=== PATIENT | female | born 1955 | race Caucasian/White ===

== ENCOUNTER 2020-04-12 08:06 | Outpatient (REF) | payer OTHER, SELFPAY ==
--- NOTE | 2020-04-12 11:32 | FL_ITS ---
EXAMINATION: XR FLUOROSCOPY WITH IMAGES CLINICAL INFORMATION: G58.8 - Other specified mononeuropathies COMPARISON: None. TECHNIQUE: Fluoroscopy performed by Corry Mckeon NP. Fluoroscopy time: 0.3 minutes DAP: 2.93 Gycm2 Images: 2 FINDINGS: There are 3 spinal needles overlying the left superior medial iliac wing. FL/FL guidance in treatment room IMPRESSION: Fluoroscopy for pain management procedures.
== END 2020-04-12 08:07 | disposition home or self-care (01) ==
LOC: HO.RADIR 08:06
PROVIDERS: Visit Provider Anesthesiology
DX: G58.8 Other specified mononeuropathies (principal)
CPT/HCPCS: 64450; Q9967

== ENCOUNTER → 2020-04-18 13:46 | Outpatient (BNVA) | payer OTHER, SELFPAY | PROVIDERS: PCP Internal Medicine; Referring Provider Internal Medicine; Visit Provider Anesthesiology | DX: M47.816 Spondylosis without myelopathy or radiculopathy, lumbar region (principal); G58.8 Other specified mononeuropathies; Z98.890 Other specified postprocedural states | CPT/HCPCS: 99212 ==

== ENCOUNTER 2020-04-26 05:09 | Outpatient (REF) | payer OTHER, SELFPAY ==
--- NOTE | 2020-04-26 09:13 | FL_ITS ---
EXAMINATION: XR FLUOROSCOPY WITH IMAGES CLINICAL INFORMATION: Spondylosis without myelopathy COMPARISON: 04/12/2020 TECHNIQUE: Fluoroscopy performed by Dr. Mckeon. Fluoroscopy time: 0.6 minutes DAP: 3.94 Gycm2 Images: 1 FL/FL guidance in treatment room IMPRESSION: A single fluoroscopic spot image demonstrates a needle with the tip positioned over the right superior endplate of the L1 vertebral body.
== END 2020-04-26 05:10 | disposition home or self-care (01) ==
LOC: HO.RADIR 05:09
PROVIDERS: Visit Provider Anesthesiology
DX: M47.816 Spondylosis without myelopathy or radiculopathy, lumbar region (principal); G58.8 Other specified mononeuropathies
CPT/HCPCS: 64493; 64494; 64495; Q9967

== ENCOUNTER 2020-09-07 14:00 | Outpatient (RCR) | payer OTHER, SELFPAY ==
--- NOTE | 2020-07-20 15:32 | MHC.PT.EP ---
[facility] [place] Office [place] Office [place] Office [address] Faustino Alcantar [address] [phone] F: [phone] F: [phone] F: [phone] F: [phone] Physical Therapy Plan of Care Date of Evaluation: 07/20/20 Date of Surgery: NA Diagnosis: SPONDYLOSIS WITHOUT MYELOPATHY OR RADICULOPATHY, LUMBAR REGION Assessment: Pt IS 65 YO F REFERRED TO PT FROM DR BENTLEY WITH LUMBAR SPONDYLOSIS. REPORTS LONG HX OF BACK PAIN WITH BOUTS OF RELIEF WITH INJECTIONS. BEFORE NEXT INJECTION, Pt IS REQUIRED TO PARTAKE IN PT. PRESENTS WITH DECREASED LE FLEXIBILITY AND STRENGTH WITH DECREASED CORE STRENGTH AND TIGHT LUMBAR PARASPINALS. Pt REPORTS HAS HAD PT IN PAST WITH SOME RELIEF BUT DOESNT CONTINUE WITH HOME PROGRAM (ED RE IMPORTANCE OF EX/STRETCHES EVEN IF HAS INJECTIONS). SHOULD BENEFIT FROM PT TO HELP ESTABLISH A HOME PROGRAM TO COINCIDE WITH HER INJECTIONS (OR TO POSSIBLY ASSIST WITH BACK PAIN RELIEF SO INJECTIONS ARE NOT NEEDED) Frequency and Duration: The patient will be seen 2X/WK X 6 WKS Short Term Goals: 1. Pt TO PERF 2-3 TASKS WITH PROPER BODY MECH 2. I HEP WITH DC EX PLAN Skilled Nursing Goals: 1 DECREASED BACK PAIN AT LEAST 50% WITH ADLS 2. INCREASED SUSANNE TO POSITIONS (IE SIT/STAND/WALK) FOR LONGER PDS OF TIME Treatment Plan: Modalities to reduce pain, spasms and effusion. Manual therapy to restore motion and function. Therapeutic exercise to improve strength and flexibility. Neuromuscular re-education for posture and balance. Therapeutic activities to return to functional activities of daily living. Electronically signed by: DIANN CARBALLO PT Please sign and return to therapist. Thank you for your referral.
--- NOTE | 2020-09-07 15:09 | MHC.PT.DC ---
[facility] [place] Office [place] Office [place] Office [address] Faustino Alcantar [address] [phone] F: [phone] F: [phone] F: [phone] F: [phone] Physical Therapy Discharge Report Diagnosis: SPONDYLOSIS WITHOUT MYELOPATHY OR RADICULOPATHY, LUMBAR REGION Date of Surgery: NA Date of Evaluation: 07/20/20 Date of Discharge: 09/07/20 Treatments to Date: 11 Cancellations to Date: 3 No Shows to Date: Discharge Status: Discharge Summary: HAS MET MOST PT GOALS. GOOD PERF EXS (I WITH HEP). REPORTS CONTINUED BACK PAIN..PLANNING ON CALLING FOR FU WITH DR BENTLEY FOR INJECTION. Pt ED RE IMPORTANCE OF CONTINUING WITH EX/STRETCHES UPON DC Electronically signed by: DIANN CARBALLO PT Please sign and return to therapist. Thank you for your referral.
== END 2020-09-07 15:10 | disposition other institution (70) ==
LOC: HO.PTWFD 14:00
PROVIDERS: Visit Provider Anesthesiology
DX: M47.816 Spondylosis without myelopathy or radiculopathy, lumbar region (principal)
CPT/HCPCS: 97110; 97140; 97162; 97530; 97535

== ENCOUNTER → 2020-10-05 14:49 | Outpatient (BNVA) | payer OTHER, SELFPAY | PROVIDERS: PCP Internal Medicine; Visit Provider Anesthesiology ==

== ENCOUNTER 2020-10-10 13:46 | Outpatient (REF) | payer OTHER, SELFPAY ==
--- NOTE | ~2020-10-10 | MR_ITS ---
MR LUMBAR SPINE WITHOUT CONTRAST CLINICAL INFORMATION: Spondylosis without myelopathy or radiculopathy. COMPARISON: Lumbar spine MRI 01/06/2018. TECHNIQUE: MRI of the lumbar spine was obtained using routine sequences without contrast. FINDINGS: 5 nonrib-bearing lumbar-type vertebral bodies. Straightening of the lumbar lordosis. Grade 1 anterolisthesis of L3 on L4. There is no bone marrow edema. There are no acute fractures. Vertebral body heights are maintained. Moderate disc volume loss at L1-L2 and L5-S1. Multilevel endplate osteophytes. Chronic upper endplate height loss on the right side at L2. Conus terminates at the L1 level. No significant soft tissue findings. L1-L2: Diffuse annular disc bulge with a superimposed shallow central disc protrusion that mildly narrows the central canal, slightly progressed. No foraminal stenosis. L2-L3: Diffuse annular disc bulge with a superimposed far left lateral disc osteophyte protrusion. Severe left and mild right facet arthropathy. Mild narrowing of the central canal and mild bilateral foraminal encroachment. Findings unchanged. L3-L4: Grade 1 anterolisthesis. Severe bilateral facet arthropathy. Diffuse annular disc bulge the superimposed shallow left paracentral disc protrusion. Stable mild narrowing of the central canal. Mild bilateral foraminal encroachment. Findings unchanged. L4-L5: There is a diffuse annular disc bulge the superimposed broad-based central disc protrusion that continues to compress the traversing L5 nerve root within the subarticular zones bilaterally. Moderate bilateral facet arthropathy. No central canal stenosis. Mild bilateral foraminal encroachment. L5-S1: Large central disc osteophyte protrusion continues to compress the traversing S1 nerve roots within the subarticular zones bilaterally, similar to the previous study. Mild narrowing of the central canal. Disc osteophyte and facet arthropathy result in stable moderate to severe bilateral foraminal stenosis with mass effect on the exiting L5 nerve roots bilaterally. MR/MR lumbar spine wo con IMPRESSION: - At L5-S1, a large central disc osteophyte protrusion continues to compress the traversing S1 nerve roots within the subarticular zones bilaterally and multifactorial degenerative changes result in stable moderate to severe bilateral foraminal stenosis with mass effect on the exiting L5 nerve roots bilaterally. - At L4-L5, a broad-based central disc protrusion continues to compress the traversing L5 nerve roots within the subarticular zones bilaterally. -Stable grade 1 degenerative anterolisthesis of L3 on L4 in the setting of advanced bilateral facet arthropathy at this level. Additional stable spondylitic changes throughout the lumbar spine as described.
== END 2020-10-10 13:47 | disposition home or self-care (01) ==
LOC: HO.MRI 13:46
PROVIDERS: Visit Provider Anesthesiology
DX: M47.816 Spondylosis without myelopathy or radiculopathy, lumbar region (principal)
CPT/HCPCS: 72148

== ENCOUNTER 2020-10-21 13:39 | Day surgery (SDC) | payer OTHER, SELFPAY ==
--- NOTE | 2020-10-19 12:51 | HO.ANESPROP2 ---
HPI - Anesthesia Eval Consult details Narrative: 65yo F for bilateral Facet Joint Injection,L4-L5 and L5-S1 PMFSH Active Problems Active Problems: All Active Problems (Updated 10/17/20 @ 09:38 by Loly Jorge) Other specified mononeuropathies (Acute) Spondylosis of lumbar spine (Acute) Other specified mononeuropathies (Acute) Past Medical History Medical History (Updated 10/17/20 @ 09:38 by Loly Jorge) Depression Hx of insomnia Other specified mononeuropathies Spondylosis of lumbar spine Surgical History Surgical History (Updated 10/17/20 @ 09:38 by Loly Jorge) History of surgery Meds Allergies Allergy/AdvReac Type Severity Reaction Status Date / Time Iodinated Contrast Media Allergy Severe HIVES Verified 10/17/20 09:34 [Iodinated Contrast Media - IV Dye] sulfamethoxazole Allergy Unknown Unknown Verified 10/17/20 09:34 [From Bactrim] trimethoprim [From Bactrim] Allergy Unknown Unknown Verified 10/17/20 09:34 morphine AdvReac Severe CAN NOT Verified 10/17/20 09:34 CONTROL BEHAVIOR Home Medications Medication Instructions Recorded Confirmed Last Taken Type citalopram 40 mg tablet 20 mg PO DAILY 10/05/20 Unknown History zolpidem 10 mg tablet 10 mg PO BEDTIME PRN 10/05/20 Unknown History Exam Exam Date and Time: October 19, 2020 1251 Assessment and Plan Assessment Anesthesia Assessment: Chart Reviewed
--- NOTE | ~2020-10-21 | FL_ITS ---
EXAMINATION: XR FLUOROSCOPY WITH IMAGES CLINICAL INFORMATION: Facet joint injection COMPARISON: None. TECHNIQUE: Fluoroscopy performed by Dr. Ivan Sosa. Fluoroscopy time: 0.7 minutes DAP: 3.7 mGycm2 Images: 4 FINDINGS: Images demonstrate needle placement and contrast injection the bilateral lower lumbar spine facet joints at L4-L5 and L5-S1 FL/FL guidance in OR IMPRESSION: Fluoroscopy guidance for bilateral lower lumbar spine facet joint injection.
[2020-10-21 13:54] VITALS: BP 153/97; PULSE 87; RESP 18; TEMP 36.2; O2SAT 93; BMI 24.2
--- NOTE | 2020-10-21 14:08 | MHC.SHP ---
Pre-Procedural Eval Section B Chief Complaint: spondylosis Details of Present Illness: the same as above Relevant Family History (Specify if Yes): No Relevant Social History: None Present Medications: see Short Stay Collaborative assessment Medical History: No relevant PMH History of Previous Operations: No relevant previous surgery Allergies: Allergies Allergy/AdvReac Type Severity Reaction Status Date / Time Iodinated Contrast Media Allergy Severe HIVES Verified 10/21/20 13:47 [Iodinated Contrast Media - IV Dye] sulfamethoxazole Allergy Mild Hives Verified 10/21/20 13:47 [From Bactrim] trimethoprim [From Bactrim] Allergy Mild Hives Verified 10/21/20 13:47 morphine AdvReac Severe CAN NOT Verified 10/21/20 13:47 CONTROL BEHAVIOR Review of Systems Sugical H&P ROS: Negative: Constitution, Cardiovascular, Respiratory, Neurological, Psychiatric, Hem-Onc, Allergic/Immunologic, Gastrointestinal, Genitourinary, Musculoskeletal, Integumentary, Endocrine and Eyes/Ears/Nose/Throat Exam Surgical H&P Exam: Normal: HEENT, Normal: Heart, Normal: Lungs, Normal: Extremities, Normal: Abdomen, Normal: Skin and Normal: Neurological Plan Diagnosis/Plan: Unchanged I have reviewed the history and physical and performed a pertinent physical examination on my patient. No changes have occurred unless specified.
--- NOTE | 2020-10-21 14:44 | PM.OP ---
Brief Operative Note Date of Service: 10/21/20 Pre-op diagnosis: facet joint arthropathy, lumbar sondylosis Post-op diagnosis: same Implants: L4-5 L5-S1 bilateral facet joint injections. Surgeon: Ivan Sosa MD Anesthesia: none Was an Metal Control Coordinator used for this Procedure?: No Estimated blood loss (mL): 3 Condition: stable Disposition: PACU
[2020-10-21 14:47] VITALS: BP 146/99; PULSE 84; RESP 20; TEMP 37.2; O2SAT 97
--- NOTE | 2020-10-21 14:54 | W.PM.OPN ---
Operative Note Operative Note Date of Service: 10/21/20 Narrative: Time-out was taken to identify the correct patient,procedure and side prior to starting the procedure. With the patient lying in the prone position, the patient was prepped and draped in the usual sterile fashion using ChloraPrep and a Sterile utility drapes.. The L4-L5 and L5-S1 levels were determined under fluoroscopy. Local anesthetic was given by raising a skin wheal and going down to the hub of a 27-gauge 1.25-inch needle. The 22-gauge 3.5-inch Quincke needle was introduced into each facet joint above. Omnipaque 300 was also injected to confirm intraarticular spread, and confirm no vascular runoff. Lateral view was obtained on each joint demonstrating the tip of the needle away and above of the patient's foraminae. Bupivacaine 0.5% 1.5 mL mixed with Kenalog was then injected slowly. Total dose of Kenalog was 80 mg. [place] were removed. Sterile Band-Aids were applied.The procedure was completed without complications and was tolerated well. The patient was discharged in stable condition.
== END 2020-10-21 15:10 ==
LOC: HO.SSS 13:40
PROVIDERS: PCP Internal Medicine; Visit Provider Anesthesiology
PROC: (CPT 64493; principal; 2020-10-21 14:50)
DX: M47.816 Spondylosis without myelopathy or radiculopathy, lumbar region (principal)
CPT/HCPCS: 64493; 64494; J3300; Q0163; Q9967

== ENCOUNTER → 2020-11-24 14:02 | Outpatient (BNVA) | payer OTHER, SELFPAY | PROVIDERS: PCP Internal Medicine; Visit Provider Anesthesiology | DX: M47.816 Spondylosis without myelopathy or radiculopathy, lumbar region (principal); G58.8 Other specified mononeuropathies; Z79.899 Other long term (current) drug therapy | CPT/HCPCS: 99212 ==

== ENCOUNTER 2021-04-27 10:30 | Day surgery (SDC) | payer MEDICARE, MEDICAID, SELFPAY ==
--- NOTE | ~2021-04-27 | FL_ITS ---
EXAMINATION: XR FLUOROSCOPY WITH IMAGES CLINICAL INFORMATION: Lumbar injection COMPARISON: None. TECHNIQUE: Fluoroscopy performed by Dr. Ivan Sosa. Fluoroscopy time: 0.4 minutes DAP: 4 mGycm2 Images: 4 FINDINGS: Fluoroscopy guidance was provided for facet joint injections of the bilateral lower lumbar spine. FL/FL guidance in OR IMPRESSION: Fluoroscopy guidance for lumbar spine pain management procedure.
[2021-04-27 10:42] VITALS: BMI 24.5
[2021-04-27 11:00] VITALS: BP 117/73; PULSE 80; RESP 16; TEMP 36.3; O2SAT 97
--- NOTE | 2021-04-27 11:51 | P.CONAN_ITS ---
HPI - Anesthesia Eval Consult details Narrative: 66 yo female patient for Bilateral L4-L5 & L5-S1 Facet Joint Inje ctions PMFSH Active Problems Active Problems: All Active Problems (Updated 04/27/21 @ 10:46 by Codie Serrano RN) Other specified mononeuropathies (Acute) Spondylosis of lumbar spine (Acute) Other specified mononeuropathies (Acute) COPD stable. Did not use inhaler today Past Medical History Medical History COPD (chronic obstructive pulmonary disease) Depression Elevated cholesterol Hx of attention deficit disorder Hx of insomnia Other specified mononeuropathies Spondylosis of lumbar spine Family History Family history of problems with anesthesia: No Surgical History Surgical History History of surgery Hx of cervical spine surgery History of Problems with Anesthesia: No Social History Social History Patient Tobacco Use Status: Former Tobacco user Quit Date: 15 mos ago Tobacco use type: Cigarette Use of substances other than those prescribed or required for medical reasons: No Are you DNR?: No Advance Directives: No Advance Directives Information Provided: Yes Meds Allergies Allergy/AdvReac Type Severity Reaction Status Date / Time Iodinated Contrast Media Allergy Severe HIVES Verified 04/27/21 10:46 [Iodinated Contrast Media - IV Dye] sulfamethoxazole Allergy Mild Hives Verified 04/27/21 10:46 [From Bactrim] trimethoprim [From Bactrim] Allergy Mild Hives Verified 04/27/21 10:46 morphine AdvReac Severe CAN NOT Verified 04/27/21 10:46 CONTROL BEHAVIOR Home Medications Medication Instructions Recorded Confirmed Last Taken Type albuterol sulfate 90 mcg/actuation 2 puff PO Q6H PRN 10/21/20 10/21/20 Unknown History aerosol inhaler aspirin 81 mg tablet,delayed 1 tab PO DAILY 10/21/20 10/21/20 10/20/20 21:00 History release cholecalciferol (vitamin D3) 10 2 tab PO DAILY 10/21/20 10/21/20 Unknown History mcg (400 unit) tablet (Vitamin D3) dextroamphetamine-amphetamine 20 1 tab PO DAILY 10/21/20 10/21/20 Unknown History mg tablet dextroamphetamine-amphetamine 30 1 tab PO QAM 10/21/20 10/21/20 Unknown History mg tablet fluticasone propionate 50 2 spray INTRANASAL DAILY 10/21/20 10/21/20 Unknown History mcg/actuation nasal spray,suspension folic acid 1 mg tablet 1 tab PO DAILY 10/21/20 10/21/20 Unknown History omeprazole 20 mg capsule,delayed 1 cap PO DAILY 10/21/20 10/21/20 Unknown History release simvastatin 40 mg tablet 1 tab PO BEDTIME 10/21/20 10/21/20 Unknown History trazodone 100 mg tablet 3 tab PO BEDTIME 10/21/20 10/21/20 Unknown History umeclidinium 62.5 mcg-vilanterol 1 puff PO DAILY 10/21/20 10/21/20 Unknown History 25 mcg/actuation powdr for inhalation (Anoro Ellipta) escitalopram oxalate 20 mg tablet 1 tab PO DAILY 04/27/21 04/27/21 Unknown History Exam Exam Date and Time: April 27, 2021 1151 Height,Weight and Vital Signs: Height 5 ft 6 in Weight 68.946 kg Last Vital Signs Temp 97.3 F 04/27/21 11:00 Pulse 80 04/27/21 11:00 Resp 16 04/27/21 11:00 BP 117/73 04/27/21 11:00 Pulse Ox 97 04/27/21 11:00 Airway Mallampati Class: II TM Dist: >3cm Neck ROM: Full Denture: Upper and Lower Heart: RRR Lungs: CTAB. Diminished Assessment and Plan Assessment Anesthesia Assessment: Anesthesia Plan Discussed and Chart Reviewed Final Anesthetic Review Family History of Problems with Anesthesia: No History of Problems with Anesthesia: No NPO: Yes ASA Class: II Final Preanesthetic Review: No Changes in Pt Med Stat, Meds/Allgs Chart Reviewed, Consent Obtained/Reviewed and Anes Risks/Benef Reviewed Patient Risk: Low Procedure Risk: Low Assessment/Block/Sedation in SS: Assess/Block/Sedation-SS Anesthetic Plan Anesthetic Plan: MAC: Disposition: Standard PACU
--- NOTE | 2021-04-27 12:04 | P.HPSUR_ITS ---
Pre-Procedural Eval Section A Date of Service: 04/27/21 The patient is an INPATIENT: No Changes since office visit: Yes Patient answered all questions The History & Physical has been completed within 30 days and I have reviewed it.: No Section B Chief Complaint: Spondylosis of Lumbar spine Details of Present Illness: as above Relevant Family History (Specify if Yes): No Relevant Social History: None Present Medications: see Short Stay Collaborative assessment Medical History: No relevant PMH History of Previous Operations: No relevant previous surgery Allergies: Allergies Allergy/AdvReac Type Severity Reaction Status Date / Time Iodinated Contrast Media Allergy Severe HIVES Verified 04/27/21 10:46 [Iodinated Contrast Media - IV Dye] sulfamethoxazole Allergy Mild Hives Verified 04/27/21 10:46 [From Bactrim] trimethoprim [From Bactrim] Allergy Mild Hives Verified 04/27/21 10:46 morphine AdvReac Severe CAN NOT Verified 04/27/21 10:46 CONTROL BEHAVIOR Review of Systems Sugical H&P ROS: Negative: Constitution, Cardiovascular, Respiratory, Neurological, Psychiatric, Hem-Onc, Allergic/Immunologic, Gastrointestinal, [place] tourinary, Musculoskeletal, Integumentary, Endocrine and Eyes/Ears/Nose/Throat Exam Surgical H&P Exam: Normal: HEENT, Normal: Heart, Normal: Lungs, Normal: Extremities, Normal: Abdomen, Normal: Skin and Normal: Neurological Plan Diagnosis/Plan: Unchanged I have reviewed the history and physical and performed a pertinent physical examination on my patient. No changes have occurred unless specified.
--- NOTE | 2021-04-27 12:12 | W.PM.OPN ---
Operative Note Operative Note Date of Service: 04/27/21 Narrative: The patient came to the procedure area to have abilateral L5-S1 and L4 L5 facet joint injections. After obtaining informed consent the patient was brought to the OR where she was positioned prone on the operating table. Time out was performed delineating correct site and side of the procedure. ASA m-rs were applied and the patient was sedated. The lower back of the patient was prepped and draped with ChloraPrep(the patient is allergic to IV contrast and iodine.) C-arm was brought over the operating field and square picture of the L4 and L5 vertebrae were demonstrated on the screen. . tilting machine ipsilateral to the right and the left silhouettes of the facet joint L4-5 and L5-S1 were demonstrated on the screen. The projection of the silhouette of the joints to the skin was injected with small amount of lidocaine 2% and after that 22 gauge 3-1/2 inch needle was driven to were the silhouette of the joint sequentially in tunnel vision fashion. When the needle touch the capsule of the joint the sensation of the capsule resistance was felt, contrast injection was not performed-patient is allergic to it. After that injection of the treatment solution containing bupivacaine 0.5% mixed with Kenalog was injected into each joint 1.5 cc each. Total dose of Kenalog was 80 mg. The patient tolerated procedure well. Upon completion of the injections the needle was removed sterile dressing was applied. Patient tolerated procedure well. She was taking outside of the operating room to recovery room where she recovered uneventfully. She went home without immediate complications.
[2021-04-27 12:45] VITALS: BP 101/56; PULSE 69; RESP 16; TEMP 36.6; O2SAT 98
--- NOTE | 2021-04-27 12:46 | PM.OP ---
Brief Operative Note Date of Service: 04/27/21 Pre-op diagnosis: Spondylosis lumbar spine Post-op diagnosis: same Procedure: Bilateral facet joint injections L4-5 and L5-S1. Implants: None Surgeon: Ivan Sosa MD Anesthesia: MAC Was an Financial Accounting Manager used for this Procedure?: No Estimated blood loss (mL): 3 Pathology: none sent Condition: stable Disposition: PACU
[2021-04-27 13:00] VITALS: BP 127/68; PULSE 71; RESP 16; TEMP 36.6; O2SAT 98
[2021-04-27 13:15] VITALS: BP 132/82; PULSE 70; RESP 17; TEMP 36.6; O2SAT 97
== END 2021-04-27 14:15 | disposition home or self-care (01) ==
PROVIDERS: PCP Internal Medicine; Visit Provider Anesthesiology
PROC: (CPT 64493; principal; 2021-04-27 12:00)
DX: M47.816 Spondylosis without myelopathy or radiculopathy, lumbar region (principal); M54.50 Low back pain, unspecified; G58.8 Other specified mononeuropathies; J44.9 Chronic obstructive pulmonary disease, unspecified; G47.00 Insomnia, unspecified; F32.9 Major depressive disorder, single episode, unspecified; Z91.041 Radiographic dye allergy status; Z88.2 Allergy status to sulfonamides; Z88.8 Allergy status to other drugs, medicaments and biological substances
CPT/HCPCS: 64493; 64494; J2250; J3300; Q9967

== ENCOUNTER → 2021-05-29 13:50 | Outpatient (BNVA) | payer MEDICARE, MEDICAID, SELFPAY | PROVIDERS: PCP Internal Medicine; Visit Provider Anesthesiology | DX: M47.816 Spondylosis without myelopathy or radiculopathy, lumbar region (principal); G58.8 Other specified mononeuropathies | CPT/HCPCS: 99212 ==

== ENCOUNTER 2021-07-28 11:19 | Day surgery (SDC) | payer MEDICARE, MEDICAID, SELFPAY ==
--- NOTE | 2021-07-27 12:10 | HO.ANESPROP2 ---
Documented by User: Charu Pepe NP 07/27/21 12:11 HPI - Anesthesia Eval Consult details Narrative: 66yo F for Bilateral Facet Joint Injection s/p same 04/2021 with MAC PMFSH Active Problems Active Problems: All Active Problems (Updated 04/27/21 @ 10:46 by Codie Serrano RN) Other specified mononeuropathies (Acute) Spondylosis of lumbar spine (Acute) Other specified mononeuropathies (Acute) Past Medical History Medical History COPD (chronic obstructive pulmonary disease) Depression Elevated cholesterol Hx of attention deficit disorder Hx of insomnia Other specified mononeuropathies Spondylosis of lumbar spine Family History Family history of problems with anesthesia: No Surgical History Surgical History History of surgery Hx of cervical spine surgery History of Problems with Anesthesia: No Social History Social History Patient Tobacco Use Status: Former Tobacco user Quit Date: 18 months Tobacco use type: Cigarette Use of substances other than those prescribed or required for medical reasons: Yes Are you DNR?: No Advance Directives: No Advance Directives Information Provided: No Meds Allergies Allergy/AdvReac Type Severity Reaction Status Date / Time Iodinated Contrast Media Allergy Severe HIVES Verified 05/29/21 14:04 [Iodinated Contrast Media - IV Dye] sulfamethoxazole Allergy Mild Hives Verified 05/29/21 14:04 [From Bactrim] trimethoprim [From Bactrim] Allergy Mild Hives Verified 05/29/21 14:04 morphine AdvReac Severe CAN NOT Verified 05/29/21 14:04 CONTROL BEHAVIOR Home Medications Medication Instructions Recorded Confirmed Last Taken Type albuterol sulfate 90 mcg/actuation 2 puff PO Q6H PRN 10/21/20 10/21/20 Unknown History aerosol inhaler aspirin 81 mg tablet,delayed 1 tab PO DAILY 10/21/20 10/21/20 10/20/20 21:00 History release cholecalciferol (vitamin D3) 10 2 tab PO DAILY 10/21/20 10/21/20 Unknown History mcg (400 unit) tablet (Vitamin D3) dextroamphetamine-amphetamine 20 1 tab PO DAILY 10/21/20 10/21/20 Unknown History mg tablet dextroamphetamine-amphetamine 30 1 tab PO QAM 10/21/20 10/21/20 Unknown History mg tablet fluticasone propionate 50 2 spray INTRANASAL DAILY 10/21/20 10/21/20 Unknown History mcg/actuation nasal spray,suspension folic acid 1 mg tablet 1 tab PO DAILY 10/21/20 10/21/20 Unknown History omeprazole 20 mg capsule,delayed 1 cap PO DAILY 10/21/20 10/21/20 Unknown History release simvastatin 40 mg tablet 1 tab PO BEDTIME 10/21/20 10/21/20 Unknown History trazodone 100 mg tablet 3 tab PO BEDTIME 10/21/20 10/21/20 Unknown History umeclidinium 62.5 mcg-vilanterol 1 puff PO DAILY 10/21/20 10/21/20 Unknown History 25 mcg/actuation powdr for inhalation (Anoro Ellipta) escitalopram oxalate 20 mg tablet 1 tab PO DAILY 04/27/21 04/27/21 Unknown History Exam Exam Date and Time: July 27, 2021 1210 Assessment and Plan Assessment Anesthesia Assessment: Chart Reviewed Final Anesthetic Review Family History of Problems with Anesthesia: No History of Problems with Anesthesia: No Documented by User: Keith Alfred 07/28/21 13:01 [facility] Past Medical History Medical History COPD (chronic obstructive pulmonary disease) Depression Elevated cholesterol Hx of attention deficit disorder Hx of insomnia Other specified mononeuropathies Spondylosis of lumbar spine Surgical History Surgical History History of surgery Hx of cervical spine surgery Social History Social History Patient Tobacco Use Status: Former Tobacco user Quit Date: 18 months Tobacco use type: Cigarette Use of substances other than those prescribed or required for medical reasons: Yes Are you DNR?: No Advance Directives: No Advance Directives Information Provided: No Meds Allergies Allergy/AdvReac Type Severity Reaction Status Date / Time Iodinated Contrast Media Allergy Severe HIVES Verified 05/29/21 14:04 [Iodinated Contrast Media - IV Dye] sulfamethoxazole Allergy Mild Hives Verified 05/29/21 14:04 [From Bactrim] trimethoprim [From Bactrim] Allergy Mild Hives Verified 05/29/21 14:04 morphine AdvReac Severe CAN NOT Verified 05/29/21 14:04 CONTROL BEHAVIOR Home Medications Medication Instructions Recorded Confirmed Last Taken Type albuterol sulfate 90 mcg/actuation 2 puff PO Q6H PRN 10/21/20 10/21/20 Unknown History aerosol inhaler aspirin 81 mg tablet,delayed 1 tab PO DAILY 10/21/20 10/21/20 10/20/20 21:00 History release cholecalciferol (vitamin D3) 10 2 tab PO DAILY 10/21/20 10/21/20 Unknown History mcg (400 unit) tablet (Vitamin D3) dextroamphetamine-amphetamine 20 1 tab PO DAILY 10/21/20 10/21/20 Unknown History mg tablet dextroamphetamine-amphetamine 30 1 tab PO QAM 10/21/20 10/21/20 Unknown History mg tablet fluticasone propionate 50 2 spray INTRANASAL DAILY 10/21/20 10/21/20 Unknown History mcg/actuation nasal spray,suspension folic acid 1 mg tablet 1 tab PO DAILY 10/21/20 10/21/20 Unknown History omeprazole 20 mg capsule,delayed 1 cap PO DAILY 10/21/20 10/21/20 Unknown History release simvastatin 40 mg tablet 1 tab PO BEDTIME 10/21/20 10/21/20 Unknown History trazodone 100 mg tablet 3 tab PO BEDTIME 10/21/20 10/21/20 Unknown History umeclidinium 62.5 mcg-vilanterol 1 puff PO DAILY 10/21/20 10/21/20 Unknown History 25 mcg/actuation powdr for inhalation (Anoro Ellipta) escitalopram oxalate 20 mg tablet 1 tab PO DAILY 04/27/21 04/27/21 Unknown History Exam Airway Mallampati Class: II Neck ROM: Limited Denture: Upper and Lower Loose/Missing/Broken Teeth: Yes Heart: rrr Lungs: bl breath sounds Assessment and Plan Assessment Anesthesia Assessment: Anesthesia Plan Discussed Final Anesthetic Review NPO: Yes ASA Class: III Final Preanesthetic Review: Meds/Allgs Chart Reviewed, Consent Obtained/Reviewed and Anes Risks/Benef Reviewed Patient Risk: Intermediate Procedure Risk: Intermediate Anesthetic Plan Anesthetic Plan: MAC: Disposition: Standard PACU
--- NOTE | ~2021-07-28 | FL_ITS ---
EXAMINATION: XR FLUOROSCOPY WITH IMAGES CLINICAL INFORMATION: Pain management lumbar injections (facet joints) COMPARISON: Fluoroscopic spot views 04/27/2021 TECHNIQUE: Fluoroscopy performed by Dr. Ivan Sosa. Fluoroscopy time: 0.5 minutes DAP: 2.41 Gycm2 Images: 4 FINDINGS: There are spinal needles in the region of the bilateral L4-L5 and L5-S1 facets. There is some contrast seen at the without vascular communication. Multilevel degenerative changes are again noted with vertebral spurring and variable disc narrowing. FL/FL guidance in OR IMPRESSION: Fluoroscopy for pain management procedures.
[2021-07-28 11:48] VITALS: BP 117/80; PULSE 79; RESP 18; TEMP 37.1; O2SAT 97
[2021-07-28] MEDS: Lactated Ringers 1,000 ML 100 ML IVCONT (12:03)
--- NOTE | 2021-07-28 12:32 | MHC.SHP ---
Pre-Procedural Eval Section A Date of Service: 07/28/21 The patient is an INPATIENT: No Changes since office visit: Yes Patient answered all questions The History & Physical has been completed within 30 days and I have reviewed it.: No Section B Chief Complaint: spondylosis Details of Present Illness: as above Relevant Family History (Specify if Yes): No Relevant Social History: None Present Medications: None Medical History: No relevant PMH History of Previous Operations: No relevant previous surgery Allergies: Allergies Allergy/AdvReac Type Severity Reaction Status Date / Time Iodinated Contrast Media Allergy Severe HIVES Verified 05/29/21 14:04 [Iodinated Contrast Media - IV Dye] sulfamethoxazole Allergy Mild Hives Verified 05/29/21 14:04 [From Bactrim] trimethoprim [From Bactrim] Allergy Mild Hives Verified 05/29/21 14:04 morphine AdvReac Severe CAN NOT Verified 05/29/21 14:04 CONTROL BEHAVIOR Review of Systems Sugical H&P ROS: Negative: Constitution, Cardiovascular, Respiratory, Neurological, Psychiatric, Hem-Onc, Allergic/Immunologic, Gastrointestinal, Genitourinary, Musculoskeletal, Integumentary, Endocrine and Eyes/Ears/Nose/Throat Exam Surgical H&P Exam: Normal: HEENT, Normal: Heart, Normal: Lungs, Normal: Extremities, Normal: Abdomen, Normal: Skin and Normal: Neurological Plan Diagnosis/Plan: Unchanged I have reviewed the history and physical and performed a pertinent physical examination on my patient. No changes have occurred unless specified.
[2021-07-28 13:30] VITALS: BP 151/83; PULSE 62; RESP 13; TEMP 36.4; O2SAT 98
--- NOTE | 2021-07-28 13:38 | P.BOP_ITS ---
Brief Operative Note Date of Service: 07/28/21 Pre-op diagnosis: spondylosis lumbar Procedure: B/l facet joint injections L4- L5 and L5- S1. Implants: none Surgeon: Ivan Sosa MD Anesthesia: MAC Was an Publicity Agent used for this Procedure?: No Estimated blood loss (mL): 0 Condition: stable Disposition: PACU
--- NOTE | 2021-07-28 13:41 | W.PM.OPN ---
Operative Note Operative Note Date of Service: 07/28/21 Narrative: Emily is a very pleasant 66 y.o. female who came today to the OR for bilateral Facet joint injections L4-5 and L5-S1. After obtaining informed consent the patient was position prone on operating table [place] [facility] the [facility] monitors were applied and patient was deeply sedated. Time-out was performed delineating correct site and side of the procedure, name and date of of the patient. her lower back was prepped with ChloraPrep and draped with sterile utility towels. C-arm was brought over the operative field and picture of L4 and L5 vertebra as well as sacral bone were demonstrated on the screen. The point of interest were delineated as the bilateral L4-5 and L5-S1 facet joints. 22 gauge 3-1/2 inch needle was driven to age joint in tunnel vision fashion. After the needle entered the joint injection of the contrast was performed demonstrating arthrogram. After that treatment solution containing bupivacaine 0.5% 1.5-2 cc mixed with Kenalog was injected into each joint. Total dose of Kenalog was 40 mg. Upon completion of the injections needle was withdrawn and sterile dressing was applied. The patient was tolerated procedure well. She was taken to PACU where she recovered uneventfully.
[2021-07-28 13:45] VITALS: BP 121/69; PULSE 73; RESP 16; O2SAT 93
[2021-07-28 14:00] VITALS: BP 116/77; PULSE 74; RESP 16; O2SAT 97
[2021-07-28 14:15] VITALS: BP 142/80; PULSE 71; RESP 16; TEMP 36.4; O2SAT 97
== END 2021-07-28 14:51 | disposition home or self-care (01) ==
PROVIDERS: PCP Internal Medicine; Visit Provider Anesthesiology
PROC: (CPT 64493; principal; 2021-07-28 12:20)
DX: M47.816 Spondylosis without myelopathy or radiculopathy, lumbar region (principal); G58.8 Other specified mononeuropathies; M54.50 Low back pain, unspecified; M48.07 Spinal stenosis, lumbosacral region; J44.9 Chronic obstructive pulmonary disease, unspecified; E78.00 Pure hypercholesterolemia, unspecified; Z79.51 Long term (current) use of inhaled steroids; Z79.82 Long term (current) use of aspirin; Z79.899 Other long term (current) drug therapy; Z88.2 Allergy status to sulfonamides; Z88.8 Allergy status to other drugs, medicaments and biological substances; Z91.041 Radiographic dye allergy status; Z87.891 Personal history of nicotine dependence
CPT/HCPCS: 64493; 64494; J2250; J3010; J3300; Q9967

== ENCOUNTER → 2021-09-28 15:33 | Outpatient (BNVA) | payer MEDICARE, MEDICAID, SELFPAY | PROVIDERS: PCP Internal Medicine; Visit Provider Nurse Practitioner Family | DX: M47.816 Spondylosis without myelopathy or radiculopathy, lumbar region (principal); M47.812 Spondylosis without myelopathy or radiculopathy, cervical region | CPT/HCPCS: 99212 ==

== ENCOUNTER 2021-11-02 13:00 | Outpatient (RCR) | payer MEDICARE, MEDICAID, SELFPAY ==
--- NOTE | 2021-10-18 12:45 | MHC.PT.EP ---
[facility] [place] Office [place] Office [place] Office [address] [place] [address] Dr Faustino Alcantar [address] [phone] F: [phone] F: [phone] F: [phone] F: [phone] Physical Therapy Plan of Care Date of Evaluation: Date of Surgery: CERVICAL SURGERY C5-6 FUSION (CAMILA) 20 YRS AGO Diagnosis: CERVICALGIA, CERVICAL SPONDYLOSIS, LBP Assessment: Pt IS 66 YO F REFERRED TO PT FROM PAIN MANAGEMENT ([facility]) WITH CERVICAL SPONDYLOSIS AND LUMBAR SPONDYLOSIS (PER SCRIPT 'PLEASE INCLUDE US/HEAT DEEP TISSUE MASSAGE IN HER THERAPY'). Pt REPORTS PT FOR BACK ABOUT 1 YR AGO WITH SOME RELIEF. PRESENTS WITH MULTIPLE AREAS OF PAIN (NECK, LB/HIPS, SHLDERS) WITH OVERALL LIMITED ROM AND STRENGTH. Pt WITH HX OF CERVICAL SURGERY (CAMILA PLACEMENT) ABOUT 20 YRS AGO. OF NOTE, Pt WITH +DROP ARM TEST ON R FOR SHLDER WITH REPORTED HX OF RC ISSUES. Pt REPORTS ANXIETY AND DEPRESSION WITH MEDS AND COUNSELING WHICH SHE FEELS IMPACTS HER MM TIGHTNESS . Pt FAIR CANDIDATE FOR PT. SPOKE WITH HER ABOUT THE ROLE OF PT WITH ST WORK PART OF IT, BUT A HOME PROGRAM FOR IMPROVING OVERALL STRENGTH AND FLEXIBILITY CORE. ALSO TALKED WITH Pt RE IMPORTANCE OF POSSIBLY RETURNING TO HOBBIES/INTERESTS FROM PAST (CRAFTING ETC) TO HELP WITH GOAL OF DECREASING PAIN Frequency and Duration: The patient will be seen 2X/WK X 6 WKS Short Term Goals: 1. INCREASED AWARENESS POSTURE AND POSTURE SUPPORT FOR POSITIONING FOR COMFORT (IMPROVED SUSANNE TO POSTIONS) 2. I HEP WITH DC EX PLAN 3. LESS PAIN WITH CERV ROM REPORTED 4. LESS HAS (FREQ AND INTENSITY) REPORTED [facility] Goals: 1. DECREASED NECK PAIN AT LEAST 50% WITH ADS 2. DECREASED LBP AT LEAST 50% WITH ADLS 3. IMPROVED NPDI 4. IMPROVED MOD OSWESTRY 5. RETURN TO CRAFTING Treatment Plan: Modalities to reduce pain, spasms and effusion. Manual therapy to restore motion and function. Therapeutic exercise to improve strength and flexibility. Neuromuscular re-education for posture and balance. Therapeutic activities to return to functional activities of daily living. Electronically signed by: DIANN CARBALLO PT Please sign and return to therapist. Thank you for your referral.
--- NOTE | 2021-12-08 14:33 | MHC.PT.DC ---
[facility] [place] Office [place] Office [place] Office [address] Faustino Alcantar [address] [phone] F: [phone] F: [phone] F: [phone] F: [phone] Physical Therapy Discharge Report Diagnosis: CERVICALGIA, CERVICAL SPONDYLOSIS, LBP Date of Surgery: CERVICAL SURGERY C5-6 FUSION (CAMILA) 20 YRS AGO Date of Evaluation: 10/18/21 Date of Discharge: 12/08/21 Treatments to Date: 6 Cancellations to Date: No Shows to Date: Discharge Status: Patient Elected to Stop Recommend MD Follow-up Discharge Summary: Pt LAST SEEN ON 11/03/21 BY LYSSA PIPER PT,DPT. PER THAT NOTE: '11/03/21 Pt expressing short term relief with taping trial. Awaiting TENS from [employer]. Therapist phoned pain management and spoke to referring provider KARIN Pop regarding concern for patient status and progress with therapy to date. Due to ongoing severe R shoulder pain (worse at night), poor mechanics, poor ROM, (+) drop arm and impingement testing. Pt TTP distal supraspinatus, base of C/S and suboccipital musculature. Pt exhibits atrophy of posterior RTC and forward/rounded shoulders. Hx cervical fusion (Dr. Brenna GERMAN). In addition to MRI of R shoulder pt may benefit from further imaging to reassess status of C/S following hx fusion. Pain management provider will be faxing referral to orthopedics, ordering MRI of R shoulder, and placing referral to [facility] (TENS machine) [place]. Therapist was told patient should be receiving a call from [facility] in the next few days. Therapist reiterated the importance of modification in avoiding AROM of the R shoulder into abduction, performing AAROM within gentle ROM for R shoulder, gentle periscap squeezes, the benefit of trialing ice to aide in pain in the R shoulder. Pt has hx of chronic pain however she was very tearful at session and expressed how the severity is impacting her mental health/quality of life. She is currently seeing a counselor for her pain. Therapist was very pleased to connect with ZACHARY Pop,ROBERTO from Pain management to relay concerns and status to date. Pt was retaped today with goal of providing scapular stability in addition to RTC support with (+) mild relief expressed. Pt educate re: application/removal/goals of use. ' Pt THEN SEEN BY DR ESCALERA IN ORTHO ON 11/06, HAD MRI 11/10, FU WITH [facility] ON 11/20. PER THAT NOTE: 'Plan 1. Patient may benefit from massage therapy for her multiple taut bands in upper neck regions and between shoulder blades. She continues to reports significant muscle stiffness and spasms unresponsive to conservative measures with previous cervical fusion surgery over 20 years ago. Script for massage therapy provided. Continue TENS unit as needed. 2. Orthopedic Referral to [facility] for second opion for surgical evaluation of right shoulder pain with recent MRI consistent with advanced acromioclavicular and glenohumeral osteoarthritis and supraspinatus and infraspinatus tendenosis with anterior articular surface partial tearing without new or increasing rotator cuff tendon tear. We briefly discussed non-surgical treatment options for right shoulder pain with intra-articular injections, ablative or stimulative options. Patient will follow up with us after orthopedic evaluation and sooner if needed. ' Pt WILL BE DISCHARGED FROM PT AT THIS TIME AND AWAIT FURTHER ORDERS APPROPRIATE BASED ON 2ND OPINION ORTHOPEDIC RECOMMENDATION Electronically signed by: DIANN CARBALLO PT Please sign and return to therapist. Thank you for your referral.
== END 2021-12-08 14:34 | disposition home or self-care (01) ==
LOC: HO.PTWFD 13:00
PROVIDERS: Visit Provider Nurse Practitioner Family
DX: M54.2 Cervicalgia (principal); M47.812 Spondylosis without myelopathy or radiculopathy, cervical region; M47.816 Spondylosis without myelopathy or radiculopathy, lumbar region
CPT/HCPCS: 97014; 97110; 97140; 97162; 97535

== ENCOUNTER → 2021-11-06 14:10 | Outpatient (BNVA) | payer MEDICARE, MEDICAID, SELFPAY | PROVIDERS: PCP Internal Medicine; Visit Provider Orthopaedic Surgery | DX: M25.511 Pain in right shoulder (principal) | CPT/HCPCS: 99212 ==

== ENCOUNTER 2021-11-10 17:56 | Outpatient (REF) | payer MEDICARE, MEDICAID, SELFPAY ==
--- NOTE | ~2021-11-10 | MR_ITS ---
EXAMINATION: MR SHOULDER WITHOUT CONTRAST, RIGHT CLINICAL INFORMATION: Right shoulder pain radiating to the neck. Limited range of motion. COMPARISON: Right shoulder MRI dated 03/21/2019. TECHNIQUE: MRI of the shoulder without contrast was performed on a high-field scanner. FINDINGS: ROTATOR CUFF: Supraspinatus tendinosis with anterior articular surface partial tearing measuring up to 1.4 x 1.5 cm (AP x mL). Tearing appears less prominent when compared to the prior examination. No new focal thickness rotator cuff tendon tear. Mild infraspinatus tendinosis. No muscle atrophy or fatty infiltration. BICEPS: Normal. CORACOACROMIAL ARCH: The undersurface of the acromion is minimally curved with small subacromial spurs. Axazdycm-cl-[id number] acromioclavicular osteoarthritis. LABRUM/CAPSULE: Normal. GLENOHUMERAL JOINT/MARROW: Diffuse glenohumeral articular cartilage thinning and signal heterogeneity with small marginal osteophytes. MR/MR shoulder RT wo con IMPRESSION: 1. Supraspinatus tendinosis with anterior articular surface partial tearing, slightly less prominent when compared to the prior examination. Mild infraspinatus tendinosis. No new or increasing rotator cuff tendon tear. 2. Crvppxvm-xr-qfuebg acromioclavicular osteoarthritis, increased when compared to the prior examination. Small subacromial spurs. 3. Qtsn-in-irpszzhz glenohumeral osteoarthritis, progressed when compared to the prior examination.
== END 2021-11-10 17:57 | disposition home or self-care (01) ==
LOC: HO.MRI 17:56
PROVIDERS: Visit Provider Nurse Practitioner Family
DX: M25.511 Pain in right shoulder (principal)
CPT/HCPCS: 73221

== ENCOUNTER → 2021-11-20 13:39 | Outpatient (BNVA) | payer MEDICARE, MEDICAID, SELFPAY | PROVIDERS: PCP Internal Medicine; Visit Provider Nurse Practitioner Family | DX: M54.2 Cervicalgia (principal); M47.812 Spondylosis without myelopathy or radiculopathy, cervical region; M25.511 Pain in right shoulder; M77.8 Other enthesopathies, not elsewhere classified; M19.011 Primary osteoarthritis, right shoulder; Z98.890 Other specified postprocedural states | CPT/HCPCS: 99212 ==

== ENCOUNTER → 2022-07-13 14:55 | Outpatient (BNVA) | payer MEDICARE, MEDICAID, SELFPAY | PROVIDERS: PCP Internal Medicine; Visit Provider Nurse Practitioner Family | DX: M53.3 Sacrococcygeal disorders, not elsewhere classified (principal); M46.1 Sacroiliitis, not elsewhere classified; M19.011 Primary osteoarthritis, right shoulder; M77.8 Other enthesopathies, not elsewhere classified; M54.2 Cervicalgia; M47.816 Spondylosis without myelopathy or radiculopathy, lumbar region | CPT/HCPCS: 99212 ==

== ENCOUNTER 2022-08-01 10:00 | Outpatient (REF) | payer OTHER, SELFPAY | END 2022-08-01 10:01 | disposition home or self-care (01) | LOC: HO.BBR 10:00 | PROVIDERS: Visit Provider Internal Medicine Hematology & Oncology | DX: Z13.89 Encounter for screening for other disorder (principal) ==

== ENCOUNTER 2022-08-03 10:55 | Day surgery (SDC) | payer OTHER, SELFPAY ==
[2022-07-31 10:17] VITALS: BMI 23.8
--- NOTE | ~2022-08-03 | FL_ITS ---
EXAMINATION: XR FLUOROSCOPY WITH IMAGES CLINICAL INFORMATION: SI joint steroid injection COMPARISON: MR lumbar spine 10/10/2020 TECHNIQUE: Fluoroscopy Supervised By: Dr. Ivan Sosa. Fluoroscopy Time: 0.3 minutes. Cumulative Dose: 6.08 mGy. DAP: 1.24 Gycm2. Images: 1. FINDINGS: There is a spinal needle overlying the mid to lower left SI joint. FL/FL guidance in OR IMPRESSION: Fluoroscopy for pain management procedure.
[2022-08-03 11:04] VITALS: BMI 23.3
[2022-08-03 11:10] VITALS: BP 116/79; PULSE 79; RESP 16; TEMP 36.8; O2SAT 96
[2022-08-03] MEDS: Lactated Ringers 1,000 ML 50 ML IVCONT (11:33)
--- NOTE | 2022-08-03 12:13 | MHC.SHP ---
Pre-Procedural Eval Section A Date of Service: 08/03/22 The patient is an INPATIENT: No Changes since office visit: Yes Patient answered all questions The History & Physical has been completed within 30 days and I have reviewed it.: No Section B Chief Complaint: Sacroiliitis,Sacrococcygeal disorders, Details of Present Illness: as above Relevant Family History (Specify if Yes): No Relevant Social History: None Present Medications: None Medical History: Significant History History of Previous Operations: No relevant previous surgery Allergies: Allergies Allergy/AdvReac Type Severity Reaction Status Date / Time Iodinated Contrast Media Allergy Severe HIVES Verified 11/20/21 13:43 [Iodinated Contrast Media - IV Dye] sulfamethoxazole Allergy Mild Hives Verified 11/20/21 13:43 [From Bactrim] trimethoprim [From Bactrim] Allergy Mild Hives Verified 11/20/21 13:43 morphine AdvReac Severe CAN NOT Verified 11/20/21 13:43 CONTROL BEHAVIOR Review of Systems Sugical H&P ROS: Negative: Constitution, Cardiovascular, Respiratory, Neurological, Psychiatric, Hem-Onc, Allergic/Immunologic, Gastrointestinal, Genitourinary, Musculoskeletal, Integumentary and Eyes/Ears/Nose/Throat and Yes, Specify: Endocrine (hereditary hemochromatosis) Exam Surgical H&P Exam: Normal: HEENT, Normal: Heart, Normal: Lungs, Normal: Extremities, Normal: Abdomen, Normal: Skin and Normal: Neurological Plan Diagnosis/Plan: Unchanged I have reviewed the history and physical and performed a pertinent physical examination on my patient. No changes have occurred unless specified. Time Spent With Patient Time: Total time managing care of this patient today ____ minutes.
--- NOTE | 2022-08-03 12:14 | P.OP_ITS ---
Operative Note Operative Note Date of Service: 08/03/22 Narrative: Therapeutic left-sided sacroiliac joint injection. ? ?Informed consent was explained to the patient. All questions were explained and? answered.? The patient was taken inside the operating room where she was p ositioned prone on the operating table. Time-out was performed delineating correct site, side, the nature of the procedure, patient's allergy, preoperative antibiotic if needed.? All operating room staff was participating in OR time-out procedure. ? ? The lower back was prepped with ChloraPrep and draped with sterile utility towels.? C-arm was brought over the operating field and sq picture of the patient's pelvis was delineated on the screen.? Left sacroiliac joint was chosen as the target of the injection. Tilting machine contralateral to the right anterior and posterior portion of the sacroiliac joints with wore superimposed. The projection of point interest to the skin was injected with small amount of lidocaine 1%. After that 22 gauge 3-1/2 inch needle was driven to were the silhouette of the sacroiliac joint in tunnel vision fashion. When needle entered the joint injection of the contrast was performed delineating intra-articular spread of the contrast. After that injection of the ropivacaine 0.5% 5 cc mixed with kenalog 40 mg was injected into the joint. The patient tolerated procedure well. ? Upon completion of the injections? needle was? removed and sterile Band-Aids were applied.?
--- NOTE | 2022-08-03 12:41 | HO.ANESPROP2 ---
HPI - Anesthesia Eval Consult details Narrative: sij pain PMFSH Active Problems Active Problems: All Active Problems (Updated 08/03/22 @ 11:03 by Samantha Norris RN) Other specified mononeuropathies (Acute) Cervical spondylosis (Acute) Cervicalgia (Acute) Right shoulder pain (Acute) Right shoulder tendonitis (Acute) Osteoarthritis of right acromioclavicular joint (Acute) Osteoarthritis of right glenohumeral joint (Acute) Sacroiliitis (Acute) Sacroiliac joint pain (Acute) Hx of cervical spine surgery (Acute) Spondylosis of lumbar spine (Acute) Other specified mononeuropathies (Acute) Past Medical History Medical History (Updated 08/03/22 @ 11:03 by Samantha Norris RN) COPD (chronic obstructive pulmonary disease) Depression Elevated cholesterol Hemochromatosis Hx of attention deficit disorder Hx of insomnia Other specified mononeuropathies Spondylosis of lumbar spine Family History Family history of problems with anesthesia: No Surgical History Surgical History History of surgery Hx of cervical spine surgery History of Problems with Anesthesia: No Social History Social History Patient Tobacco Use Status: Former Tobacco user Quit Date: 18 months Tobacco use type: Cigarette Use of substances other than those prescribed or required for medical reasons: No Are you DNR?: No Advance Directives: No Advance Directives Information Provided: Yes Meds Allergies Allergy/AdvReac Type Severity Reaction Status Date / Time Iodinated Contrast Media Allergy Severe HIVES Verified 11/20/21 13:43 [Iodinated Contrast Media - IV Dye] sulfamethoxazole Allergy Mild Hives Verified 11/20/21 13:43 [From Bactrim] trimethoprim [From Bactrim] Allergy Mild Hives Verified 11/20/21 13:43 morphine AdvReac Severe CAN NOT Verified 11/20/21 13:43 CONTROL BEHAVIOR Active Medications: Current Medications Lactated Ringer's (Lr) 1,000 mls @ 50 mls/hr IVCONT .Q20H CHRISTY Last Admin: 08/03/22 11:33 Dose: 50 mls/hr Home Medications Medication Instructions Recorded Confirmed Last Taken Type albuterol sulfate 90 mcg/actuation 2 puff PO Q6H PRN wheezing 10/21/20 10/21/20 Unknown History aerosol inhaler aspirin 81 mg tablet,delayed 1 tab PO DAILY 10/21/20 10/21/20 10/20/20 21:00 History release cholecalciferol (vitamin D3) 10 2 tab PO DAILY 10/21/20 10/21/20 Unknown History mcg (400 unit) tablet (Vitamin D3) dextroamphetamine-amphetamine 20 1 tab PO DAILY 10/21/20 10/21/20 Unknown History mg tablet dextroamphetamine-amphetamine 30 1 tab PO QAM 10/21/20 10/21/20 Unknown History mg tablet fluticasone propionate 50 2 spray intranasal DAILY 10/21/20 10/21/20 Unknown History mcg/actuation nasal spray,suspension folic acid 1 mg tablet 1 tab PO DAILY 10/21/20 10/21/20 Unknown History omeprazole 20 mg capsule,delayed 1 cap PO DAILY 10/21/20 10/21/20 Unknown History release simvastatin 40 mg tablet 1 tab PO BEDTIME 10/21/20 10/21/20 Unknown History trazodone 100 mg tablet 3 tab PO BEDTIME 10/21/20 10/21/20 Unknown History umeclidinium 62.5 mcg-vilanterol 1 puff PO DAILY 10/21/20 10/21/20 Unknown History 25 mcg/actuation powdr for inhalation (Anoro Ellipta) escitalopram oxalate 20 mg tablet 1 tab PO DAILY 04/27/21 04/27/21 Unknown History clonazepam 1 mg tablet 1 mg PO BEDTIME PRN 09/28/21 Unknown History methenamine hippurate 1 gram tablet 1 g PO BID 09/28/21 Unknown History donepezil 5 mg tablet 5 mg PO BEDTIME 07/13/22 Unknown History escitalopram oxalate 10 mg tablet 10 mg PO DAILY 07/13/22 Unknown History meloxicam 15 mg tablet 15 mg PO DAILY 07/13/22 Unknown History Exam Exam Date and Time: August 03, 2022 124 Height,Weight and Vital Signs: Height 5 ft 6 in Weight 65.771 kg Last Vital Signs Temp 98.2 F 08/03/22 11:10 Pulse 79 08/03/22 11:10 Resp 16 08/03/22 11:10 BP 116/79 08/03/22 11:10 Pulse Ox 96 08/03/22 11:10 O2 Del Method 08/03/22 11:10 Airway Mallampati Class: II TM Dist: >3cm Neck ROM: Limited Heart: rrr Lungs: cta Assessment and Plan Assessment Anesthesia Assessment: Anesthesia Plan Discussed and Chart Reviewed Final Anesthetic Review Family History of Problems with Anesthesia: No History of Problems with Anesthesia: No NPO: Yes ASA Class: II Final Preanesthetic Review: No Changes in Pt Med Stat, Meds/Allgs Chart Reviewed, Consent Obtained/Reviewed and Anes Risks/Benef Reviewed Patient Risk: Intermediate Procedure Risk: Low Anesthetic Plan Anesthetic Plan: MAC: and Agree w/ Assess. and Plan Disposition: Standard PACU
[2022-08-03 13:31] VITALS: BP 88/54; PULSE 75; RESP 16; TEMP 36.6; O2SAT 97
--- NOTE | 2022-08-03 13:34 | P.BOP_ITS ---
Brief Operative Note Date of Service: 08/03/22 Pre-op diagnosis: sacroiliitis Post-op diagnosis: same Procedure: left SI joint steroid injection. Surgeon: Ivan Sosa MD Anesthesia: MAC Was an Mathematical Physicist used for this Procedure?: No Estimated blood loss (mL): 0 Condition: stable Disposition: PACU
[2022-08-03 13:46] VITALS: BP 123/77; PULSE 69; RESP 18; O2SAT 100
[2022-08-03 13:58] VITALS: BP 117/75; PULSE 65; RESP 18; TEMP 37.1; O2SAT 97
== END 2022-08-03 14:25 | disposition home or self-care (01) ==
PROVIDERS: Visit Provider Anesthesiology
PROC: 3E0U33Z Introduction of Anti-inflammatory into Joints, Percutaneous Approach (ICD-10-PCS; CPT 27096; principal; 2022-08-03 12:10)
DX: M53.3 Sacrococcygeal disorders, not elsewhere classified (principal); M46.1 Sacroiliitis, not elsewhere classified; M47.816 Spondylosis without myelopathy or radiculopathy, lumbar region; M19.011 Primary osteoarthritis, right shoulder; M77.8 Other enthesopathies, not elsewhere classified; M54.2 Cervicalgia; J44.9 Chronic obstructive pulmonary disease, unspecified; E78.00 Pure hypercholesterolemia, unspecified; E83.119 Hemochromatosis, unspecified; F32.A Depression, unspecified; Z79.51 Long term (current) use of inhaled steroids; Z79.82 Long term (current) use of aspirin; Z79.899 Other long term (current) drug therapy; Z88.2 Allergy status to sulfonamides; Z88.8 Allergy status to other drugs, medicaments and biological substances; Z91.041 Radiographic dye allergy status; Z87.891 Personal history of nicotine dependence
CPT/HCPCS: G0260; J3301

== ENCOUNTER 2022-08-08 12:04 | Outpatient (REF) | payer OTHER, SELFPAY | END 2022-08-08 12:05 | disposition home or self-care (01) | LOC: HO.BBR 12:04 | PROVIDERS: Visit Provider Internal Medicine Hematology & Oncology | DX: Z13.89 Encounter for screening for other disorder (principal) ==

== ENCOUNTER 2022-08-15 11:51 | Outpatient (REF) | payer OTHER, SELFPAY | END 2022-08-15 11:52 | disposition home or self-care (01) | LOC: HO.BBR 11:51 | PROVIDERS: Visit Provider Internal Medicine Hematology & Oncology | DX: Z13.89 Encounter for screening for other disorder (principal) ==

== ENCOUNTER 2022-08-29 09:10 | Outpatient (REF) | payer OTHER, SELFPAY | END 2022-08-29 09:11 | disposition home or self-care (01) | LOC: HO.BBR 09:10 | PROVIDERS: Visit Provider Internal Medicine Hematology & Oncology | DX: Z13.89 Encounter for screening for other disorder (principal) ==

== ENCOUNTER 2022-09-05 09:16 | Outpatient (REF) | payer OTHER, SELFPAY | END 2022-09-05 09:17 | disposition home or self-care (01) | LOC: HO.BBR 09:16 | PROVIDERS: Visit Provider Internal Medicine Hematology & Oncology | DX: Z13.89 Encounter for screening for other disorder (principal) ==

== ENCOUNTER 2022-09-12 10:15 | Outpatient (REF) | payer OTHER, SELFPAY | END 2022-09-12 10:16 | disposition home or self-care (01) | LOC: HO.BBR 10:15 | PROVIDERS: Visit Provider Internal Medicine Hematology & Oncology | DX: Z13.89 Encounter for screening for other disorder (principal) ==

== ENCOUNTER → 2022-09-17 14:43 | Outpatient (BNVA) | payer OTHER, SELFPAY | PROVIDERS: Visit Provider Nurse Practitioner Family | DX: M25.50 Pain in unspecified joint (principal); M79.641 Pain in right hand; M79.642 Pain in left hand; M47.812 Spondylosis without myelopathy or radiculopathy, cervical region; M46.1 Sacroiliitis, not elsewhere classified; M53.3 Sacrococcygeal disorders, not elsewhere classified; M47.816 Spondylosis without myelopathy or radiculopathy, lumbar region; E83.110 Hereditary hemochromatosis | CPT/HCPCS: 99212 ==

== ENCOUNTER 2022-09-19 10:04 | Outpatient (REF) | payer OTHER, SELFPAY | END 2022-09-19 10:05 | disposition home or self-care (01) | LOC: HO.BBR 10:04 | PROVIDERS: Visit Provider Internal Medicine Hematology & Oncology | DX: Z13.89 Encounter for screening for other disorder (principal) ==

== ENCOUNTER 2022-10-03 10:01 | Outpatient (REF) | payer OTHER, SELFPAY | END 2022-10-03 10:02 | disposition home or self-care (01) | LOC: HO.BBR 10:01 | PROVIDERS: Visit Provider Internal Medicine Hematology & Oncology | DX: Z13.89 Encounter for screening for other disorder (principal) ==

== ENCOUNTER 2022-10-10 10:05 | Outpatient (REF) | payer OTHER, SELFPAY | END 2022-10-10 10:06 | disposition home or self-care (01) | LOC: HO.BBR 10:05 | PROVIDERS: Visit Provider Internal Medicine Hematology & Oncology | DX: Z13.89 Encounter for screening for other disorder (principal) ==

== ENCOUNTER 2022-10-17 10:15 | Outpatient (REF) | payer OTHER, SELFPAY | END 2022-10-17 10:16 | disposition home or self-care (01) | LOC: HO.BBR 10:15 | PROVIDERS: Visit Provider Internal Medicine Hematology & Oncology | DX: Z13.89 Encounter for screening for other disorder (principal) ==

== ENCOUNTER 2022-10-24 10:13 | Outpatient (REF) | payer OTHER, SELFPAY | END 2022-10-24 10:14 | disposition home or self-care (01) | LOC: HO.BBR 10:13 | PROVIDERS: Visit Provider Internal Medicine Hematology & Oncology | DX: Z13.89 Encounter for screening for other disorder (principal) ==

== ENCOUNTER 2022-10-31 10:06 | Outpatient (REF) | payer OTHER, SELFPAY | END 2022-10-31 10:07 | disposition home or self-care (01) | LOC: HO.BBR 10:06 | PROVIDERS: Visit Provider Internal Medicine Hematology & Oncology | DX: Z13.89 Encounter for screening for other disorder (principal) ==

== ENCOUNTER 2022-11-14 10:59 | Outpatient (REF) | payer OTHER, SELFPAY | END 2022-11-14 11:00 | disposition home or self-care (01) | LOC: HO.BBR 10:59 | PROVIDERS: Visit Provider Internal Medicine Hematology & Oncology | DX: Z13.89 Encounter for screening for other disorder (principal) ==

== ENCOUNTER 2022-11-21 10:39 | Outpatient (REF) | payer OTHER, SELFPAY | END 2022-11-21 10:40 | disposition home or self-care (01) | LOC: HO.BBR 10:39 | PROVIDERS: Visit Provider Internal Medicine Hematology & Oncology | DX: Z13.89 Encounter for screening for other disorder (principal) ==

== ENCOUNTER → 2022-11-26 11:46 | Outpatient (BNVA) | payer OTHER, SELFPAY | PROVIDERS: Visit Provider Anesthesiology | DX: M25.50 Pain in unspecified joint (principal); M79.641 Pain in right hand; M79.642 Pain in left hand; M47.812 Spondylosis without myelopathy or radiculopathy, cervical region; M46.1 Sacroiliitis, not elsewhere classified; M53.3 Sacrococcygeal disorders, not elsewhere classified; E83.110 Hereditary hemochromatosis | CPT/HCPCS: 99212 ==

== ENCOUNTER 2022-12-05 10:02 | Outpatient (REF) | payer OTHER, SELFPAY | END 2022-12-05 10:03 | disposition home or self-care (01) | LOC: HO.BBR 10:02 | PROVIDERS: Visit Provider Internal Medicine Hematology & Oncology | DX: Z13.89 Encounter for screening for other disorder (principal) ==

== ENCOUNTER 2022-12-12 10:20 | Outpatient (REF) | payer OTHER, SELFPAY | END 2022-12-12 10:21 | disposition home or self-care (01) | LOC: HO.BBR 10:20 | PROVIDERS: Visit Provider Internal Medicine Hematology & Oncology | DX: Z13.89 Encounter for screening for other disorder (principal) ==

== ENCOUNTER 2022-12-14 10:42 | Day surgery (SDC) | payer OTHER, SELFPAY ==
--- NOTE | 2022-12-13 09:45 | P.CONAN_ITS ---
Documented by User: Charu Pepe NP 12/13/22 09:46 HPI - Anesthesia Eval Consult details Narrative: 67yo F for Bilateral Diagnostic Sacroiliac Joint Steroid [facility]p [facility] Active Problems Active Problems: All Active Problems (Updated 09/17/22 @ 21:59 by ZACHARY Rodriguez) Hereditary hemochromatosis (Acute) Bilateral hand pain (Acute) Polyarthralgia (Acute) Other specified mononeuropathies (Acute) Cervical spondylosis (Acute) Cervicalgia (Acute) Right shoulder pain (Acute) Right shoulder tendonitis (Acute) Osteoarthritis of right acromioclavicular joint (Acute) Osteoarthritis of right glenohumeral joint (Acute) Sacroiliitis (Acute) Sacroiliac joint pain (Acute) Hx of cervical spine surgery (Acute) Spondylosis of lumbar spine (Acute) Other specified mononeuropathies (Acute) Past Medical History Medical History COPD (chronic obstructive pulmonary disease) Depression Elevated cholesterol Hemochromatosis Hx of attention deficit disorder Hx of insomnia Other specified mononeuropathies Spondylosis of lumbar spine Family History Family history of problems with anesthesia: No Surgical History Surgical History History of surgery Hx of cervical spine surgery History of Problems with Anesthesia: No Social History Social History Patient Tobacco Use Status: Former Tobacco user Quit Date: 2019 Tobacco use type: Cigarette Use of substances other than those prescribed or required for medical reasons: No Are you DNR?: No Advance Directives: No Advance Directives Information Provided: Yes Meds Allergies Allergy/AdvReac Type Severity Reaction Status Date / Time sulfamethoxazole Allergy Mild Hives Verified 11/26/22 11:52 [From Bactrim] trimethoprim [From Bactrim] Allergy Mild Hives Verified 11/26/22 11:52 morphine AdvReac Severe CAN NOT Verified 11/26/22 11:52 CONTROL BEHAVIOR Home Medications Medication Instructions Recorded Confirmed Last Taken Type albuterol sulfate 90 mcg/actuation 2 puff PO Q6H PRN wheezing 10/21/20 10/21/20 Unknown History aerosol inhaler aspirin 81 mg tablet,delayed 1 tab PO DAILY 10/21/20 10/21/20 10/20/20 21:00 History release cholecalciferol (vitamin D3) 10 2 tab PO DAILY 10/21/20 10/21/20 Unknown History mcg (400 unit) tablet (Vitamin D3) dextroamphetamine-amphetamine 20 1 tab PO DAILY 10/21/20 10/21/20 Unknown History mg tablet dextroamphetamine-amphetamine 30 1 tab PO QAM 10/21/20 10/21/20 Unknown History mg tablet fluticasone propionate 50 2 spray intranasal DAILY 10/21/20 10/21/20 Unknown History mcg/actuation nasal spray,suspension folic acid 1 mg tablet 1 tab PO DAILY 10/21/20 10/21/20 Unknown History omeprazole 20 mg capsule,delayed 1 cap PO DAILY 10/21/20 10/21/20 Unknown History release simvastatin 40 mg tablet 1 tab PO BEDTIME 10/21/20 10/21/20 Unknown History trazodone 100 mg tablet 3 tab PO BEDTIME 10/21/20 10/21/20 Unknown History umeclidinium 62.5 mcg-vilanterol 1 puff PO DAILY 10/21/20 10/21/20 Unknown H istory 25 mcg/actuation powdr for inhalation (Anoro Ellipta) escitalopram oxalate 20 mg tablet 1 tab PO DAILY 04/27/21 04/27/21 Unknown History clonazepam 1 mg tablet 1 mg PO BEDTIME PRN 09/28/21 Unknown History methenamine hippurate 1 gram tablet 1 g PO BID 09/28/21 Unknown History donepezil 5 mg tablet 5 mg PO BEDTIME 07/13/22 Unknown History escitalopram oxalate 10 mg tablet 10 mg PO DAILY 07/13/22 Unknown History meloxicam 15 mg tablet 15 mg PO DAILY 07/13/22 Unknown History Exam Exam Date and Time: December 13, 2022 7630 Assessment and Plan Assessment Anesthesia Assessment: Chart Reviewed Final Anesthetic Review Family History of Problems with Anesthesia: No History of Problems with Anesthesia: No Documented by User: Kisha Olivo MD 12/14/22 11:40 [facility] Past Medical History Medical History COPD (chronic obstructive pulmonary disease) Depression Elevated cholesterol Hemochromatosis Hx of attention deficit disorder Hx of insomnia Other specified mononeuropathies Spondylosis of lumbar spine Surgical History Surgical History History of surgery Hx of cervical spine surgery Social History Social History Patient Tobacco Use Status: Former Tobacco user Quit Date: 2019 Tobacco use type: Cigarette Use of substances other than those prescribed or required for medical reasons: No Are you DNR?: No Advance Directives: No Advance Directives Information Provided: Yes Meds Allergies Allergy/AdvReac Type Severity Reaction Status Date / Time sulfamethoxazole Allergy Mild Hives Verified 11/26/22 11:52 [From Bactrim] trimethoprim [From Bactrim] Allergy Mild Hives Verified 11/26/22 11:52 morphine AdvReac Severe CAN NOT Verified 11/26/22 11:52 CONTROL BEHAVIOR Home Medications Medication Instructions Recorded Confirmed Last Taken Type albuterol sulfate 90 mcg/actuation 2 puff PO Q6H PRN wheezing 10/21/20 10/21/20 Unknown History aerosol inhaler aspirin 81 mg tablet,delayed 1 tab PO DAILY 10/21/20 10/21/20 10/20/20 21:00 History release cholecalciferol (vitamin D3) 10 2 tab PO DAILY 10/21/20 10/21/20 Unknown History mcg (400 unit) tablet (Vitamin D3) dextroamphetamine-amphetamine 20 1 tab PO DAILY 10/21/20 10/21/20 Unknown History mg tablet dextroamphetamine-amphetamine 30 1 tab PO QAM 10/21/20 10/21/20 Unknown History mg tablet fluticasone propionate 50 2 spray intranasal DAILY 10/21/20 10/21/20 Unknown History mcg/actuation nasal spray,suspension folic acid 1 mg tablet 1 tab PO DAILY 10/21/20 10/21/20 Unknown History omeprazole 20 mg capsule,delayed 1 cap PO DAILY 10/21/20 10/21/20 Unknown History release simvastatin 40 mg tablet 1 tab PO BEDTIME 10/21/20 10/21/20 Unknown History trazodone 100 mg tablet 3 tab PO BEDTIME 10/21/20 10/21/20 Unknown History umeclidinium 62.5 mcg-vilanterol 1 puff PO DAILY 10/21/20 10/21/20 Unknown History 25 mcg/actuation powdr for inhalation (Anoro Ellipta) escitalopram oxalate 20 mg tablet 1 tab PO DAILY 04/27/21 04/27/21 Unknown History clonazepam 1 mg tablet 1 mg PO BEDTIME PRN 09/28/21 Unknown History methenamine hippurate 1 gram tablet 1 g PO BID 09/28/21 Unknown History donepezil 5 mg tablet 5 mg PO BEDTIME 07/13/22 Unknown History escitalopram oxalate 10 mg tablet 10 mg PO DAILY 07/13/22 Unknown History meloxicam 15 mg tablet 15 mg PO DAILY 07/13/22 Unknown History Exam Airway Mallampati Class: II TM Dist: >3cm Neck ROM: Full Heart: rrr Lungs: cta Assessment and Plan Assessment Anesthesia Assessment: Anesthesia Plan Discussed Final Anesthetic Review NPO: Yes ASA Class: III Final Preanesthetic Review: No Changes in Pt Med Stat, Meds/Allgs Chart Reviewed, Consent Obtained/Reviewed and Anes Risks/Benef Reviewed Patient Risk: Low Procedure Risk: Low Anesthetic Plan Anesthetic Plan: MAC: Disposition: Standard PACU
[2022-12-14 10:57] VITALS: BP 128/79; PULSE 73; RESP 16; TEMP 36.7; O2SAT 97; BMI 23.1
[2022-12-14] MEDS: Lactated Ringers 1,000 ML 100 ML IVCONT (11:17)
--- NOTE | 2022-12-14 11:29 | MHC.SHP ---
Pre-Procedural Eval Section A Date of Service: 12/14/22 The patient is an INPATIENT: No Changes since office visit: Yes Patient answered all questions The History & Physical has been completed within 30 days and I have reviewed it.: No Section B Chief Complaint: Sacroiliitis, not elsewhere classified Details of Present Illness: as above Relevant Family History (Specify if Yes): No Relevant Social History: None Present Medications: see Short Stay Collaborative assessment Medical History: No relevant PMH History of Previous Operations: No relevant previous surgery Allergies: Allergies Allergy/AdvReac Type Severity Reaction Status Date / Time sulfamethoxazole Allergy Mild Hives Verified 11/26/22 11:52 [From Bactrim] trimethoprim [From Bactrim] Allergy Mild Hives Verified 11/26/22 11:52 morphine AdvReac Severe CAN NOT Verified 11/26/22 11:52 CONTROL BEHAVIOR Review of Systems Sugical H&P ROS: Negative: Constitution, Cardiovascular, Respiratory, Neurological, Psychiatric, Hem-Onc, Allergic/Immunologic, Gastrointestinal, Genitourinary, Integumentary, Endocrine and Eyes/Ears/Nose/Throat and Yes, Specify: Musculoskeletal (sacroiliitis) Exam Surgical H&P Exam: Normal: HEENT, Normal: Heart, Normal: Lungs, Normal: Extremities, Normal: Abdomen, Normal: Skin and Normal: Neurological Plan I have reviewed the history and physical and performed a pertinent physical examination on my patient. No changes have occurred unless specified. Time Spent With Patient Time: Total time managing care of this patient today __5__ minutes.
[2022-12-14 12:05] VITALS: BP 110/66; PULSE 66; RESP 16; TEMP 36.4; O2SAT 97
--- NOTE | 2022-12-14 12:15 | PM.OP ---
Brief Operative Note Date of Service: 12/14/22 Pre-op diagnosis: sacroiliitis Post-op diagnosis: same Procedure: sacroiliac joint therapeutic injection bilateral Surgeon: Ivan Sosa MD Anesthesia: GETA Was an Manager Social Responsibility used for this Procedure?: No Estimated blood loss (mL): 1 Condition: stable Disposition: PACU
--- NOTE | 2022-12-14 12:16 | P.OP_ITS ---
Operative Note Operative Note Date of Service: 12/14/22 Narrative: Bilateral therapeutic sacroiliac joint injection. Informed consent was explained thoroughly to the patient.? All questions about benefits and risks for the procedure were answered. Patient came to the operating room and was positioned prone on the operating table with the pillow under the pelvis . [place] [employer] monitors were applied and patient was deeply sedated. The lower back and buttocks of the patient were prepped with ChloraPrep prepped and draped with sterile utility towels.? Sterilely draped C-arm was brought over the operating field and sq picture of patient's pelvis was demonstrated on the screen.? For the both? joints tilting C-arm contralateral to the site of each joint the most posterior portion of the joints was superimposed with anterior silhouette of the joint.? Skin was injected in the projection of the joint slightly medial to the location of the joint with 25 gauge 1/2 inch needle using local lidocaine 2% . After that 22 gauge 3 and 1/2 inch needle was driven sequentially to the right and after that to the left SI joint in tunnel vision fashion.? When needle entered the joint capsule injection of the contrast was performed demonstrating intra-articular and minimally periarticular spread of the contrast.? After that 4.5 cc. of ropivacaine 0.5%mixed with kenalog? was injected into each? joint.? total dose of kenalog is 80 mg - 40 mg into each jorge alberto int. Upon completion of the injections the needle was removed, sterile dressing was applied.? Upon completion of the injection patient was taken outside of the operating room to the recovery room where recovered uneventfully...
[2022-12-14 12:20] VITALS: BP 134/81; PULSE 63; RESP 16; TEMP 36.4; O2SAT 98
== END 2022-12-14 13:10 | disposition home or self-care (01) ==
PROVIDERS: PCP Nurse Practitioner; Visit Provider Anesthesiology
PROC: 3E0U33Z Introduction of Anti-inflammatory into Joints, Percutaneous Approach (ICD-10-PCS; CPT 27096; principal; 2022-12-14 11:40)
DX: M46.1 Sacroiliitis, not elsewhere classified (principal); M53.3 Sacrococcygeal disorders, not elsewhere classified; M47.816 Spondylosis without myelopathy or radiculopathy, lumbar region; M47.812 Spondylosis without myelopathy or radiculopathy, cervical region; M54.2 Cervicalgia; M79.641 Pain in right hand; M79.642 Pain in left hand; G58.8 Other specified mononeuropathies; E83.110 Hereditary hemochromatosis; J44.9 Chronic obstructive pulmonary disease, unspecified; F32.A Depression, unspecified; E78.00 Pure hypercholesterolemia, unspecified; Z79.51 Long term (current) use of inhaled steroids; Z79.82 Long term (current) use of aspirin; Z79.899 Other long term (current) drug therapy; Z88.2 Allergy status to sulfonamides; Z88.8 Allergy status to other drugs, medicaments and biological substances; Z91.041 Radiographic dye allergy status; Z98.890 Other specified postprocedural states; Z87.891 Personal history of nicotine dependence
CPT/HCPCS: G0260; J3301

== ENCOUNTER 2022-12-25 12:27 | Outpatient (REF) | payer OTHER, SELFPAY | END 2022-12-25 12:28 | disposition home or self-care (01) | LOC: HO.BBR 12:27 | PROVIDERS: PCP Nurse Practitioner; Visit Provider Internal Medicine Hematology & Oncology | DX: Z13.89 Encounter for screening for other disorder (principal) ==

== ENCOUNTER 2023-01-04 14:02 | Outpatient (AMB) | payer OTHER, SELFPAY ==
[2023-01-04 14:05] VITALS: BP 116/72; PULSE 82; TEMP 36.5; O2SAT 97; BMI 23.2
--- NOTE | 2023-01-04 14:05 | MHC.OFFVIS ---
Intake Vital Signs 01/04/23 14:05 Height 5 ft 6 in Weight 143 lb 15.39 oz BMI 23.2 BP 116/72 Blood Pressure Location Rt brachial Position Sitting Pulse 82 Pulse Source Pulse Oximeter Temp 97.7 F Temp Source Skin Pulse Oximetry (%) 97 Intake Visit Reasons: BL hand pain Intake Note: New pt presents today for consult. C/o bl hand pain. States she was seen by [facility] in the past and [facility]. Staff Accountant Required: No Accompanied by: Self / Same As Patient Allergies sulfamethoxazole [From Bactrim] Allergy (Mild, Verified 01/04/23 14:18) Hives trimethoprim [From Bactrim] Allergy (Mild, Verified 01/04/23 14:18) Hives morphine Adverse Reaction (Severe, Verified 01/04/23 14:18) CAN NOT CONTROL BEHAVIOR Medication List - Last Reconciled 01/04/23 by Zackary Lay MD albuterol sulfate 90 mcg/actuation 2 puffs PO Q6H PRN aspirin 1 tab PO DAILY cholecalciferol (vitamin D3) (Vitamin D3) 2 tabs PO DAILY clonazepam 1 mg PO BEDTIME PRN dextroamphetamine-amphetamine 20 mg 1 tab PO DAILY dextroamphetamine-amphetamine 30 mg 1 tab PO QAM donepezil 10 mg PO DAILY escitalopram oxalate 10 mg PO DAILY fluticasone propionate 50 mcg/actuation 2 sprays intranasal DAILY meloxicam 15 mg PO DAILY nortriptyline 10 mg PO BEDTIME omeprazole 1 cap PO DAILY prednisone 5 mg PO DIRECTED simvastatin 1 tab PO BEDTIME tizanidine 4 mg PO Q8H PRN 90 days trazodone 3 tabs PO BEDTIME umeclidinium-vilanterol 62.5-25 mcg/actuation (Anoro Ellipta) 1 puff PO DAILY HPI HPI Comments History of Present Illness Details This is a 67-year-old female with generalized osteoarthritis who presents for evaluation of bilateral hand pain. Patient states that she has had hand pain for years. She used to see a home school coordinator and the [facility]. She used to use thumb splints. Over the last 1-2 years she has been having episodes of pain and stiffness of her knuckles especially the 3rd knuckle bilaterally. This is not consistently worse in the morning or at night Symptoms were improved when patient receives intra-articular injections for other joints. She was diagnosed with hemochromatosis about a year ago and has been doing weekly phlebotomy. She does not feel that phlebotomy helped her joint symptoms [facility] Medical History (Updated 01/04/23 @ 15:03 by Zackary Lay MD) COPD (chronic obstructive pulmonary disease) Depression Elevated cholesterol Hemochromatosis Hx of attention deficit disorder Hx of insomnia Other specified mononeuropathies Spondylosis of lumbar spine Surgical History H/O shoulder surgery History of surgery Hx of cervical spine surgery Family History Father Heart disease Mother Lung cancer Other Family history of osteoarthritis Social History Alcohol intake: current Alcohol intake frequency: does not drink Patient Tobacco Use Status: Former Tobacco user Quit Date: 2019 Tobacco use type: Cigarette Female Reproductive History Menstrual Total pregnancies: 3 Number of Living Children: 2 Ab spontaneous: 1 Review of Systems Const Reports fatigue, Reports headache(s) and Reports weakness Eyes Reports itchy eyes ENT Reports dry mouth and Reports headache(s) Card Reports chest pain GI Reports dyspepsia Musc Reports arthralgias, Reports joint swelling and Reports stiffness Skin/Breast Reports alopecia and Reports unusual bruising Neuro Reports headache(s) and Reports weakness Psych Reports anxiety and Reports depression Endo Reports fatigue Aller/Immun Reports itchy eyes Physical Exam Vital Signs: Last Vital Signs Temp 97.7 F 01/04/23 14:05 Pulse 82 01/04/23 14:05 BP 116/72 01/04/23 14:05 Pulse Ox 97 01/04/23 14:05 BMI result Body Mass Index 23.2 Const General: cooperative, healthy appearing and comfortable Nutritional Appearance: average body habitus Orientation/consciousness: patient oriented x3 Limitations: no limitations HEENT Head: Yes normocephalic and Yes atraumatic Mouth: moist mucous membranes Resp Effort & Inspection: normal respiratory effort and able to speak in complete sentences Auscultation: clear to auscultation bilaterally Cardio Rate: regular rate Rhythm: regular rhythm GI Palpation (GI): Soft to palpation and nontender Neuro General: patient oriented x3 Extrem Other: Limited range of motion of her right shoulder Osteoarthritic changes of both hands with prominent Heberden's nodes Right 3rd MCP swelling tenderness Right 2nd and 5th MCP tenderness. Positive MCP squeeze test right hand Left 3rd MCP tenderness Assessment & Plan Assessment & Plan (1) Osteoarthritis of hands, bilateral: Code(s): M19.041 - Primary osteoarthritis, right hand; M19.042 - Primary osteoarthritis, left hand Qualifiers: Osteoarthritis type: other secondary Qualified Code(s): M19.241 - Secondary osteoarthritis, right hand; M19.242 - Secondary osteoarthritis, left hand Plan: This is a 67-year-old female who presents for evaluation of bilateral hand pain. Upon evaluation patient has osteoarthritic changes of both hands but she has prominent swelling and tenderness in her 3rd MCPs. Interestingly she was diagnosed with hemochromatosis about a year ago and started phlebotomy. The pain in her MCPs is suggestive of hemochromatosis. Will order serology to screen for underlying autoimmune rheumatic disease. Check x-rays of involved joints. Referred patient to occupational therapy for bilateral hand osteoarthritis. Start prednisone therapeutic taper trial Follow-up in 2 months Plan I spent 34 minutes reviewing patient's chart, evaluating patient, ordering diagnostic workup, counseling patient and documenting in the chart Orders: Orders OT Evaluation and Treatment Today M19.041 - Primary osteoarthritis, right hand, M19.042 - Primary osteoarthritis, left hand Complete Blood Count Auto Diff Today M79.641 - Pain in right hand, M79.642 - Pain in left hand Comprehensive Met. Panel Today M79.641 - Pain in right hand, M79.642 - Pain in left hand C Reactive Protein Today M79.641 - Pain in right hand, M79.642 - Pain in left hand Erythrocyte Sedimentation Rate Today M79.641 - Pain in right hand, M79.642 - Pain in left hand Cyclic Citrullinated Peptide Today M79.641 - Pain in right hand, M79.642 - Pain in left hand Rheumatoid Factor Today M79.641 - Pain in right hand, M79.642 - Pain in left hand Ferritin Today E83.110 - Hereditary hemochromatosis, M19.041 - Primary osteoarthritis, right hand, M19.042 - Primary osteoarthritis, left hand XR hand wrist LT Today E83.110 - Hereditary hemochromatosis, M19.041 - Primary osteoarthritis, right hand, M19.042 - Primary osteoarthritis, left hand XR hand wrist RT Today E83.110 - Hereditary hemochromatosis, M19.041 - Primary osteoarthritis, right hand, M19.042 - Primary osteoarthritis, left hand XR foot LT min 3V Today E83.110 - Hereditary hemochromatosis XR foot RT min 3V Today E83.110 - Hereditary hemochromatosis XR ankle LT min 3V Today E83.110 - Hereditary hemochromatosis XR ankle RT min 3V Today E83.110 - Hereditary hemochromatosis Medications: New prednisone Take 3 tabs by mouth once daily with breakfast for 1 week then 2 tabs daily for 1 week then 1 tab daily for 1 week then stop Do not take meloxicam when you are taking prednisone 5 mg PO DIRECTED 42 tabs 0RF Coding Level of Care Code New Pt Level 3 (97901) Diagnoses Osteoarthritis of hands, bilateral M19.241; M19.242 Osteoarthritis type: other secondary
== END 2023-01-04 14:57 | disposition home or self-care (01) ==
PROVIDERS: PCP Nurse Practitioner; Visit Provider Student in an Organized Health Care Education/Training Program
DX: M19.241 Secondary osteoarthritis, right hand (principal); M19.242 Secondary osteoarthritis, left hand
CPT/HCPCS: 99203

== ENCOUNTER → 2023-01-04 14:02 | Outpatient (BNVA) | payer OTHER, SELFPAY | PROVIDERS: PCP Nurse Practitioner; Visit Provider Student in an Organized Health Care Education/Training Program | DX: M19.241 Secondary osteoarthritis, right hand (principal); M19.242 Secondary osteoarthritis, left hand | CPT/HCPCS: 99202 ==

== ENCOUNTER 2023-01-04 15:14 | Outpatient (REF) | payer OTHER, SELFPAY ==
--- NOTE | ~2023-01-04 | XR_ITS ---
X-ray bilateral hands CLINICAL HISTORY: Hereditary hemochromatosis. COMPARISON: X-ray left hand 01/16/2018. TECHNIQUE: 4 views of each hand. FINDINGS: No acute fractures or subluxation. Moderate joint space narrowing and subcortical sclerosis of the first carpometacarpal joints and triscaphe spaces bilaterally. Mild to moderate joint space narrowing and subcortical sclerosis of multiple interphalangeal joints as well as first through third metacarpophalangeal joints of each hand. No erosive changes or chondrocalcinosis. No abnormal soft tissue calcifications. No unexpected radiopaque foreign bodies. XR/XR hand wrist RT IMPRESSION: No acute fractures or subluxation. No erosions or abnormal soft tissue calcifications. Mild to moderate multifocal degenerative osteoarthritis in both hands.
--- NOTE | ~2023-01-04 | XR_ITS ---
X-RAY BILATERAL ANKLES X-RAY BILATERAL FEET CLINICAL HISTORY: Hereditary hemochromatosis. COMPARISON: No relevant prior studies are available for comparison. TECHNIQUE: 2 views of each ankle and 3 views of each foot. FINDINGS: Right ankle and right foot: No acute fractures or malalignment. Mild joint space narrowing and subcortical sclerosis of the first metatarsophalangeal joint. No erosions or chondrocalcinosis. No significant soft tissue abnormality. Small dorsal calcaneal spur. Left ankle and left foot: No acute fractures or malalignment. Mild to moderate joint space narrowing and subcortical sclerosis of the first metatarsophalangeal joint. No erosions or chondrocalcinosis. No significant soft tissue abnormality. XR/XR ankle RT min 3V IMPRESSION: 1. No acute fractures or malalignment. 2. 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 3. No bony erosions or chondrocalcinosis. 4. No significant soft tissue abnormality.
--- NOTE | ~2023-01-04 | XR_ITS ---
X-ray bilateral hands CLINICAL HISTORY: Hereditary hemochromatosis. COMPARISON: X-ray left hand 01/16/2018. TECHNIQUE: 4 views of each hand. FINDINGS: No acute fractures or subluxation. Moderate joint space narrowing and subcortical sclerosis of the first carpometacarpal joints and triscaphe spaces bilaterally. Mild to moderate joint space narrowing and subcortical sclerosis of multiple interphalangeal joints as well as first through third metacarpophalangeal joints of each hand. No erosive changes or chondrocalcinosis. No abnormal soft tissue calcifications. No unexpected radiopaque foreign bodies. XR/XR hand wrist LT IMPRESSION: No acute fractures or subluxation. No erosions or abnormal soft tissue calcifications. Mild to moderate multifocal degenerative osteoarthritis in both hands.
--- NOTE | ~2023-01-04 | XR_ITS ---
X-RAY BILATERAL ANKLES X-RAY BILATERAL FEET CLINICAL HISTORY: Hereditary hemochromatosis. COMPARISON: No relevant prior studies are available for comparison. TECHNIQUE: 2 views of each ankle and 3 views of each foot. FINDINGS: Right ankle and right foot: No acute fractures or malalignment. Mild joint space narrowing and subcortical sclerosis of the first metatarsophalangeal joint. No erosions or chondrocalcinosis. No significant soft tissue abnormality. Small dorsal calcaneal spur. Left ankle and left foot: No acute fractures or malalignment. Mild to moderate joint space narrowing and subcortical sclerosis of the first metatarsophalangeal joint. No erosions or chondrocalcinosis. No significant soft tissue abnormality. XR/XR ankle LT min 3V IMPRESSION: 1. No acute fractures or malalignment. 2. 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 3. No bony erosions or chondrocalcinosis. 4. No significant soft tissue abnormality.
--- NOTE | ~2023-01-04 | XR_ITS ---
X-RAY BILATERAL ANKLES X-RAY BILATERAL FEET CLINICAL HISTORY: Hereditary hemochromatosis. COMPARISON: No relevant prior studies are available for comparison. TECHNIQUE: 2 views of each ankle and 3 views of each foot. FINDINGS: Right ankle and right foot: No acute fractures or malalignment. Mild joint space narrowing and subcortical sclerosis of the first metatarsophalangeal joint. No erosions or chondrocalcinosis. No significant soft tissue abnormality. Small dorsal calcaneal spur. Left ankle and left foot: No acute fractures or malalignment. Mild to moderate joint space narrowing and subcortical sclerosis of the first metatarsophalangeal joint. No erosions or chondrocalcinosis. No significant soft tissue abnormality. XR/XR foot RT min 3V IMPRESSION: 1. No acute fractures or malalignment. 2. 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 3. No bony erosions or chondrocalcinosis. 4. No significant soft tissue abnormality.
--- NOTE | ~2023-01-04 | XR_ITS ---
X-RAY BILATERAL ANKLES X-RAY BILATERAL FEET CLINICAL HISTORY: Hereditary hemochromatosis. COMPARISON: No relevant prior studies are available for comparison. TECHNIQUE: 2 views of each ankle and 3 views of each foot. FINDINGS: Right ankle and right foot: No acute fractures or malalignment. Mild joint space narrowing and subcortical sclerosis of the first metatarsophalangeal joint. No erosions or chondrocalcinosis. No significant soft tissue abnormality. Small dorsal calcaneal spur. Left ankle and left foot: No acute fractures or malalignment. Mild to moderate joint space narrowing and subcortical sclerosis of the first metatarsophalangeal joint. No erosions or chondrocalcinosis. No significant soft tissue abnormality. XR/XR foot LT min 3V IMPRESSION: 1. No acute fractures or malalignment. 2. 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 3. No bony erosions or chondrocalcinosis. 4. No significant soft tissue abnormality.
[2023-01-04 15:40] LABS: MANUAL DIFF FLAG NO
[2023-01-04 15:56] LABS: Basophils Absolute Auto 0.1 X10*3/uL (0.0-0.2); Basophils Percent Auto 0.7 % (0-2); Eosinophils Absolute Auto 0.1 X10*3/uL (0.0-0.4); Hematocrit 42.9 % (37.0-47.0); Hemoglobin 13.5 g/dl (12.0-16.0); Imm Gran Abs Auto 0.05 X10*3/uL (0.00-0.03); Imm Gran Pct Auto 0.7 % (0.0-0.4); Lymphocytes Absolute Auto 1.4 X10*3/uL (1.2-4.9); Lymphocytes Percent Auto 20.7 % (20-40); Mean Corpuscular HGB Conc 31.5 g/dl (31.0-35.0); Mean Corpuscular Volume 101.7 fL (80.0-98.0); Mean Platelet Volume 8.7 fL (9.4-12.3); Monocytes Absolute Auto 0.6 X10*3/uL (0.1-1.2); Monocytes Percent Auto 9.1 % (2-11); Neutrophils Absolute Auto 4.7 x10*3/uL (2.0-8.3); Neutrophils Percent Auto 67.8 % (45-73); Platelet Count 223 X10*3/uL (160-400); Red Blood Count 4.22 X10*6/uL (4.20-5.50); Red Cell Distribution Width 14.9 % (11.0-16.0)
[2023-01-04 16:52] LABS: Alanine Aminotransferase 28 U/L (0-31); Albumin Level 4.2 g/dL (3.5-5.0); Alkaline Phosphatase 57 U/L (39-117); Anion Gap 10 (12-20); Aspartate Amino Transferase 22 U/L (5-31); Bilirubin Total 0.7 mg/dL (0.0-1.0); Blood Urea Nitrogen 17 mg/dL (9-16); C Reactive Protein 0.15 mg/dL (< or = 0.50); Calcium 9.6 mg/dL (8.4-10.2); Carbon Dioxide 27 mmol/L (22-29); Chloride 106 mmol/L (96-108); Estimated Glomerular Filt Rate > 60; Glucose Random 97 mg/dL (60-115); Potassium 3.8 mmol/L (3.3-5.1); Sodium 139 mmol/L (135-145); Total Protein 6.7 g/dL (6.5-8.0)
[2023-01-04 17:00] LABS: Erythrocyte Sedimentation Rate 5 MM/HR (0-20); Rheumatoid Factor < 13.0 IU/mL (<15.0)
[2023-01-04 17:07] LABS: Ferritin 464 ng/mL (10-250)
[2023-01-09 13:58] LABS: Cyclic Citrullinated Peptide <16 UNITS
== END 2023-01-04 15:15 | disposition home or self-care (01) ==
LOC: HO.XRAY 15:14
PROVIDERS: Visit Provider Student in an Organized Health Care Education/Training Program
DX: M19.041 Primary osteoarthritis, right hand (principal); M19.042 Primary osteoarthritis, left hand; E83.110 Hereditary hemochromatosis; Z79.899 Other long term (current) drug therapy
CPT/HCPCS: 36415; 73110; 73130; 73610; 73630; 80053; 82728; 85025; 85652; 86140; 86200; 86431

== ENCOUNTER 2023-01-09 11:53 | Outpatient (REF) | payer OTHER, SELFPAY | END 2023-01-09 11:54 | disposition home or self-care (01) | LOC: HO.BBR 11:53 | PROVIDERS: PCP Nurse Practitioner; Visit Provider Internal Medicine Hematology & Oncology | DX: Z13.89 Encounter for screening for other disorder (principal) ==

== ENCOUNTER 2023-01-16 12:08 | Outpatient (REF) | payer OTHER, SELFPAY | END 2023-01-16 12:09 | disposition home or self-care (01) | LOC: HO.BBR 12:08 | PROVIDERS: PCP Nurse Practitioner; Visit Provider Internal Medicine Hematology & Oncology | DX: Z13.89 Encounter for screening for other disorder (principal) ==

== ENCOUNTER 2023-01-18 10:41 | Outpatient (AMB) | payer OTHER, SELFPAY ==
--- NOTE | 2023-01-18 10:45 | MHC.OFFVIS ---
Intake Vital Signs 01/18/23 10:51 Height 5 ft 6 in Weight 143 lb 8 oz BMI 23.2 BP 163/87 H Blood Pressure Location Rt brachial Position Sitting Pulse 87 Pulse Source Pulse Oximeter Pulse Oximetry (%) 96 Oxygen Delivery Method Room Air Intake Visit Reasons: s/p B/L Therapeutic SIJ 12/14/22 Intake Note: Pain today 12/24 [employer] Required: No Accompanied by: Self / Same As Patient Allergies sulfamethoxazole [From Bactrim] Allergy (Mild, Verified 01/18/23 10:51) Hives trimethoprim [From Bactrim] Allergy (Mild, Verified 01/18/23 10:51) Hives morphine Adverse Reaction (Severe, Verified 01/18/23 10:51) CAN NOT CONTROL BEHAVIOR HPI HPI Comments History of Present Illness Details Patient presents today to assess response to Bilateral Therapeutic Sacroiliac Joint Injections on 12/14/[address] Sosa. Patient reports 80% pain relief for one month. Her pain returned last week and she requests to book her to these injections after 03/16/23. Patient continues to endorse widespread body pain which interferes with her daily activities, functioning and sleep. She requests injections to be performed under sedation as before. Denies any recent cough, cold, infection, fever or other significant changes in medical history since last office visit. Patient denies any bladder or bowel incontinence or saddle anesthesia. PRIOR: Patient presents today to request a repeat of the sacroiliac joint injection. She requests me to perform bilateral sacroiliac joint injection. She complains on multiple widespread all body pain as well. She reports pain in the right shoulder, pain in bilateral hands, pain in bilateral lower extremities. She tried diclofenac however she cannot use diclofenac as much as she wants to because it effects children around her and her animals. I recommend her to were gloves when and after she applies diclofenac to herself. She tried meloxicam however meloxicam causes skin bruising on her. I recommend her to try vitamin P in combination with meloxicam it probably can help for her pain. And the past she reported 80% pain relief for 4 weeks after procedure with notable increase in her mobility, functioning, better sleep and better social interactions. Patient continues to endorse multiple joint pain especially in her both hands. She also presents with mild to moderate right sided SIJ pain and requests to repeat bilateral therapeutic SIJ injections with sedation. Her pain is localized in lower back extending to both upper buttocks and lateral hips with intermittent radiation of pain into her left groin. She will be scheduled for bilateral sacroiliac joint injection under sedation. She requests me to put her on opioid program here. I explained to her that due to staffing shortage we cannot put her on opioid program. I had explained to her that the longer she is staying on opioids chronically the worse her pain will become not better. I recommended her that her psychiatrist which prescribes her her antidepressant will attempt to switch her to amitriptyline or sertraline. She complains of cervicalgia I recommended her to get engaged with physical therapy. I will refer her for physical therapy. Past Procedure: 08/03/22: Left SIJ steroid injection-80% pain relief for 4 weeks 07/28/21: Bilateral L4-L5, L5-S1 facet therapeutic injections-0% pain relief PRIOR: Patient is a pleasant 66 years old female who has been previously seen in this office by Dr. Sosa. She presents today to assess response to bilateral facet joint therapeutic injections L4-L5 and L5-S1 on 07/28/21 under sedation. Patient reports previous injection on 07/28/21 provided her 0% pain relief. Prior to that, she had same injection on 04/27/2021 with 90% pain relief. Patient reports her mobility has decreased, with walking for any distance and standing over 10-15 minutes exacerbates her axial pain that goes across her lower back and her bilateral hip. We reviewed her MRI lumbar from 09/2020 that was significant for a large central disc osteophyte protrusion continues to compress the traversing S1 nerve roots within the subarticular zones bilaterally at L5-S1 level, and multifactorial degenerative changes result in stable moderate to severe bilateral foraminal stenosis with mass effect on the exiting L5 nerve roots bilaterally. Also, at L4-L5, a broad-based central disc protrusion continues to compress the traversing L5 nerve roots within the subarticular zones bilaterally. Patient competed physical therapy a year ago with very minimal improvements. Patient reports her neck pain has been most troublesome now that causes her significant headaches and muscle spasms. She reports history of anterior cervical fusion using titanium at C5-6 at [facility] over 20 years ago. She does not recall if she had any cervical injections since surgery. She has been regularly seen by Dr. Johnson and had cervical imaging completed at [facility]. She presents with painful cervical ROM, especially with extension, flexion, and right lateral bending. Patient denies any fever, abdominal or groin pain, numbness, tingling, dizziness, chest pain, weight changes, bladder/bowel dysfunction or saddle anesthesia. She reports intermittent weakness. [facility] Medical History COPD (chronic obstructive pulmonary disease) Depression Elevated cholesterol Hemochromatosis Hx of attention deficit disorder Hx of insomnia Other specified mononeuropathies Spondylosis of lumbar spine Surgical History H/O shoulder surgery History of surgery Hx of cervical spine surgery Family History Father Heart disease Mother Lung cancer Other Family history of osteoarthritis Social History Alcohol intake: current Alcohol intake frequency: does not drink Patient Tobacco Use Status: Former Tobacco user Quit Date: 2019 Tobacco use type: Cigarette Review of Systems Const All systems reviewed & are unremarkable except as noted in HPI and below ENT Reports Normal hearing present Neuro Reports Normal hearing present, Denies confusion and Denies Sensory deficit (Neuro) Psych Denies confusion Physical Exam Vital Signs: Last Vital Signs Pulse 87 01/18/23 10:51 BP 163/87 H 01/18/23 10:51 Pulse Ox 96 01/18/23 10:51 Oxygen Delivery Method Room Air 01/18/23 10:51 BMI result Body Mass Index 23.2 Const General: comfortable, no acute distress, well developed, alert and awake; No confusion Orientation/consciousness: No confusion Eyes Pupils: Equal, round and reactive pupils present EOM: EOMs intact bilaterally Chest Chest palpation & inspection: normal inspection of the chest Resp Effort & Inspection: normal respiratory effort, able to speak in complete sentences, normal respiratory pattern, no audible wheezes and no cough Cardio Jugular venous distension: no JVD Back/Spine/Pelvis Other: Lumbar flexion and extension is preserved but reproduce mild to moderate pain. Loading test is positive. Shantal's sign, Stanton's test and Stinchfield tests are positive bilaterally. Cervical Spine: cervical ROM normal, cervical muscular tenderness, pain with cervical ROM and No Cervical spine tenderness Thoracic/Lumbar Spine: pain with thoraco-lumbar ROM, paraspinal muscle tenderness, No thoracic spinal tenderness and lumbar spinal tenderness Sacroiliac joints: bilaterally tender to palpation Neuro General: No confusion Cranial nerves: Yes Equal, round and reactive pupils present and Yes Normal hearing present Sensory Exam: No Sensory deficit (Neuro) Psych Speech and movement: Normal speech and movement present Affect: normal affect Attitude: cooperative Assessment & Plan Assessment & Plan (1) Polyarthralgia: Code(s): M25.50 - Pain in unspecified joint (2) Bilateral hand pain: Code(s): M79.641 - Pain in right hand; M79.642 - Pain in left hand (3) Sacroiliitis: Code(s): M46.1 - Sacroiliitis, not elsewhere classified (4) Sacroiliac joint pain: Code(s): M53.3 - Sacrococcygeal disorders, not elsewhere classified (5) Spondylosis of lumbar spine: Code(s): M47.816 - Spondylosis without myelopathy or radiculopathy, lumbar region Plan Patient is status post bilateral SI therapeutic injection on 12/14/22 with 80% pain relief for 4-5 weeks. She is requesting today to repeat bilateral SIJ injections with steroids under sedation after 03/16/23. Patient will reach out to our office to confirm repeating Bilateral SIJ steroid injections with sedation in February. Continue diclofenac gel for multiple joint pain, especially bilateral hand pain. All questions and concerns have been answered and patient agreed with the plan. Follow up as needed. Coding Level of Care Code Est Pt Level 4 (75178) Diagnoses Polyarthralgia M25.50 Bilateral hand pain M79.641; M79.642 Sacroiliitis M46.1 Sacroiliac joint pain M53.3 Spondylosis of lumbar spine M47.816
[2023-01-18 10:51] VITALS: BP 163/87; PULSE 87; O2SAT 96; BMI 23.2
== END 2023-01-18 11:05 | disposition home or self-care (01) ==
PROVIDERS: PCP Nurse Practitioner; Visit Provider Nurse Practitioner Family
DX: M25.50 Pain in unspecified joint (principal); M79.641 Pain in right hand; M79.642 Pain in left hand; M46.1 Sacroiliitis, not elsewhere classified; M53.3 Sacrococcygeal disorders, not elsewhere classified; M47.816 Spondylosis without myelopathy or radiculopathy, lumbar region
CPT/HCPCS: 99214

== ENCOUNTER → 2023-01-18 10:41 | Outpatient (BNVA) | payer OTHER, SELFPAY | PROVIDERS: PCP Nurse Practitioner; Visit Provider Nurse Practitioner Family | DX: M25.50 Pain in unspecified joint (principal); M79.641 Pain in right hand; M79.642 Pain in left hand; M46.1 Sacroiliitis, not elsewhere classified; M53.3 Sacrococcygeal disorders, not elsewhere classified; M47.816 Spondylosis without myelopathy or radiculopathy, lumbar region | CPT/HCPCS: 99212 ==

== ENCOUNTER 2023-01-23 11:11 | Outpatient (REF) | payer OTHER, SELFPAY | END 2023-01-23 11:12 | disposition home or self-care (01) | LOC: HO.BBR 11:11 | PROVIDERS: Visit Provider Internal Medicine Hematology & Oncology | DX: Z13.89 Encounter for screening for other disorder (principal) ==

== ENCOUNTER 2023-02-06 11:13 | Outpatient (REF) | payer OTHER, SELFPAY | END 2023-02-06 11:14 | disposition home or self-care (01) | LOC: HO.BBR 11:13 | PROVIDERS: Visit Provider Internal Medicine Hematology & Oncology | DX: Z13.89 Encounter for screening for other disorder (principal) ==

== ENCOUNTER 2023-02-20 11:00 | Outpatient (RCR) | payer OTHER, SELFPAY | END 2023-03-20 10:24 | disposition home or self-care (01) | LOC: HO.OT 11:00 | PROVIDERS: PCP Nurse Practitioner; Visit Provider Student in an Organized Health Care Education/Training Program | DX: M19.041 Primary osteoarthritis, right hand (principal); M19.042 Primary osteoarthritis, left hand | CPT/HCPCS: 29125; 97035; 97110; 97140; 97166; 97760 ==

== ENCOUNTER 2023-02-20 12:58 | Outpatient (REF) | payer OTHER, SELFPAY | END 2023-02-20 12:59 | disposition home or self-care (01) | LOC: HO.BBR 12:58 | PROVIDERS: Visit Provider Internal Medicine Hematology & Oncology | DX: Z13.89 Encounter for screening for other disorder (principal) ==

== ENCOUNTER 2023-04-05 11:48 | Day surgery (SDC) | payer OTHER, SELFPAY ==
[2023-04-03 11:14] VITALS: BMI 23.1
--- NOTE | 2023-04-04 11:06 | P.CONAN_ITS ---
Documented by User: Charu Pepe NP 04/04/23 11:07 HPI - Anesthesia Eval Consult details Narrative: 68yo F for Bilateral Therapeutic Sacroiliac Joint Steroid Injection s/p same 11/2022 with TIVA Hemochromatosis - last therapeutic phleb 02/2023 PMFSH Active Problems Active Problems: All Active Problems (Updated 01/04/23 @ 15:03 by Zackary Lay MD) Osteoarthritis of hands, bilateral (Acute) Hereditary hemochromatosis (Acute) Polyarthralgia (Acute) Other specified mononeuropathies (Acute) Cervical spondylosis (Acute) Cervicalgia (Acute) Right shoulder pain (Acute) Right shoulder tendonitis (Acute) Osteoarthritis of right acromioclavicular joint (Acute) Osteoarthritis of right glenohumeral joint (Acute) Sacroiliitis (Acute) Sacroiliac joint pain (Acute) Hx of cervical spine surgery (Acute) Spondylosis of lumbar spine (Acute) Other specified mononeuropathies (Acute) Past Medical History Medical History COPD (chronic obstructive pulmonary disease) Depression Elevated cholesterol Hemochromatosis Hx of attention deficit disorder Hx of insomnia Other specified mononeuropathies Spondylosis of lumbar spine Family History Family History Father Heart disease Mother Lung cancer Other Family history of osteoarthritis Family history of problems with anesthesia: No Surgical History Surgical History H/O shoulder surgery History of surgery Hx of cervical spine surgery History of Problems with Anesthesia: No Social History Social History Alcohol intake: current Alcohol intake frequency: does not drink Patient Tobacco Use Status: Former Tobacco user Quit Date: 2019 Tobacco use type: Cigarette Advance Directives: No Advance Directives Information Provided: Yes Meds Allergies Allergy/AdvReac Type Severity Reaction Status Date / Time sulfamethoxazole Allergy Mild Hives Verified 01/18/23 10:51 [From Bactrim] trimethoprim [From Bactrim] Allergy Mild Hives Verified 01/18/23 10:51 morphine AdvReac Severe CAN NOT Verified 01/18/23 10:51 CONTROL BEHAVIOR Home Medications Medication Instructions Recorded Confirmed Last Taken Type albuterol sulfate 90 mcg/actuation 2 puff PO Q6H PRN wheezing 10/21/20 10/21/20 Unknown History aerosol inhaler aspirin 81 mg tablet,delayed 1 tab PO DAILY 10/21/20 10/21/20 10/20/20 21:00 Hi story release cholecalciferol (vitamin D3) 10 2 tab PO DAILY 10/21/20 10/21/20 Unknown History mcg (400 unit) tablet (Vitamin D3) dextroamphetamine-amphetamine 20 1 tab PO DAILY 10/21/20 10/21/20 Unknown History mg tablet dextroamphetamine-amphetamine 30 1 tab PO QAM 10/21/20 10/21/20 Unknown History mg tablet fluticasone propionate 50 2 spray intranasal DAILY 10/21/20 10/21/20 Unknown History mcg/actuation nasal spray,suspension omeprazole 20 mg capsule,delayed 1 cap PO DAILY 10/21/20 10/21/20 Unknown History release simvastatin 40 mg tablet 1 tab PO BEDTIME 10/21/20 10/21/20 Unknown History trazodone 100 mg tablet 3 tab PO BEDTIME 10/21/20 10/21/20 Unknown History umeclidinium 62.5 mcg-vilanterol 1 puff PO DAILY 10/21/20 10/21/20 Unknown History 25 mcg/actuation powdr for inhalation (Anoro Ellipta) clonazepam 1 mg tablet 1 mg PO BEDTIME PRN 09/28/21 Unknown History escitalopram oxalate 10 mg tablet 10 mg PO DAILY 07/13/22 Unknown History meloxicam 15 mg tablet 15 mg PO DAILY 07/13/22 Unknown History donepezil 10 mg tablet 10 mg PO DAILY 01/04/23 Unknown History nortriptyline 10 mg capsule 10 mg PO BEDTIME 01/04/23 Unknown History Exam Exam Date and Time: April 04, 2023 1106 Height,Weight and Vital Signs: Height 5 ft 6 in Weight 64.864 kg Assessment and Plan Assessment Anesthesia Assessment: Chart Reviewed Final Anesthetic Review Family History of Problems with Anesthesia: No History of Problems with Anesthesia: No Documented by User: Shaji Aly MD 04/05/23 12:44 [facility] Past Medical History Medical History COPD (chronic obstructive pulmonary disease) Depression Elevated cholesterol Hemochromatosis Hx of attention deficit disorder Hx of insomnia Other specified mononeuropathies Spondylosis of lumbar spine Family History Family History Father Heart disease Mother Lung cancer Other Family history of osteoarthritis Surgical History Surgical History H/O shoulder surgery History of surgery Hx of cervical spine surgery Social History Social History Alcohol intake: current Alcohol intake frequency: does not drink Patient Tobacco Use Status: Former Tobacco user Quit Date: 2019 Tobacco use type: Cigarette Advance Directives: No Advance Directives Information Provided: Yes Meds Allergies Allergy/AdvReac Type Severity Reaction Status Date / Time sulfamethoxazole Allergy Mild Hives Verified 01/18/23 10:51 [From Bactrim] trimethoprim [From Bactrim] Allergy Mild Hives Verified 01/18/23 10:51 morphine AdvReac Severe CAN NOT Verified 01/18/23 10:51 CONTROL BEHAVIOR Home Medications Medication Instructions Recorded Confirmed Last Taken Type albuterol sulfate 90 mcg/actuation 2 puff PO Q6H PRN wheezing 10/21/20 10/21/20 Unknown History aerosol inhaler aspirin 81 mg tablet,delayed 1 tab PO DAILY 10/21/20 10/21/20 10/20/20 21:00 History release cholecalciferol (vitamin D3) 10 2 tab PO DAILY 10/21/20 10/21/20 Unknown History mcg (400 unit) tablet (Vitamin D3) dextroamphetamine-amphetamine 20 1 tab PO DAILY 10/21/20 10/21/20 Unknown History mg tablet dextroamphetamine-amphetamine 30 1 tab PO QAM 10/21/20 10/21/20 Unknown History mg tablet fluticasone propionate 50 2 spray intranasal DAILY 10/21/20 10/21/20 Unknown History mcg/actuation nasal spray,suspension omeprazole 20 mg capsule,delayed 1 cap PO DAILY 10/21/20 10/21/20 Unknown History release simvastatin 40 mg tablet 1 tab PO BEDTIME 10/21/20 10/21/20 Unknown History trazodone 100 mg tablet 3 tab PO BEDTIME 10/21/20 10/21/20 Unknown History umeclidinium 62.5 mcg-vilanterol 1 puff PO DAILY 10/21/20 10/21/20 Unknown History 25 mcg/actuation powdr for inhalation (Anoro Ellipta) clonazepam 1 mg tablet 1 mg PO BEDTIME PRN 09/28/21 Unknown History escitalopram oxalate 10 mg tablet 10 mg PO DAILY 07/13/22 Unknown History meloxicam 15 mg tablet 15 mg PO DAILY 07/13/22 Unknown History donepezil 10 mg tablet 10 mg PO DAILY 01/04/23 Unknown History nortriptyline 10 mg capsule 10 mg PO BEDTIME 01/04/23 Unknown History Exam Airway Mallampati Class: II TM Dist: >3cm Neck ROM: Full Heart: rrr Lungs: cta Assessment and Plan Assessment Anesthesia Assessment: Anesthesia Plan Discussed Final Anesthetic Review NPO: Yes ASA Class: II Final Preanesthetic Review: No Changes in Pt Med Stat, Meds/Allgs Chart Reviewed, Consent Obtained/Reviewed and Anes Risks/Benef Reviewed Patient Risk: Intermediate Procedure Risk: Low Anesthetic Plan Anesthetic Plan: GA and Agree w/ Assess. and Plan Disposition: Standard PACU
--- NOTE | ~2023-04-05 | FL_ITS ---
EXAMINATION: XR FLUOROSCOPY WITH IMAGES CLINICAL INFORMATION: Bilateral SI joint injections. COMPARISON: None available. TECHNIQUE: Fluoroscopy Supervised By: Dr. Ivan Sosa. Fluoroscopy Time: 0.2 minutes. Cumulative Dose: 2.26 mGy. DAP: 0.618 Gycm2. Images: 2. FINDINGS: Images demonstrate needle placement and contrast injection over the bilateral sacroiliac joints FL/FL guidance in OR IMPRESSION: Fluoroscopy guidance for pain management procedure
[2023-04-05 12:40] VITALS: BP 117/80; PULSE 64; RESP 18; TEMP 36.8; O2SAT 98
[2023-04-05 13:01] VITALS: BP 117/80; PULSE 64; RESP 18; TEMP 36.8; O2SAT 98; BMI 22.6
[2023-04-05] MEDS: Lactated Ringers 1,000 ML 100 ML IVCONT (13:03)
--- NOTE | 2023-04-05 13:56 | MHC.SHP ---
Pre-Procedural Eval Section A Date of Service: 04/05/23 The patient is an INPATIENT: No Changes since office visit: Yes Patient answered all questions The History & Physical has been completed within 30 days and I have reviewed it.: No Section B Chief Complaint: Sacrococcygeal disorders,sacroiliitis, Details of Present Illness: as above Relevant Family History (Specify if Yes): No Relevant Social History: None Present Medications: see Short Stay Collaborative assessment Medical History: No relevant PMH History of Previous Operations: No relevant previous surgery Allergies: Allergies Allergy/AdvReac Type Severity Reaction Status Date / Time sulfamethoxazole Allergy Mild Hives Verified 01/18/23 10:51 [From Bactrim] trimethoprim [From Bactrim] Allergy Mild Hives Verified 01/18/23 10:51 morphine AdvReac Severe CAN NOT Verified 01/18/23 10:51 CONTROL BEHAVIOR Review of Systems Sugical H&P ROS: Negative: Constitution, Cardiovascular, Respiratory, Neurological, Psychiatric, Hem-Onc, Allergic/Immunologic, Gastrointestinal, Genitourinary, Integumentary, Endocrine and Eyes/Ears/Nose/Throat and Yes, Specify: Musculoskeletal (OA, sacroiliitis) Exam Surgical H&P Exam: Normal: HEENT, Normal: Heart, Normal: Lungs, Normal: Extremities, Normal: Abdomen, Normal: Skin and Normal: Neurological Plan Diagnosis/Plan: Unchanged I have reviewed the history and physical and performed a pertinent physical examination on my patient. No changes have occurred unless specified. Time Spent With Patient Time: Total time managing care of this patient today __5__ minutes.
--- NOTE | 2023-04-05 14:13 | P.OP_ITS ---
Operative Note Operative Note Date of Service: 04/05/23 Narrative: Bilateral therapeutic Sacroiliac joint injection ? Informed consent was explained thoroughly to the patient.? All questions about benefits and risks for the procedure were answered. ? Patient came to the operating room and was positioned prone on the operating table with the pillow under the pelvis.? ASA monitors applied and the patient was sedated ? The lower back and buttocks of the patient were prepped with ChloraPrep prepped and draped with sterile utility towels.? Sterilely draped C-arm was brought over the operating field and sq picture of patient's pelvis was demonstrated on the screen. ? ?For the right joint - tilting C-arm contralateral to the site of the joint the most posterior portion of the joints was superimposed with anterior silhouette of the joint.? Skin was injected in the projection of the joint slightly medial to the location of the joint with 25 gauge 1/2 inch needle using local lidocaine 2% . After that 22 gauge 3 and 1/2 inch needle was driven to the right-joint in tunne l vision fashion.? When needle entered the joint capsule injection of the contrast was performed demonstrating intra-articular and minimally periarticular spread of the contrast.? After that 4 cc. of ropivacaine 0.5% mixed with Kenalog 40 mg was injected into the joint.? Upon completion of the injections the needle was Withdrawn andrediserted at the left side toward the left SI joint and the procedure was performed on the left in the mirroring fashion. After completion of the procedure the needle was removed, ? sterile dressing was applied.? Upon completion of the injection patient was taken outside of the operating room to the recovery room where recovered uneventfully.
--- NOTE | 2023-04-05 14:41 | P.BOP_ITS ---
Brief Operative Note Date of Service: 04/05/23 Pre-op diagnosis: Sacroiliitis, bilateral sacroiliac joint pain Post-op diagnosis: same Procedure: bilateral sacroiliac joint therapeutic injection. Surgeon: Ivan Sosa MD Anesthesia: MAC Was an Property Analyst used for this Procedure?: No Estimated blood loss (mL): 2 Condition: stable Disposition: PACU
[2023-04-05 14:45] VITALS: BP 123/72; PULSE 71; RESP 18; TEMP 36.4; O2SAT 97
[2023-04-05 15:00] VITALS: BP 117/74; PULSE 65; RESP 16; TEMP 36.4; O2SAT 96
--- NOTE | 2023-04-05 15:54 | PC.NURSE ---
upon another attempt to have patient stand did maintain slight weakness with left leg call out to Dr. Sosa to pacu and upon arrival discussed potential risks and concerns with patient and daughter. Patient ambulated well with assistance and daughter discussed hher ability and williness to assist patient into first floor dwelling from vehicle and as per md.. Sosa any effects of local anesthetic will subside within 5 hours or so. Patient and daughter stated they felt comfortable with plan.
== END 2023-04-05 16:01 | disposition home or self-care (01) ==
PROVIDERS: PCP Nurse Practitioner; Visit Provider Anesthesiology
PROC: 3E0U33Z Introduction of Anti-inflammatory into Joints, Percutaneous Approach (ICD-10-PCS; CPT 27096; principal; 2023-04-05 13:50)
DX: M46.1 Sacroiliitis, not elsewhere classified (principal); M53.3 Sacrococcygeal disorders, not elsewhere classified; M47.816 Spondylosis without myelopathy or radiculopathy, lumbar region; J44.9 Chronic obstructive pulmonary disease, unspecified; G58.8 Other specified mononeuropathies; M79.641 Pain in right hand; M79.642 Pain in left hand; E83.119 Hemochromatosis, unspecified; Z88.2 Allergy status to sulfonamides; Z88.5 Allergy status to narcotic agent; Z98.890 Other specified postprocedural states; Z87.891 Personal history of nicotine dependence
CPT/HCPCS: G0260; J2250; J2795; J3010; J3301; Q9967

== ENCOUNTER → 2023-04-05 11:48 | Outpatient (BNV) | payer OTHER, SELFPAY | PROVIDERS: PCP Nurse Practitioner; Visit Provider Anesthesiology | DX: M53.3 Sacrococcygeal disorders, not elsewhere classified (principal); M46.1 Sacroiliitis, not elsewhere classified | CPT/HCPCS: 27096 ==

== ENCOUNTER 2023-05-06 09:48 | Outpatient (AMB) | payer OTHER, SELFPAY ==
--- NOTE | 2023-05-06 09:49 | A.OFFVIS_ITS ---
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 Sosa. Patient reports 0% pain relief since procedure with no improvement in her daily functioning, mobility, sleep and social activities. She reports increase in lower back pain that radiates to her bialteral lower extremities posteriorly with numbness and tingling just above her ankles and feet, left worse than right. She also reports back pain with radiation to her anterior left thigh, worse with walking, standing or bending. Patient reports she has been taking Ibuprofen and tizanidine with partial improvement in her symptom. Pain disturbs her sleep and today she woke up in pain at 0230 am and was not able to drive herself for this appointment as she is now very tired. Patient denies any bladder or bowel incontinence or saddle anesthesia. Past Procedure: 04/05/23: Bilateral Therapeutic SIJ inje ctions-0% pain relief 08/03/22: Left SIJ steroid injection-80% pain relief for 4 weeks 07/28/21: Bilateral L4-L5, L5-S1 facet t herapeutic injections-0% pain relief PRIOR: Patient presents today to request a repeat of the sacroiliac joint injection. She requests me to perform bilateral sacroiliac joint injection. She complains on multiple widespread all body pain as well. She reports pain in the right shoulder, pain in bilateral hands, pain in bilateral lower extremities. She tried diclofenac however she cannot use diclofenac as much as she wants to because it effects children around her and her animals. I recommend her to were gloves when and after she applies diclofenac to herself. She tried meloxicam however meloxicam causes skin bruising on her. I recommend her to try vitamin P in combination with meloxicam it probably can help for her pain. And the past she reported 80% pain relief for 4 weeks after procedure with notable increase in her mobility, functioning, better sleep and better social interactions. Patient continues to endorse multiple joint pain especially in her both hands. She also presents with mild to moderate right sided SIJ pain and requests to repeat bilateral therapeutic SIJ injections with sedation. Her pain is localized in lower back extending to both upper buttocks and lateral hips with intermittent radiation of pain into her left groin. She will be scheduled for bilateral sacroiliac joint injection under sedation. She requests me to put her on opioid program here. I explained to her that due to staffing shortage we cannot put her on opioid program. I had explained to her that the longer she is staying on opioids chronically the worse her pain will become not better. I recommended her that her psychiatrist which prescribes her her antidepressant will attempt to switch her to amitriptyline or sertraline. She complains of cervicalgia I recommended her to get engaged with physical therapy. I will refer her for physical therapy. Past Procedure: 08/03/22: Left SIJ steroid injection-80% pain relief for 4 weeks 07/28/21: Bilateral L4-L5, L5-S1 facet t herapeutic injections-0% pain relief PRIOR: Patient is a pleasant 66 years old female who has been previously seen in this office by Dr. Sosa. She presents today to assess response to bilateral facet joint therapeutic injections L4-L5 and L5-S1 on 07/28/21 under sedation. Patient reports previous injection on 07/28/21 provided her 0% pain relief. Prior to that, she had same injection on 04/27/2021 with 90% pain relief. Patient reports her mobility has decreased, with walking for any distance and standing over 10-15 minutes exacerbates her axial pain that goes across her lower back and her bilateral hip. We reviewed her MRI lumbar from 09/2020 that was significant for a large central disc osteophyte protrusion continues to compress the traversing S1 nerve roots within the subarticular zones bilaterally at L5-S1 level, and multifactorial degenerative changes result in stable moderate to severe bilateral foraminal stenosis with mass effect on the exiting L5 nerve roots bilaterally. Also, at L4-L5, a broad-based central disc protrusion continues to compress the traversing L5 nerve roots within the subarticular zones bilaterally. Patient competed physical therapy a year ago with very minimal improvements. Patient reports her neck pain has been most troublesome now that causes her significant headaches and muscle spasms. She reports history of anterior cervical fusion using titanium at C5-6 at [place] over 20 years ago. She does not recall if she had any cervical injections since surgery. She has been regularly seen by Dr. Johnson and had cervical imaging completed at [facility]. She presents with painful cervical ROM, especially with extension, flexion, and right lateral bending. Patient denies any fever, abdominal or groin pain, numbness, tingling, dizziness, chest pain, weight changes, bladder/bowel dysfunction or saddle anesthesia. She reports intermittent weakness. 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 Surgical History H/O shoulder surgery Hx of cervical spine surgery History of surgery Family History Father Heart disease Mother Lung cancer Other Family history of osteoarthritis Social History Alcohol intake: current Alcohol intake frequency: does not drink Patient Tobacco Use Status: Former Tobacco user Quit Date: 2019 Tobacco use type: Cigarette Review of Systems Const All systems reviewed & are unremarkable except as noted in HPI and below ENT Reports Normal hearing present Neuro Reports Normal hearing present and Denies confusion Psych Denies confusion Physical Exam Const General: cooperative, alert and awake; No confusion Orientation/consciousness: patient oriented x3 and No confusion Resp Effort & Inspection: able to speak in complete sentences, no audible wheezes and no cough Neuro General: patient oriented x3 and No confusion Cranial nerves: Yes Normal hearing present Cognition (Neuro): normal cognition Psych Mental Status: mental status grossly normal Speech and movement: Clear speech present Affect: normal affect Attitude: cooperative Thought process: Normal thought process present Thought content: Normal thought content present and No Depressive thoughts present Insight: Good insight present (Psych) Judgement: Good judgement present (Psych) Results Reviewed Results Reviewed: MR LUMBAR SPINE WITHOUT CONTRAST 10/10/20 CLINICAL INFORMATION: Spondylosis without myelopathy or radiculopathy. COMPARISON: Lumbar spine MRI 01/06/2018. FINDINGS: 5 nonrib-bearing lumbar-type vertebral bodies. Straightening of the lumbar lordosis. Grade 1 anterolisthesis of L3 on L4. There is no bone marrow edema. There are no acute fractures. Vertebral body heights are maintained. Moderate disc volume loss at L1-L2 and L5-S1. Multilevel endplate osteophytes. Chronic upper endplate height loss on the right side at L2. Conus terminates at the L1 level. No significant soft tissue findings. L1-L2: Diffuse annular disc bulge with a superimposed shallow central disc protrusion that mildly narrows the central canal, slightly progressed. No foraminal stenosis. L2-L3: Diffuse annular disc bulge with a superimposed far left lateral disc osteophyte protrusion. Severe left and mild right facet arthropathy. Mild narrowing of the central canal and mild bilateral foraminal encroachment. Findings unchanged. L3-L4: Grade 1 anterolisthesis. Severe bilateral facet arthropathy. Diffuse annular disc bulge the superimposed shallow left paracentral disc protrusion. Stable mild narrowing of the central canal. Mild bilateral foraminal encroachment. Findings unchanged. L4-L5: There is a diffuse annular disc bulge the superimposed broad-based central disc protrusion that continues to compress the traversing L5 nerve root within the subarticular zones bilaterally. Moderate bilateral facet arthropathy. No central canal stenosis. Mild bilateral foraminal encroachment. L5-S1: Large central disc osteophyte protrusion continues to compress the traversing S1 nerve roots within the subarticular zones bilaterally, similar to the previous study. Mild narrowing of the central canal. Disc osteophyte and facet arthropathy result in stable moderate to severe bilateral foraminal stenosis with mass effect on the exiting L5 nerve roots bilaterally. IMPRESSION: - At L5-S1, a large central disc osteophyte protrusion continues to compress the traversing S1 nerve roots within the subarticular zones bilaterally and multifactorial degenerative changes result in stable moderate to severe bilateral foraminal stenosis with mass effect on the exiting L5 nerve roots bilaterally. - At L4-L5, a broad-based central disc protrusion continues to compress the traversing L5 nerve roots within the subarticular zones bilaterally. -Stable grade 1 degenerative anterolisthesis of L3 on L4 in the setting of advanced bilateral facet arthropathy at this level. Additional stable spondylitic changes throughout the lumbar spine as described. Assessment & Plan Assessment & Plan (1) Spondylosis of lumbar spine: Code(s): M47.816 - Spondylosis without myelopathy or radiculopathy, lumbar region (2) Lumbar degenerative disc disease: Code(s): M51.36 - Other intervertebral disc degeneration, lumbar region (3) Lumbar radiculopathy: Code(s): M54.16 - Radiculopathy, lumbar region (4) Sacroiliac joint pain: Code(s): M53.3 - Sacrococcygeal disorders, not elsewhere classified Plan Patient is status post bilateral therapeutic SIJ injection with no pain relief. She reports worsening of her low back pain with bilateral radicular symptoms. We will proceed with MRI of the lumbar spine to assess for neural integrity and compression. She had no pain relief with previous facet injections. We discussed undergoing lumbar medial branch injections. Continue Ibuprofen and tizanidine prn. Patient will return to the clinic to discuss results of the MRI findings when it is done and consider interventional therapy vs neurosurgical evaluation as indicated. She does have previous history of cervical fusion with continued neck pain and polyarthralgia symptoms, which are worse with onset of cold weather. All questions and concerns have been answered and patient agreed with the plan. Follow up for MRI results and sooner as needed. I hereby testify that I spent 23 minutes in conversation with this patient as well as with planning and coordinating care for this patient and organizing this note. Orders: Orders XR lumbar spine 6V w bending Today M47.816 - Spondylosis without myelopathy or radiculopathy, lumbar region, M51.36 - Other intervertebral disc degeneration, lumbar region, M54.16 - Radiculopathy, lumbar region MR lumbar spine wo con Today M47.816 - Spondylosis without myelopathy or radiculopathy, lumbar region, M51.36 - Other intervertebral disc degeneration, lumbar region, M54.16 - Radiculopathy, lumbar region, Z98.890 - Other specified postprocedural states Medications: New ibuprofen Take it with food and full glass of water. 600 mg PO Q8H PRN 90 tabs 0RF pain M47.816 - Spondylosis without myelopathy or radiculopathy, lumbar region, M51.36 - Other intervertebral disc degeneration, lumbar region, M53.3 - Sacrococcygeal disorders, not elsewhere classified, M54.16 - Radiculopathy, lumbar region Changed From tizanidine 4 mg PO Q8H 90 days PRN 270 tabs 1RF for muscle spasm M47.812 - Spondylosis without myelopathy or radiculopathy, cervical region, M47.816 - Spondylosis without myelopathy or radiculopathy, lumbar region, M54.2 - Cervicalgia To tizanidine 4 mg PO Q8H 30 days PRN 90 tabs 1RF for muscle spasm M47.812 - Spondylosis without myelopathy or radiculopathy, cervical region, M47.816 - Spondylosis without myelopathy or radiculopathy, lumbar region, M54.2 - Cervicalgia Telehealth Telehealth Location of provider rendering services: practice address Location of patient: address on file Patient Identification confirmed using: Name, : Yes Telehealth method: voice only Patient verbally consented to treatment: Yes Patient verbally consented to billing insurance company: Yes Patient informed of any privacy concerns related to visit: Yes Minutes spent on Phone/Video with Pt.: 23 Coding Level of Care Code Tele Est Pt Level 4 (60745) Diagnoses Spondylosis of lumbar spine M47.816 Lumbar degenerative disc disease M51.36 Lumbar radiculopathy M54.16 Sacroiliac joint pain M53.3
[2023-05-06 09:51] VITALS: BMI 24.0
== END 2023-05-06 10:18 | disposition home or self-care (01) ==
LOC: HO.PMC 09:48
PROVIDERS: PCP Nurse Practitioner; Visit Provider Nurse Practitioner Family
DX: M47.816 Spondylosis without myelopathy or radiculopathy, lumbar region (principal); M51.36 Other intervertebral disc degeneration, lumbar region; M54.16 Radiculopathy, lumbar region; M53.3 Sacrococcygeal disorders, not elsewhere classified
CPT/HCPCS: 99443

== ENCOUNTER → 2023-05-06 09:48 | Outpatient (BNVA) | payer OTHER, SELFPAY | PROVIDERS: PCP Nurse Practitioner; Visit Provider Nurse Practitioner Family ==

== ENCOUNTER 2023-05-07 13:02 | Outpatient (REF) | payer OTHER, SELFPAY | END 2023-05-07 13:03 | disposition home or self-care (01) | LOC: HO.BBR 13:02 | PROVIDERS: Visit Provider Internal Medicine Hematology | DX: Z13.89 Encounter for screening for other disorder (principal) ==

== ENCOUNTER 2023-05-21 16:49 | Outpatient (REF) | payer OTHER, SELFPAY ==
--- NOTE | ~2023-05-21 | MR_ITS ---
EXAMINATION: MR LUMBAR SPINE WITHOUT CONTRAST CLINICAL INFORMATION: Lumbar radiculopathy COMPARISON: MRI lumbar spine 10/10/2020 TECHNIQUE: MRI of the lumbar spine was obtained using routine sequences without contrast. FINDINGS: Lumbar straightening. Trace anterolisthesis of L3 on L4. No suspicious marrow signal or focal osseous lesion. Right-sided endplate marrow edema at L4-L5. The vertebral body heights are maintained. Multilevel disc dessication and height loss. The conus medullaris terminates at the level of L1-L2. The distal spinal cord is normal in appearance. The cauda equina nerve roots appear normal. No significant abnormalities of the paraspinal musculature. Limited evaluation of the intra-abdominal structures without significant abnormalities. The abdominal aorta is of normal contour and caliber. SPINAL LEVELS: L1-L2: Shallow left eccentric disc bulge and mild facet arthropathy. No significant spinal canal stenosis. Stable mild left neural foraminal narrowing. L2-L3: Left greater than right facet arthropathy, left eccentric disc bulge. Stable mild bilateral neural foraminal narrowing, left greater than right. No significant central spinal canal stenosis. L3-L4: Anterolisthesis with posterior disc uncovering, severe facet arthropathy. Small left central disc protrusion. No significant spinal canal or neural foraminal narrowing. L4-L5: Right eccentric disc osteophyte complex. Facet arthropathy. No significant central spinal canal stenosis. Stable subarticular zone narrowing with likely mass effect on the traversing L5 nerve roots. Stable mild bilateral neural foraminal narrowing, record midline shift. L5-S1: Left greater than right facet arthropathy. Disc osteophyte complex with large central disc protrusion. Stable narrowing of the subarticular zones with mass effect on the traversing left greater than right S1 nerve roots. No significant central spinal canal stenosis. Stable moderate to severe bilateral neural foraminal narrowing with impingement of the exiting L5 nerve roots. MR/MR lumbar spine wo con IMPRESSION: 1. Multilevel lumbar spondylosis as described above has not significantly progressed compared to MRI from 10/10/2020. There is no significant central spinal canal stenosis. 2. At L4-L5 and L5-S1, there is stable subarticular zone narrowing with mass effect on the traversing L5 and S1 nerve roots as well as moderate to severe bilateral neural foraminal narrowing at L5-S1 with impingement of the exiting L5 nerve roots.
== END 2023-05-21 16:50 | disposition home or self-care (01) ==
LOC: HO.MRI 16:49
PROVIDERS: PCP Nurse Practitioner; Visit Provider Nurse Practitioner Family
DX: M54.16 Radiculopathy, lumbar region (principal); M51.36 Other intervertebral disc degeneration, lumbar region; M47.816 Spondylosis without myelopathy or radiculopathy, lumbar region; Z98.890 Other specified postprocedural states
CPT/HCPCS: 72148

== ENCOUNTER 2023-06-07 10:34 | Outpatient (AMB) | payer OTHER, SELFPAY ==
--- NOTE | 2023-06-07 10:32 | A.OFFVIS_ITS ---
Intake Vital Signs 06/07/23 10:33 Height 5 ft 6 in Weight 145 lb BMI 23.4 Intake Visit Reasons: MRI results/injection discussion/confirmed Allergies sulfamethoxazole [From Bactrim] Allergy (Mild, Verified 06/07/23 10:32) Hives trimethoprim [From Bactrim] Allergy (Mild, Verified 06/07/23 10:32) Hives morphine Adverse Reaction (Severe, Verified 06/07/23 10:32) CAN NOT CONTROL BEHAVIOR HPI HPI Comments History of Present Illness Details Patient presents today via telehealth encounter to discuss recent lumbar spine MRI results. Patient denies any recent trauma, injury or falls. However, she reports significant low back pain with radiation into her hip and groin and into lateral and anterior lower extremities with associated weakness, numbness and tingling. Reports left leg giving out frequently. Pain is worse with walking, weight bearing, changing positions, prolonged standing or bending. Lumbar spine MRI results discussed with patient today and are noted below. Will proceed with obtaining hip imaging. Ibuprofen and muscle relaxant has provided very little benefit. Patient denies any bladder or bowel incontinence or saddle anesthesia. Past Procedure: 04/05/23: Bilateral Therapeutic SIJ inje ctions-0% pain relief 08/03/22: Left SIJ steroid injection-80% pain relief for 4 weeks 07/28/21: Bilateral L4-L5, L5-S1 facet t herapeutic injections-0% pain relief PRIOR: Patient presents today to request a repeat of the sacroiliac joint injection. She requests me to perform bilateral sacroiliac joint injection. She complains on multiple widespread all body pain as well. She reports pain in the right shoulder, pain in bilateral hands, pain in bilateral lower extremities. She tried diclofenac however she cannot use diclofenac as much as she wants to because it effects children around her and her animals. I recommend her to were gloves when and after she applies diclofenac to herself. She tried meloxicam however meloxicam causes skin bruising on her. I recommend her to try vitamin P in combination with meloxicam it probably can help for her pain. And the past she reported 80% pain relief for 4 weeks after procedure with notable increase in her mobility, functioning, better sleep and better social interactions. Patient continues to endorse multiple joint pain especially in her both hands. She also presents with mild to moderate right sided SIJ pain and requests to repeat bilateral therapeutic SIJ injections with sedation. Her pain is localized in lower back extending to both upper buttocks and lateral hips with intermittent radiation of pain into her left groin. She will be scheduled for bilateral sacroiliac joint injection under sedation. She requests me to put her on opioid program here. I explained to her that due to staffing shortage we cannot put her on opioid program. I had explained to her that the longer she is staying on opioids chronically the worse her pain will become not better. I recommended her that her psychiatrist which prescr ibes her her antidepressant will attempt to switch her to amitriptyline or sertraline. She complains of cervicalgia I recommended her to get engaged with physical therapy. I will refer her for physical therapy. Past Procedure: 08/03/22: Left SIJ steroid injection-80% pain relief for 4 weeks 07/28/21: Bilateral L4-L5, L5-S1 facet t herapeutic injections-0% pain relief PRIOR: Patient is a pleasant 66 years old female who has been previously seen in this office by Dr. Sosa. She presents today to assess response to bilateral facet joint therapeutic injections L4-L5 and L5-S1 on 07/28/21 under sedation. Patient reports previous injection on 07/28/21 provided her 0% pain relief. Prior to that, she had same injection on 04/27/2021 with 90% pain relief. Patient reports her mobility has decreased, with walking for any distance and standing over 10-15 minutes exacerbates her axial pain that goes across her lower back and her bilateral hip. We reviewed her MRI lumbar from 09/2020 that was significant for a large central disc osteophyte protrusion continues to compress the traversing S1 nerve roots within the subarticular zones bilaterally at L5-S1 level, and multifactorial degenerative changes result in stable moderate to severe bilateral foraminal stenosis with mass effect on the exiting L5 nerve roots bilaterally. Also, at L4-L5, a broad-based central disc protrusion continues to compress the traversing L5 nerve roots within the subarticular zones bilaterally. Patient competed physical therapy a year ago with very minimal improvements. Patient reports her neck pain has been most troublesome now that causes her significant headaches and muscle spasms. She reports history of anterior cervical fusion using titanium at C5-6 at [facility] over 20 years ago. She does not recall if she had any cervical injections since surgery. She has been regularly seen by Dr. Johnson and had cervical imaging completed at [facility]. She presents with painful cervical ROM, especially with extension, flexion, and right lateral bending. Patient denies any fever, abdominal or groin pain, numbness, tingling, dizziness, chest pain, weight changes, bladder/bowel dysfu nction or saddle anesthesia. She reports intermittent weakness. 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 Surgical History H/O shoulder surgery Hx of cervical spine surgery History of surgery Family History Father Heart disease Mother Lung cancer Other Family history of osteoarthritis Social History Alcohol intake: current Alcohol intake frequency: does not drink Comment: chronic Patient Tobacco Use Status: Former Tobacco user Quit Date: 2019 Tobacco use type: Cigarette Review of Systems Const All systems reviewed & are unremarkable except as noted in HPI and below ENT Reports Normal hearing present Neuro Reports Normal hearing present and Denies confusion Psych Denies confusion Physical Exam Vital Signs: BMI result Body Mass Index 23.4 Const General: cooperative, alert and awake; No confusion Orientation/consciousness: patient oriented x3 and No confusion Resp Effort & Inspection: able to speak in complete sentences, no audible wheezes and no cough Neuro General: patient oriented x3 and No confusion Cranial nerves: Yes Normal hearing present Cognition (Neuro): normal cognition Psych Mental Status: mental status grossly normal Speech and movement: Clear speech present Affect: normal affect Attitude: cooperative Thought process: Normal thought process present Thought content: Normal thought content present and Depressive thoughts present Insight: Good insight present (Psych) Judgement: Good judgement present (Psych) Results Reviewed Results Reviewed: MR LUMBAR SPINE WITHOUT CONTRAST 05/21/23 CLINICAL INFORMATION: Lumbar radiculopathy COMPARISON: MRI lumbar spine 10/10/2020 TECHNIQUE: MRI of the lumbar spine was obtained using routine sequences without contrast. FINDINGS: Lumbar straightening. Trace anterolisthesis of L3 on L4. No suspicious marrow signal or focal osseous lesion. Right-sided endplate marrow edema at L4-L5. The vertebral body heights are maintained. Multilevel disc dessication and height loss. The conus medullaris terminates at the level of L1-L2. The distal spinal cord is normal in appearance. The cauda equina nerve roots appear normal. No significant abnormalities of the paraspinal musculature. Limited evaluation of the intra-abdominal structures without significant abnormalities. The abdominal aorta is of normal contour and caliber. SPINAL LEVELS: L1-L2: Shallow left eccentric disc bulge and mild facet arthropathy. No significant spinal canal stenosis. Stable mild left neural foraminal narrowing. L2-L3: Left greater than right facet arthropathy, left eccentric disc bulge. Stable mild bilateral neural foraminal narrowing, left greater than right. No significant central spinal canal stenosis. L3-L4: Anterolisthesis with posterior disc uncovering, severe facet arthropathy. Small left central disc protrusion. No significant spinal canal or neural foraminal narrowing. L4-L5: Right eccentric disc osteophyte complex. Facet arthropathy. No significant central spinal canal stenosis. Stable subarticular zone narrowing with likely mass effect on the traversing L5 nerve roots. Stable mild bilateral neural foraminal narrowing, record midline shift. L5-S1: Left greater than right facet arthropathy. Disc osteophyte complex with large central disc protrusion. Stable narrowing of the subarticular zones with mass effect on the traversing left greater than right S1 nerve roots. No significant central spinal canal stenosis. Stable moderate to severe bilateral neural foraminal narrowing with impingement of the exiting L5 nerve roots. IMPRESSION: 1. Multilevel lumbar spondylosis as described above has not significantly progressed compared to MRI from 10/10/2020. There is no significant central spinal canal stenosis. 2. At L4-L5 and L5-S1, there is stable subarticular zone narrowing with mass effect on the traversing L5 and S1 nerve roots as well as moderate to severe bilateral neural foraminal narrowing at L5-S1 with impingement of the exiting L5 nerve roots. Assessment & Plan Assessment & Plan (1) Bilateral hip pain: Code(s): M25.551 - Pain in right hip; M25.552 - Pain in left hip (2) Lumbar degenerative disc disease: Code(s): M51.36 - Other intervertebral disc degeneration, lumbar region (3) Spondylosis of lumbar spine: Code(s): M47.816 - Spondylosis without myelopathy or radiculopathy, lumbar region (4) Lumbar radiculopathy: Code(s): M54.16 - Radiculopathy, lumbar region (5) Sacroiliac joint pain: Code(s): M53.3 - Sacrococcygeal disorders, not elsewhere classified Plan Lumbar spine MRI results were discussed with patient today. Tentatively will plan for Bilateral L5-S1 TFESI with local and fluoroscopy for radicular back pain symptoms. Expectations, risks and benefits were reviewed. Bilateral hip with pelvic view imaging to assess degree of arthritis and degenerative changes. Discussed intra-articular hip steroid injections with fluoroscopy. Patient will stop Ibuprofen and trial diclofenac potassium for moderate to severe pain symptoms. Side effects and precautions reviewed. Patient is aware to take medication with food and full glass of water. Discussed short script of opioid, like oxycodone or tramadol. Patient prefers to stay off opioid as she has experienced significant aggravation and out of control behavior with morphine and oxycodone in the past. All questions and concerns have been answered and patient agreed with the plan. Follow up for hip xray results and sooner as needed. I hereby testify that I spent 21 minutes in conversation with this patient as well as with planning and coordinating care for this patient and organizing this note. Orders: Orders XR hip BI w PEL1V Today M25.551 - Pain in right hip, M25.552 - Pain in left hip Medications: New diclofenac potassium Take with food and full glass of water. 50 mg PO BID 30 days PRN 60 tabs 1RF pain M25.551 - Pain in right hip, M25.552 - Pain in left hip, M51.36 - Other intervertebral disc degeneration, lumbar region Telehealth Telehealth Location of provider rendering services: practice address Location of patient: address on file Patient Identification confirmed using: Name, : Yes Telehealth method: voice only Patient verbally consented to treatment: Yes Patient verbally consented to billing insurance company: Yes Patient informed of any privacy concerns related to visit: Yes Minutes spent on Phone/Video with Pt.: 21 Coding Level of Care Code Tele Est Pt Level 4 (00531) Diagnoses Bilateral hip pain M25.551; M25.552 Lumbar degenerative disc disease M51.36 Spondylosis of lumbar spine M47.816 Lumbar radiculopathy M54.16 Sacroiliac joint pain M53.3
[2023-06-07 10:33] VITALS: BMI 23.4
== END 2023-06-07 10:48 | disposition home or self-care (01) ==
LOC: HO.PMC 10:34
PROVIDERS: PCP Nurse Practitioner; Visit Provider Nurse Practitioner Family
DX: M25.551 Pain in right hip (principal); M25.552 Pain in left hip; M51.36 Other intervertebral disc degeneration, lumbar region; M47.816 Spondylosis without myelopathy or radiculopathy, lumbar region; M54.16 Radiculopathy, lumbar region; M53.3 Sacrococcygeal disorders, not elsewhere classified
CPT/HCPCS: 99441

== ENCOUNTER 2023-06-07 10:34 | Outpatient (REF) | payer OTHER, SELFPAY | END 2023-06-07 10:35 | disposition home or self-care (01) | LOC: HO.XRAY 10:34 | PROVIDERS: PCP Nurse Practitioner; Visit Provider Nurse Practitioner Family | DX: M25.551 Pain in right hip (principal); M25.552 Pain in left hip; M47.26 Other spondylosis with radiculopathy, lumbar region; M51.36 Other intervertebral disc degeneration, lumbar region; M46.1 Sacroiliitis, not elsewhere classified; M53.3 Sacrococcygeal disorders, not elsewhere classified | CPT/HCPCS: 72114; 72202; 73521 ==

== ENCOUNTER 2023-07-15 15:08 | Outpatient (REF) | payer OTHER, SELFPAY | END 2023-07-15 15:09 | disposition home or self-care (01) | LOC: HO.BBR 15:08 | PROVIDERS: PCP Nurse Practitioner; Visit Provider Internal Medicine Hematology | DX: Z13.89 Encounter for screening for other disorder (principal) ==

== ENCOUNTER 2023-07-23 06:09 | Outpatient (REF) | payer OTHER, SELFPAY ==
--- NOTE | ~2023-07-23 | FL_ITS ---
EXAMINATION: XR FLUOROSCOPY WITH IMAGES CLINICAL INFORMATION: Radiculopathy, lumbar region COMPARISON: None available. TECHNIQUE: Fluoroscopy Supervised By: Dr. Sosa Fluoroscopy Time: 0.7 minutes. Cumulative Dose: 8.19 mGy. DAP: 0.118 mG/m2. Images: 2. FINDINGS: The first fluoroscopic image demonstrates a needle with the tip positioned just above the left lateral inferior endplate of L5. The second fluoroscopic image demonstrates a needle tip positioned over the right lateral body of L5. Contrast is noted right lateral to the L5 vertebral body. FL/FL guidance in treatment room IMPRESSION: Intraoperative fluoroscopic guidance provided, as described above.
== END 2023-07-23 06:10 | disposition home or self-care (01) ==
LOC: CF 06:09
PROVIDERS: Visit Provider Anesthesiology
DX: M54.16 Radiculopathy, lumbar region (principal); M47.816 Spondylosis without myelopathy or radiculopathy, lumbar region; M53.3 Sacrococcygeal disorders, not elsewhere classified; M51.36 Other intervertebral disc degeneration, lumbar region; M25.551 Pain in right hip; M25.552 Pain in left hip
CPT/HCPCS: 64483; J3301; Q9967

== ENCOUNTER 2023-07-23 08:44 | Outpatient (AMB) | payer OTHER, SELFPAY ==
[2023-07-23 08:49] VITALS: BP 142/83; PULSE 84; RESP 14; O2SAT 98; BMI 23.4
--- NOTE | 2023-07-23 08:49 | MHC.OFFVIS ---
Intake Vital Signs 07/23/23 08:49 07/23/23 10:29 Height 5 ft 6 in 5 ft 6 in Weight 145 lb 145 lb BMI 23.4 23.4 BP 142/83 H 122/82 Blood Pressure Location Lt brachial Lt brachial Position Sitting Sitting Respiration 14 14 Pulse 84 77 Pulse Source Pulse Oximeter Pulse Oximeter Pulse Oximetry (%) 98 98 Oxygen Delivery Method Room Air Room Air Comment pre-op post-op Intake Visit Reasons: Louis L5-S1 TFESI Allergies sulfamethoxazole [From Bactrim] Allergy (Mild, Verified 07/23/23 08:49) Hives trimethoprim [From Bactrim] Allergy (Mild, Verified 07/23/23 08:49) Hives morphine Adverse Reaction (Severe, Verified 07/23/23 08:49) CAN NOT CONTROL BEHAVIOR PFSH Medical History Hemochromatosis Elevated cholesterol Hx of attention deficit disorder COPD (chronic obstructive pulmonary disease) Hx of insomnia Depression 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 Surgical History H/O shoulder surgery Hx of cervical spine surgery History of surgery Family History Father Heart disease Mother Lung cancer Other Family history of osteoarthritis Social History Alcohol intake: current Alcohol intake frequency: does not drink Comment: chronic Patient Tobacco Use Status: Former Tobacco user Quit Date: 2019 Tobacco use type: Cigarette Physical Exam Vital Signs: Last Vital Signs Pulse 77 07/23/23 10:29 Resp 14 07/23/23 10:29 BP 122/82 07/23/23 10:29 Pulse Ox 98 07/23/23 10:29 Oxygen Delivery Method Room Air 07/23/23 10:29 BMI result Body Mass Index 23.4 Assessment & Plan Assessment & Plan (1) Bilateral hip pain: Code(s): M25.551 - Pain in right hip; M25.552 - Pain in left hip (2) Lumbar degenerative disc disease: Code(s): M51.36 - Other intervertebral disc degeneration, lumbar region (3) Spondylosis of lumbar spine: Code(s): M47.816 - Spondylosis without myelopathy or radiculopathy, lumbar region (4) Lumbar radiculopathy: Code(s): M54.16 - Radiculopathy, lumbar region (5) Sacroiliac joint pain: Code(s): M53.3 - Sacrococcygeal disorders, not elsewhere classified Plan: Transforaminal epidural steroid injection Informed consent was thoroughly explained to the patient before the procedure.? The patient came to the operating room.? He was positioned prone on operating table with a pillow under his abdomen.? Time-out was performed delineating correct site and side of the procedure, nature of the injection, name and date of of the patient. The lower back of the patient was prepped with ChloraPrep and draped with sterile utility towels.? C-arm was brought over the operating field and sq picture of L5 vertebra were demonstrated on the screen.? The right side was chosen as the side of the injection.? Tilting machine ipsilateral to the right at the level of L5 1st the most prominent picture of the right pedicle was obtained on the screen.? 3 mm below the level of the lowest point of the pedicle projection to the skin small amount of lidocaine 1% 3-4 cc was injected to anesthetize the skin.? After that 5 in 22 gauge Quincke point needle was inserted through the skin wheal and was advanced to were the L5-S1 foramina on anterior posterior , lateral and oblique views intermittently.? When tip of the needle entered foramina projection on AP view injection of the contrast was performed demonstrating epidural and perineural spread of the contrast.? After that injection of the treatment medicine 4 cc of lidocaine 1% mixed with Kenalog 40 mg was injected into the foramina.? Injection of the contrast and injection of the treatment medicine was observed live on the screen.? No intrathecal and no intravascular spread of the contrast was noted. After that the procedure was performed on L5-S1 level on the left in mirror ring fashion Upon completion of the procedure sterile Band-Aids were applied. Patient tolerated procedure well he was taken outside of the operating room where he recovered uneventfully.? She went home without immediate complications. Plan Lumbar spine MRI results were discussed with patient today. Tentatively will plan for Bilateral L5-S1 TFESI with local and fluoroscopy for radicular back pain symptoms. Expectations, risks and benefits were reviewed. Bilateral hip with pelvic view imaging to assess degree of arthritis and degenerative changes. Discussed intra-articular hip steroid injections with fluoroscopy. Patient will stop Ibuprofen and trial diclofenac potassium for moderate to severe pain symptoms. Side effects and precautions reviewed. Patient is aware to take medication with food and full glass of water. Discussed short script of opioid, like oxycodone or tramadol. Patient prefers to stay off opioid as she has experienced significant aggravation and out of control behavior with morphine and oxycodone in the past. All questions and concerns have been answered and patient agreed with the plan. Follow up for hip xray results and sooner as needed. I hereby testify that I spent 21 minutes in conversation with this patient as well as with planning and coordinating care for this patient and organizing this note. Orders: Orders FL guidance in treatment room Today M54.16 - Radiculopathy, lumbar region Coding Level of Care Code Procedure Only Diagnoses Bilateral hip pain M25.551; M25.552 Lumbar degenerative disc disease M51.36 Spondylosis of lumbar spine M47.816 Lumbar radiculopathy M54.16 Sacroiliac joint pain M53.3
[2023-07-23 10:29] VITALS: BP 122/82; PULSE 77; RESP 14; O2SAT 98; BMI 23.4
== END 2023-07-23 09:43 | disposition home or self-care (01) ==
LOC: HO.PMCPRC 08:44
PROVIDERS: PCP Nurse Practitioner; Visit Provider Anesthesiology
DX: M25.551 Pain in right hip (principal); M25.552 Pain in left hip; M51.36 Other intervertebral disc degeneration, lumbar region; M47.816 Spondylosis without myelopathy or radiculopathy, lumbar region; M54.16 Radiculopathy, lumbar region; M53.3 Sacrococcygeal disorders, not elsewhere classified
CPT/HCPCS: 64483

== ENCOUNTER 2023-08-14 11:02 | Outpatient (REF) | payer OTHER, SELFPAY | END 2023-08-14 11:03 | disposition home or self-care (01) | LOC: HO.BBR 11:02 | PROVIDERS: PCP Nurse Practitioner; Visit Provider Nurse Practitioner Adult Health | DX: Z13.89 Encounter for screening for other disorder (principal) ==

== ENCOUNTER 2023-08-22 10:23 | Outpatient (AMB) | payer OTHER, SELFPAY ==
--- NOTE | 2023-08-22 10:19 | MHC.OFFVIS ---
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 Sosa. Patient reports 100% ongoing pain relief for right side and 40-50% for left side with partial improvement in her daily functioning and mobility. Patient continues to endorse significant low back pain with radiation into her left buttock and into lateral and anterior lower extremities with associated weakness, numbness and tingling. Reports left leg giving out frequently. Pain is worse with walking, weight bearing, changing positions, prolonged standing or bending. Lumbar spine MRI results discussed with patient today and are noted below. Patient denies any bladder or bowel incontinence or saddle anesthesia. Patient requests referral to Neurosurgery for left sided radicular symptoms with minimal relief from recent injection. Patient reports chronic right shoulder pain radiating to her neck and right hand. She was seen by Orthopedics in 2021 and completed right shoulder MRI but reports no follow up for this. She requests referral to Dr. Dhillon for right shoulder pain. Past Procedure: 07/23/23: Bilateral L5-S1 TFESI-100% pain relief for right side, 40-50% pain relief for left side 04/05/23: Bilateral Therapeutic SIJ injections-0% pain relief 08/03/22: Left SIJ steroid injection-80% pain relief for 4 weeks 07/28/21: Bilateral L4-L5, L5-S1 facet therapeutic injections-0% pain relief PRIOR: Patient presents today to request a repeat of the sacroiliac joint injection. She requests me to perform bilateral sacroiliac joint injection. She complains on multiple widespread all body pain as well. She reports pain in the right shoulder, pain in bilateral hands, pain in bilateral lower extremities. She tried diclofenac however she cannot use diclofenac as much as she wants to because it effects children around her and her animals. I recommend her to were gloves when and after she applies diclofenac to herself. She tried meloxicam however meloxicam causes skin bruising on her. I recommend her to try vitamin P in combination with meloxicam it probably can help for her pain. And the past she reported 80% pain relief for 4 weeks after procedure with notable increase in her mobility, functioning, better sleep and better social interactions. Patient continues to endorse multiple joint pain especially in her both hands. She also presents with mild to moderate right sided SIJ pain and requests to repeat bilateral therapeutic SIJ injections with sedation. Her pain is localized in lower back extending to both upper buttocks and lateral hips with intermittent radiation of pain into her left groin. She will be scheduled for bilateral sacroiliac joint injection under sedation. She requests me to put her on opioid program here. I explained to her that due to staffing shortage we cannot put her on opioid program. I had explained to her that the longer she is staying on opioids chronically the worse her pain will become not better. I recommended her that her psychiatrist which prescribes her her antidepressant will attempt to switch her to amitriptyline or sertraline. She complains of cervicalgia I recommended her to get engaged with physical therapy. I will refer her for physical therapy. Past Procedure: 08/03/22: Left SIJ steroid injection-80% pain relief for 4 weeks 07/28/21: Bilateral L4-L5, L5-S1 facet therapeutic injections-0% pain relief PRIOR: Patient is a pleasant 66 years old female who has been previously seen in this office by Dr. Sosa. She presents today to assess response to bilateral facet joint therapeutic injections L4-L5 and L5-S1 on 07/28/21 under sedation. Patient reports previous injection on 07/28/21 provided her 0% pain relief. Prior to that, she had same injection on 04/27/2021 with 90% pain relief. Patient reports her mobility has decreased, with walking for any distance and standing over 10-15 minutes exacerbates her axial pain that goes across her lower back and her bilateral hip. We reviewed her MRI lumbar from 09/2020 that was significant for a large central disc osteophyte protrusion continues to compress the traversing S1 nerve roots within the subarticular zones bilaterally at L5-S1 level, and multifactorial degenerative changes result in stable moderate to severe bilateral foraminal stenosis with mass effect on the exiting L5 nerve roots bilaterally. Also, at L4-L5, a broad-based central disc protrusion continues to compress the traversing L5 nerve roots within the subarticular zones bilaterally. Patient competed physical therapy a year ago with very minimal improvements. Patient reports her neck pain has been most troublesome now that causes her significant headaches and muscle spasms. She reports history of anterior cervical fusion using titanium at C5-6 at [facility] over 20 years ago. She does not recall if she had any cervical injections since surgery. She has been regularly seen by Dr. Johnson and had cervical imaging completed at [facility]. She presents with painful cervical ROM, especially with extension, flexion, and right lateral bending. Patient denies any fever, abdominal or groin pain, numbness, tingling, dizziness, chest pain, weight changes, bladder/bowel dysfunction or saddle anesthesia. She reports intermittent weakness. 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 Surgical History H/O shoulder surgery Hx of cervical spine surgery History of surgery Family History Father Heart disease Mother Lung cancer Other Family history of osteoarthritis Social History Alcohol intake: current Alcohol intake frequency: does not drink Comment: chronic Patient Tobacco Use Status: Former Tobacco user Quit Date: 2019 Tobacco use type: Cigarette Review of Systems Const All systems reviewed & are unremarkable except as noted in HPI and below Physical Exam Vital Signs: Last Vital Signs Pulse 90 08/22/23 10:28 BP 199/103 H 08/22/23 10:28 Pulse Ox 98 08/22/23 10:28 Oxygen Delivery Method Room Air 08/22/23 10:28 BMI result Body Mass Index 23.4 General: Appears afebrile. Alert and oriented. Mood and affect appropriate. Follows and participates in conversation appropriately. Respiratory effort is unlabored. No cough. Able to transition from sit to stand unassisted. Ambulates with bilaterally normal heel strike and toe off. Back/Spine/Pelvis Other: Multiple widespread tender points bilaterally, including upper and lower extremities. Facet loading positive bilaterally. Lumbar flexion and extension reproduce moderate symptoms. Cervical Spine: pain with cervical ROM, No Cervical spine tenderness and No step off deformity Thoracic/Lumbar Spine: thoracic and lumbar spine normal to inspection, Lasegue's sign positive on the left and localized, pain with thoraco-lumbar ROM, paraspinal muscle tenderness, thoraco-lumbar ROM limited, No thoracic spinal tenderness, lumbar spinal tenderness at L4 and at L5 and straight leg raise positive left at 40 degrees Pelvis: buttock tenderness bilaterally Sacroiliac joints: bilaterally (Stanton's, Stinchfield's, Gaenslen's test positive bilat. L>R) tender to palpation Neuro Gait exam (Neuro): Antalgic gait present and No Assistive device used Motor exam (neuro): 5/5 motor strength present throughout (4/5 on the left due to pain), no tremor noted and Motor abnormalities not present Extrem General: Yes capillary refill normal, Yes no clubbing, cyanosis or edema and Yes no calf tenderness Results Reviewed Results Reviewed: MR LUMBAR SPINE WITHOUT CONTRAST 05/21/23 CLINICAL INFORMATION: Lumbar radiculopathy COMPARISON: MRI lumbar spine 10/10/2020 TECHNIQUE: MRI of the lumbar spine was obtained using routine sequences without contrast. FINDINGS: Lumbar straightening. Trace anterolisthesis of L3 on L4. No suspicious marrow signal or focal osseous lesion. Right-sided endplate marrow edema at L4-L5. The vertebral body heights are maintained. Multilevel disc dessication and height loss. The conus medullaris terminates at the level of L1-L2. The distal spinal cord is normal in appearance. The cauda equina nerve roots appear normal. No significant abnormalities of the paraspinal musculature. Limited evaluation of the intra-abdominal structures without significant abnormalities. The abdominal aorta is of normal contour and caliber. SPINAL LEVELS: L1-L2: Shallow left eccentric disc bulge and mild facet arthropathy. No significant spinal canal stenosis. Stable mild left neural foraminal narrowing. L2-L3: Left greater than right facet arthropathy, left eccentric disc bulge. Stable mild bilateral neural foraminal narrowing, left greater than right. No significant central spinal canal stenosis. L3-L4: Anterolisthesis with posterior disc uncovering, severe facet arthropathy. Small left central disc protrusion. No significant spinal canal or neural foraminal narrowing. L4-L5: Right eccentric disc osteophyte complex. Facet arthropathy. No significant central spinal canal stenosis. Stable subarticular zone narrowing with likely mass effect on the traversing L5 nerve roots. Stable mild bilateral neural foraminal narrowing, record midline shift. L5-S1: Left greater than right facet arthropathy. Disc osteophyte complex with large central disc protrusion. Stable narrowing of the subarticular zones with mass effect on the traversing left greater than right S1 nerve roots. No significant central spinal canal stenosis. Stable moderate to severe bilateral neural foraminal narrowing with impingement of the exiting L5 nerve roots. IMPRESSION: 1. Multilevel lumbar spondylosis as described above has not significantly progressed compared to MRI from 10/10/2020. There is no significant central spinal canal stenosis. 2. At L4-L5 and L5-S1, there is stable subarticular zone narrowing with mass effect on the traversing L5 and S1 nerve roots as well as moderate to severe bilateral neural foraminal narrowing at L5-S1 with impingement of the exiting L5 nerve roots. XR PELVIS AND BILATERAL HIPS XR SACROILIAC JOINTS XR LUMBAR SPINE 06/07/23 FINDINGS: LUMBOSACRAL SPINE: 5 segmented vertebra of the lumbar spine. The vertebral body heights are maintained. No vertebral compression fractures. No evidence of pars interarticularis defects. There are varying degrees of degenerative disc space narrowing, endplate sclerosis and osteophytosis of the lumbar spine. The disc space narrowing is moderate on the left at L1-L2, mild-to moderate at L2-L3 and L3-L4, and moderate on the right at L4-L5. Also, there is [id number] diffuse disc space loss at L5-S1. Multilevel facet osteoarthritis is present. There is a reversal of lordosis above the L3-L4 level. Approximately 0.2 - 0.3 cm of degenerative grade 1 anterolisthesis at L2-L3 seen on flexion; this incompletely reduces on extension. There is 0.5 cm of grade 1 anterolisthesis at L3-L4 which remains unchanged on flexion and extension. There is atherosclerotic calcification of the aorta and iliac arteries. SACROILIAC JOINTS: Sacral ala and sacroiliac joints are intact. No evidence of sacroiliitis. No suspicious bone lesions. PELVIS AND HIPS: The osseous pelvic ring is intact. Alignment is normal at the pubic symphysis, hips and sacroiliac joints. No focal lytic or osteoblastic lesions. The articular cartilage space of each hip is maintained. Alignment is normal at both femoroacetabular joints. No evidence of any significant degenerative or inflammatory arthropathy. IMPRESSION: * Multilevel facet osteoarthritis and discovertebral degenerative change of the lumbar spine, as noted above, with grade 1 anterolisthesis at L2-L3 and L3-L4. No vertebral compression fractures. * There is reversal of lumbar lordosis above the L3-L4 level (with 0.5 cm anterolisthesis of L3 on L4). * No evidence of sacroiliitis. * The hips are unremarkable. Assessment & Plan Assessment & Plan (1) Right shoulder pain: Code(s): M25.511 - Pain in right shoulder (2) Osteoarthritis of right acromioclavicular joint: Code(s): M19.011 - Primary osteoarthritis, right shoulder (3) Osteoarthritis of right glenohumeral joint: Code(s): M19.011 - Primary osteoarthritis, right shoulder (4) Lumbar radiculopathy: Code(s): M54.16 - Radiculopathy, lumbar region (5) Intractable low back pain: Code(s): M54.59 - Other low back pain (6) Lumbar degenerative disc disease: Code(s): M51.36 - Other intervertebral disc degeneration, lumbar region (7) Cervical spondylosis: Code(s): M47.812 - Spondylosis without myelopathy or radiculopathy, cervical region Plan Patient is one month s/p bilateral L5-S1 TFESI with excellent results for right side and 40-50% pain relief on the left side. She continues to have significant left radiculopathy with discogenic and SIJ pain. Reports left sided weakness with associated paresthesia and imbalance. Most recent MRI and xray studies were reviewed with patient again today, noted for multilevel facet osteoarthritis and discovertebral degenerative change of the lumbar spine, with grade 1 anterolisthesis at L2-L3 and L3-L4. Will proceed with Neurosurgical evaluation as next steps. Patient is aware to call if pain worsens or if she develops any red flag symptoms to seek emergency care. Patient denies any cauda equina syndrome symptoms at this time. Orthopedic Referral to follow up on previous right shoulder MRI and treatments. Patient is hesitant towards injections, including injections under fluoroscopy guidance. She would like evaluation for potential surgical option. All questions and concerns have been answered and patient agreed with the plan. Follow up as needed. Orders: Referrals Neurosurgery Referral M54.16 - Radiculopathy, lumbar region, M54.59 - Other low back pain Orthopedics Referral M19.011 - Primary osteoarthritis, right shoulder, M25.511 - Pain in right shoulder Coding Level of Care Code Est Pt Level 4 (50538) Diagnoses Right shoulder pain M25.511 Osteoarthritis of right acromioclavicular joint M19.011 Osteoarthritis of right glenohumeral joint M19.011 Lumbar radiculopathy M54.16 Intractable low back pain M54.59 Lumbar degenerative disc disease M51.36 Cervical spondylosis M47.812
[2023-08-22 10:28] VITALS: BP 199/103; PULSE 90; O2SAT 98; BMI 23.4
== END 2023-08-22 10:42 | disposition home or self-care (01) ==
PROVIDERS: PCP Nurse Practitioner; Visit Provider Nurse Practitioner Family
DX: M25.511 Pain in right shoulder (principal); M19.011 Primary osteoarthritis, right shoulder; M54.16 Radiculopathy, lumbar region; M54.59 Other low back pain; M51.36 Other intervertebral disc degeneration, lumbar region; M47.812 Spondylosis without myelopathy or radiculopathy, cervical region
CPT/HCPCS: 99214

== ENCOUNTER → 2023-08-22 10:25 | Outpatient (BNVA) | payer OTHER, SELFPAY | PROVIDERS: PCP Nurse Practitioner; Visit Provider Nurse Practitioner Family | DX: M51.36 Other intervertebral disc degeneration, lumbar region (principal); M47.812 Spondylosis without myelopathy or radiculopathy, cervical region; M54.59 Other low back pain; M54.16 Radiculopathy, lumbar region; M19.011 Primary osteoarthritis, right shoulder | CPT/HCPCS: 99212 ==

== ENCOUNTER → 2023-08-27 13:07 | Outpatient (BNVA) | payer OTHER, SELFPAY | PROVIDERS: PCP Nurse Practitioner; Visit Provider Physician Assistant ==

== ENCOUNTER → 2023-08-27 13:07 | Outpatient (BNVA) | payer OTHER, SELFPAY | PROVIDERS: PCP Nurse Practitioner; Referring Provider Nurse Practitioner Family; Visit Provider Physician Assistant | DX: M54.59 Other low back pain (principal) ==

== ENCOUNTER 2023-09-10 15:16 | Outpatient (REF) | payer OTHER, SELFPAY | END 2023-09-10 15:17 | disposition home or self-care (01) | LOC: HO.BBR 15:16 | PROVIDERS: PCP Nurse Practitioner; Visit Provider Nurse Practitioner Adult Health | DX: Z13.89 Encounter for screening for other disorder (principal) ==

== ENCOUNTER 2023-10-14 13:07 | Outpatient (REF) | payer OTHER, SELFPAY | END 2023-10-14 13:08 | disposition home or self-care (01) | LOC: HO.BBR 13:07 | PROVIDERS: PCP Nurse Practitioner; Visit Provider Nurse Practitioner Adult Health | DX: Z13.89 Encounter for screening for other disorder (principal) ==

== ENCOUNTER 2023-11-14 11:09 | Outpatient (REF) | payer OTHER, SELFPAY | END 2023-11-14 11:10 | disposition home or self-care (01) | LOC: HO.BBR 11:09 | PROVIDERS: PCP Nurse Practitioner; Visit Provider Nurse Practitioner Adult Health | DX: Z13.89 Encounter for screening for other disorder (principal) ==

== ENCOUNTER 2023-12-12 11:09 | Outpatient (REF) | payer OTHER, SELFPAY | END 2023-12-12 11:10 | disposition home or self-care (01) | LOC: HO.BBR 11:09 | PROVIDERS: PCP Nurse Practitioner; Visit Provider Nurse Practitioner Adult Health | DX: Z13.89 Encounter for screening for other disorder (principal) ==

== ENCOUNTER 2024-01-29 13:11 | Outpatient (REF) | payer OTHER, SELFPAY | END 2024-01-29 13:12 | disposition home or self-care (01) | LOC: HO.BBR 13:11 | PROVIDERS: PCP Nurse Practitioner; Visit Provider Nurse Practitioner Adult Health | DX: Z13.89 Encounter for screening for other disorder (principal) ==

== ENCOUNTER 2024-03-12 14:20 | Outpatient (REF) | payer OTHER, SELFPAY | END 2024-03-12 14:21 | disposition home or self-care (01) | LOC: HO.BBR 14:20 | PROVIDERS: PCP Nurse Practitioner; Visit Provider Nurse Practitioner Adult Health | DX: Z13.89 Encounter for screening for other disorder (principal) ==

== ENCOUNTER 2024-08-14 14:35 | Outpatient (AMB) | payer OTHER, SELFPAY ==
--- NOTE | 2024-08-14 14:38 | A.OFFVIS_ITS ---
Vital Signs 08/14/24 14:49 Height 5 ft 6 in Weight 155 lb BMI 25.0 BP 135/87 Blood Pressure Location Rt brachial Position Sitting Pulse 99 Pulse Source Pulse Oximeter Pulse Oximetry (%) 98 Oxygen Delivery Method Room Air Intake Visit Reasons: FU on back pain/ref again Intake Note: Pain today 01/24 [employer] Supervisor Required: No Accompanied by: Self / Same As Patient Allergies sulfamethoxazole [From Bactrim] Allergy (Mild, Verified 08/14/24 14:49) Hives trimethoprim [From Bactrim] Allergy (Mild, Verified 08/14/24 14:49) Hives morphine Adverse Reaction (Severe, Verified 08/14/24 14:49) CAN NOT CONTROL BEHAVIOR HPI Comments Details: Patient presents today for follow up for persistent low back pain with bilateral radiculopathy. Patient reports recent flare up of pain in L5-S1 distribution, left worse than right without inciting events. Patient reports pain is limiting her mobility, functioning, sleep and social interactions. She states she underwent Neurosurgery evaluation with Dr. Mosqueda and was deemed non-surgical. Antonieta hyman denies lower extremity weakness, bladder or bowel dysfunction or saddle anesthesia. She is interested to repeat L5-S1 TFESI injection as she reports good results with it last year and undergo behavioral clearance with her Psychologist Mackenzie Manley for potential SCS trial. Past Procedure: 07/23/23: Bilateral L5-S1 TFESI-100% pain relief for right side, 40-50% pain relief for left side 04/05/23: Bilateral Therapeutic SIJ injections-0% pain relief 08/03/22: Left SIJ steroid injection-80% pain relief for 4 weeks 07/28/21: Bilateral L4-L5, L5-S1 facet therapeutic injections-0% pain relief PRIOR: Patient presents today to request a repeat of the sacroiliac joint injection. She requests me to perform bilateral sacroiliac joint injection. She complains on multiple widespread all body pain as well. She reports pain in the right shoulder, pain in bilateral hands, pain in bilateral lower extremities. She tried diclofenac however she cannot use diclofenac as much as she wants to because it effects children around her and her animals. I recommend her to were gloves when and after she applies diclofenac to herself. She tried meloxicam however meloxicam causes skin bruising on her. I recommend her to try vitamin P in combination with meloxicam it probably can help for her pain. And the past she reported 80% pain relief for 4 weeks after procedure with notable increase in her mobility, functioning, better sleep and better social interactions. Patient continues to endorse multiple joint pain especially in her both hands. She also presents with mild to moderate right sided SIJ pain and requests to repeat bilateral therapeutic SIJ injections with sedation. Her pain is localized in lower back extending to both upper buttocks and lateral hips with intermittent radiation of pain into her left groin. She will be scheduled for bilateral sacroiliac joint injection under sedation. She requests me to put her on opioid program here. I explained to her that due to staffing shortage we cannot put her on opioid program. I had explained to her that the longer she is staying on opioids chronically the worse her pain will become not better. I recommended her that her psychiatrist which prescribes her her antidepressant will attempt to switch her to amitriptyline or sertraline. She complains of cervicalgia I recommended her to get engaged with physical therapy. I will refer her for physical therapy. Past Procedure: 08/03/22: Left SIJ steroid injection-80% pain relief for 4 weeks 07/28/21: Bilateral L4-L5, L5-S1 facet therapeutic injections-0% pain relief PRIOR: Patient is a pleasant 66 years old female who has been previously seen in this office by Dr. Sosa. She presents today to assess response to bilateral facet joint therapeutic injections L4-L5 and L5-S1 on 07/28/21 under sedation. Patient reports previous injection on 07/28/21 provided her 0% pain relief. Prior to that, she had same injection on 04/27/2021 with 90% pain relief. Patient reports her mobility has decreased, with walking for any distance and standing over 10-15 minutes exacerbates her axial pain that goes across her lower back and her bilateral hip. We reviewed her MRI lumbar from 09/2020 that was significant for a large central disc osteophyte protrusion continues to compress the traversing S1 nerve roots within the subarticular zones bilaterally at L5-S1 level, and multifactorial degenerative changes result in stable moderate to severe bilateral foraminal stenosis with mass effect on the exiting L5 nerve roots bilaterally. Also, at L4-L5, a broad-based central disc protrusion continues to compress the traversing L5 nerve roots within the subarticular zones bilaterally. Patient competed physical therapy a year ago [place] very minimal improvements. Patient reports her neck pain has been most troublesome now that causes her significant headaches and muscle spasms. She reports history of anterior cervical fusion using titanium at C5-6 at [facility] over 20 years ago. She does not recall if she had any cervical injections since surgery. She has been regularly seen by Dr. Johnson and had cervical imaging completed at [facility]. She presents with painful cervical ROM, especially with extension, flexion, and right lateral bending. Patient denies any fever, abdominal or groin pain, numbness, tingling, dizziness, chest pain, weight changes, bladder/bowel dysfunction or saddle anesthesia. She reports intermittent weakness. 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 Surgical History H/O shoulder surgery Hx of cervical spine surgery History of surgery Family History Father Heart disease Mother Lung cancer Other Family history of osteoarthritis Social History Alcohol intake: current Alcohol intake frequency: does not drink Comment: chronic Patient Tobacco Use Status: Former Tobacco user Tobacco use type: Cigarette Review of Systems Const All systems reviewed & are unremarkable except as noted in HPI and below Physical Exam Vital Signs: Last Vital Signs Pulse 99 08/14/24 14:49 BP 135/87 08/14/24 14:49 Pulse Ox 98 08/14/24 14:49 Oxygen Delivery Method Room Air 08/14/24 14:49 BMI result Body Mass Index 25.0 General: Appears afebrile. Alert and oriented. Mood and affect appropriate. Follows and participates in conversation appropriately. Respiratory effort is unlabored. No cough. Able to transition from sit to stand unassisted. Ambulates with bilaterally normal heel strike and toe off, reports increased pain with toes standing, L>R. General: Yes no CVA tenderness Back/Spine/Pelvis Other: Limited lumbar ROM due to pain. Facet loading positive bilaterally. Lumbar flexion and extension reproduce moderate symptoms. Back: no CVA tenderness Cervical Spine: cervical muscular tenderness, pain with cervical ROM, No Cervical spine tenderness and No step off deformity Thoracic/Lumbar Spine: thoracic and lumbar spine normal to inspection, Lasegue's sign positive bilateral and localized, pain with thoraco-lumbar ROM, paraspinal muscle tenderness, thoraco-lumbar ROM limited, No thoracic spinal tenderness, lumbar spinal tenderness at L4 and at L5 and straight leg raise positive bilateral at 50 degrees Pelvis: buttock tenderness bilaterally Sacroiliac joints: bilaterally (Stanton's, Stinchfield's, Gaenslen's test positive bilat. L>R) tender to palpation Neuro Gait exam (Neuro): Antalgic gait present and No Assistive device used Motor exam (neuro): 5/5 motor strength present throughout (4/5 on the left due to pain), no tremor noted and Motor abnormalities not present Extrem General: Yes capillary refill normal, Yes no clubbing, cyanosis or edema and Yes no calf tenderness Results Reviewed Results Reviewed: MR LUMBAR SPINE WITHOUT CONTRAST 05/21/23 CLINICAL INFORMATION: Lumbar radiculopathy COMPARISON: MRI lumbar spine 10/10/2020 TECHNIQUE: MRI of the lumbar spine was obtained using routine sequences without contrast. FINDINGS: Lumbar straightening. Trace anterolisthesis of L3 on L4. No suspicious marrow signal or focal osseous lesion. Right-sided endplate marrow edema at L4-L5. The vertebral body heights are maintained. Multilevel disc dessication and height loss. The conus medullaris terminates at the level of L1-L2. The distal spinal cord is normal in appearance. The cauda equina nerve roots appear normal. No significant abnormalities of the paraspinal musculature. Limited evaluation of the intra-abdominal structures without significant abnormalities. The abdominal aorta is of normal contour and caliber. SPINAL LEVELS: L1-L2: Shallow left eccentric disc bulge and mild facet arthropathy. No significant spinal canal stenosis. Stable mild left neural foraminal narrowing. L2-L3: Left greater than right facet arthropathy, left eccentric disc bulge. Stable mild bilateral neural foraminal narrowing, left greater than right. No significant central spinal canal stenosis. L3-L4: Anterolisthesis with posterior disc uncovering, severe facet arthropathy. Small left central disc protrusion. No significant spinal canal or neural foraminal narrowing. L4-L5: Right eccentric disc osteophyte complex. Facet arthropathy. No significant central spinal canal stenosis. Stable subarticular zone narrowing with likely mass effect on the traversing L5 nerve roots. Stable mild bilateral neural foraminal narrowing, record midline shift. L5-S1: Left greater than right facet arthropathy. Disc osteophyte complex with large central disc protrusion. Stable narrowing of the subarticular zones with mass effect on the traversing left greater than right S1 nerve roots. No significant central spinal canal stenosis. Stable moderate to severe bilateral neural foraminal narrowing with impingement of the exiting L5 nerve roots. IMPRESSION: 1. Multilevel lumbar spondylosis as described above has not significantly progressed compared to MRI from 10/10/2020. There is no significant central spinal canal stenosis. 2. At L4-L5 and L5-S1, there is stable subarticular zone narrowing with mass effect on the traversing L5 and S1 nerve roots as well as moderate to severe bilateral neural foraminal narrowing at L5-S1 with impingement of the exiting L5 nerve roots. XR PELVIS AND BILATERAL HIPS XR SACROILIAC JOINTS XR LUMBAR SPINE 06/07/23 FINDINGS: LUMBOSACRAL SPINE: 5 segmented vertebra of the lumbar spine. The vertebral body heights are maintained. No vertebral compression fractures. No evidence of pars interarticularis defects. There are varying degrees of degenerative disc space narrowing, endplate sclerosis and osteophytosis of the lumbar spine. The disc space narrowing is moderate on the left at L1-L2, mild-to moderate at L2-L3 and L3-L4, and moderate on the right at L4-L5. Also, there is [id number] diffuse disc space loss at L5-S1. Multilevel facet osteoarthritis is present. There is a reversal of lordosis above the L3-L4 level. Approximately 0.2 - 0.3 cm of degenerative grade 1 anterolisthesis at L2-L3 seen on flexion; this incompletely reduces on extension. There is 0.5 cm of grade 1 anterolisthesis at L3-L4 which remains unchanged on flexion and extension. There is atherosclerotic calcification of the aorta and iliac arteries. SACROILIAC JOINTS: Sacral ala and sacroiliac joints are intact. No evidence of sacroiliitis. No suspicious bone lesions. PELVIS AND HIPS: The osseous pelvic ring is intact. Alignment is normal at the pubic symphysis, hips and sacroiliac joints. No focal lytic or osteoblastic lesions. The articular cartilage space of each hip is maintained. Alignment is normal at both femoroacetabular joints. No evidence of any significant degenerative or inflammatory arthropathy. IMPRESSION: * Multilevel facet osteoarthritis and discovertebral degenerative change of the lumbar spine, as noted above, with grade 1 anterolisthesis at L2-L3 and L3-L4. No vertebral compression fractures. * There is reversal of lumbar lordosis above the L3-L4 level (with 0.5 cm anterolisthesis of L3 on L4). * No evidence of sacroiliitis. * The hips are unremarkable. Assessment & Plan Assessment & Plan (1) Lumbar radiculopathy: Code(s): M54.16 - Radiculopathy, lumbar region Category: Medical (2) Intractable low back pain: Code(s): M54.59 - Other low back pain Category: Medical (3) Lumbar degenerative disc disease: Code(s): M51.36 - Other intervertebral disc degeneration, lumbar region Category: Medical (4) Spondylosis of lumbar spine: Code(s): M47.816 - Spondylosis without myelopathy or radiculopathy, lumbar region Category: Medical Plan Schedule Bilateral L5-S1 TFESI with light sedation (per patient's request) and fluoroscopy for low back pain with radiculopathy. Expectations, risks and benefits were reviewed. Patient is aware she will be contacted to schedule this procedure. Placed referral for psychology clearance in anticipation of SCS trial for a longer term pain management to patient's current Behavioral Health Provider. Extensive discussion regarding the risks and benefits of SCS trial and implant procedures and all questions were answered to patient satisfaction. Informational pamphlets provided to patient today. All questions were answered and the patient is in agreement of plan. Follow-up after injections and sooner as needed. Orders: Referrals Psychology Referral G89.4 - Chronic pain syndrome, M47.816 - Spondylosis without myelopathy or radiculopathy, lumbar region, M51.36 - Other interv ertebral disc degeneration, lumbar region, M54.16 - Radiculopathy, lumbar region, M54.59 - Other low back pain Coding Level of Care Code Est Pt Level 4 (64783) Complex EM visit Add On G2211 Diagnoses Lumbar radiculopathy M54.16 Intractable low back pain M54.59 Lumbar degenerative disc disease M51.36 Spondylosis of lumbar spine M47.816
[2024-08-14 14:49] VITALS: BP 135/87; PULSE 99; O2SAT 98; BMI 25.0
--- OUTSIDE RECORDS SUMMARY | 2024-08-14 16:45 | XMS_ITS | Clinical Summary ---
Author Organization [facility] Address [address] [place] [address] Phone Care Team Providers Care Lotteries Agent Name Role Phone Sowmya Solorio STEAMER TENDER Primary Care Provider [phone] Allergies Active Allergy Reactions Criticality Noted Date Comments Morphine 04/30/2024 Medications Anoro Ellipta 62.5-25 mcg/actuation inhaler Inhale 1 puff by mouth 1 (one) time each day. 04/18/20 24 Active traZODone (DESYREL) 100 mg tablet Take 2 tablets (200 mg total) by mouth. at bedtime Active traMADoL (ULTRAM) 50 mg tablet TAKE 1 TABLET BY MOUTH EVERY 4 TO 6 HOURS FOR 7 DAYS Active tiZANidine (ZANAFLEX) 4 mg tablet TAKE 1 TABLET BY MOUTH EVERY 8 HOURS NEEDED FOR MUSCLE SPASM FOR 30 DAYS 07/04/19 24 Active simvastatin (ZOCOR) 40 mg tablet Take 1 tablet (40 mg total) by mouth at bedtime. 04/16/20 24 Active omeprazole (PriLOSEC) [address] capsule Take 1 capsule (20 mg total) by mouth 1 (one) time each day. 04/16/20 24 Active amphetamine-d extroamphetam ine (ADDERALL) 30 mg tablet TAKE 1 TABLET EVERY MORNING SANDOZ MANUFACTUERER ONLY 03/19/20 24 Active escitalopram (LEXAPRO) 10 mg tablet Take 1 tablet (10 mg total) by mouth 1 (one) time each day. 04/11/20 24 Active clonazePAM (KlonoPIN) 0.5 mg tablet TAKE 1 TABLET BY MOUTH 3 TIMES EVERY DAY 11/21/19 24 Active cholecalcifer ol (VITAMIN D-3) 25 mcg (1,000 unit) capsule 1 capsule (1,000 Units total). 03/26/20 15 Active aspirin 81 mg EC tablet Take 1 tablet (81 mg total) by mouth 1 (one) time each day. Active albuterol HFA (ProAir HFA) 90 mcg/actuation inhaler 1 puff every 6 (six) hours if needed. 08/18/19 15 Active ferrous sulfate 325 mg (65 mg iron) EC tablet TAKE 1 TABLET (325 MG TOTAL) BY MOUTH EVERY OTHER DAY. DO NOT CRUSH, CHEW, OR SPLIT. 90 tablet 1 08/14/19 25 026 Active oxyCODONE (ROXICODONE) 5 mg immediate release tablet Take 1 tablet (5 mg total) by mouth every 4 (four) hours. 025 Discontinued acetaminophen (TYLENOL) 500 mg tablet Take 2 tablets (1,000 mg total) by mouth. 04/06/20 24 025 Discontinued ferrous sulfate 325 mg (65 mg iron) EC tablet Take 1 tablet (325 mg total) by mouth every other day. Do not crush, chew, or split. 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 Degenerative arthritis of cervical spine 011 Radiculitis, cervical 08/10/2010 Hand pain 04/24/2010 Radiculitis, lumbosacral 09/28/2009 Fibromyalgia 07/29/2009 Neck pain 07/29/2009 Low back pain 07/29/2009 Encounters Date Type Department Care Team Description 08/12/2024 Telephone Gastroenterology - [address] [facility] [address] [facility] [address] [place] [address] Ailyn Gray MD 08/06/2024 2:05 PM EST Lab Draw Station - [facility] [address] [facility] [address] [place] [address] Hereditary hemochromatosis (CMS/HCC) 08/06/2024 1:00 PM EST Office Visit [facility] Hematology Oncology [address] [place] [phone] Bubba Gordon MD Hereditary hemochromatosis (CMS/HCC) from Last 3 Months Surgical History Surgery Date Site/Laterality Comments OTHER SURGICAL HISTORY 2000 PROCEDURE: DC LAMOT PRTL FFD EXC DISC REEXPL 1 NTRSPC CERVICAL OTHER SURGICAL HISTORY 2010 Left PROCEDURE: DC SURGICAL ARTHROSCOPY SHOULDER LMTD DBRDMT 06/18 ESOPHAGOGASTRODUODENOSCOPY 08/22/2021 3 year recall h/o barretts COLONOSCOPY 08/22/2021 3 year recall phx polyps COLONOSCOPY 09/06/2015 3 year recall ESOPHAGOGASTRODUODENOSCOPY 01/02/2012 TOTAL SHOULDER ARTHROPLASTY Left Medical History Medical History Date Comments COPD (chronic obstructive pu lmonary disease) (CMS/HCC) DX:COPD (chronic obstructive pulmonary disease) ([facility]) Hyperlipidemia DX:Hyperlipidemi a Depression DX:Depression Anxiety DX:Anxiety Family History Medical History Relation Name Comments Autoimmune disease Neg Hx Breast cancer Neg Hx Colon cancer Neg Hx Coronary artery disease Neg Hx Diabetes Neg Hx Heart attack Neg Hx Heart failure Neg Hx Hyperlipidemia Neg Hx Hypertension Neg Hx Mental illness Neg Hx Prostate cancer Neg Hx Sleep apnea Neg Hx Thyroid disease Neg Hx Social History Tobacco Use Types Packs/Day Years Used Date Smoking Tobacco: Former Cigarettes S tarted: 1970 Smokeless Tobacco: Never Tobacco Cessation:Counseling Given: Not Answered Alcohol Use Standard Drinks/Week Comments Not Currently 0 (1 standard drink = 0.6 oz pur e alcohol) Comments Unknown Sex and Gender Information Value Date Recorded Sex Assigned at Not on file Legal Sex Female 3:18 PM EST Gender Identity Not on file Sexual Orientation Not on file Obstetrics History Last Filed Vital Signs Vital Sign Reading Time Taken Comments Blood Pressure 146/87 08/06/2024 1:20 PM EST Pulse 84 08/06/2024 1:20 PM EST Temperature 36.4 ??C (97.6 ??F) 08/06/2024 1:20 PM ES T Respiratory Rate - - Oxygen Saturation 98% 08/06/2024 1:20 PM EST Inhaled Oxygen Concentration - - Weight 70.4 kg (155 lb 3.2 oz) 08/06/2024 1:20 P M EST Height 167.6 cm (5' 6 ) 08/06/2024 1:20 PM EST Body Mass Index 25.05 08/06/2024 1:20 PM EST Plan of Treatment Upcoming Encounters Date Type Department Care Team (Late st Contact Info) Description 11/06/2024 2:00 PM EDT Office Visit [facility] Hematology Oncology [address] [place] [address] Bubba Nelson MD [address] [place] [address] Health Maintenance Due Date Last Done Comments Breast Cancer Screening 1955 Zoster Vaccines (1 of 2) 01/31/2006 RSV Immunization Patients 60 + Years Old (1 - Risk 60-74 years 1-dose series) 2016 DTaP,Tdap,and Td Vaccines (3 - Tdap) 10/12/2019 10/11/2009, 05/08/2001 Pneumococcal Vaccine: 50+ Years (2 of 2 - PCV) 07/28/2020 07/28/2019 Cholesterol Screening (Lipid Panel) 05/16/2022 Colorectal Cancer Screening: Colonoscopy 05/16/2022 Depression Screening 05/16/2022 Falls Risk Assessment 05/16/2022 Hepatitis C Screening 05/16/2022 Medicare Annual Wellness Visit 05/16/2022 Osteoporosis Screening (Bone Density Screening) 05/16/2022 Social Influencers of Health Screening 05/16/2022 COVID-19 Vaccine (1 - 2023-2 5 season) 2024 Influenza Vaccine (#1) 2024 03/03/2010 HIB Vaccines Aged Out No longer eligi ble based on patient's age to complete this topic HPV Vaccines Aged Out No longer eligi ble based on patient's age to complete this topic Hepatitis A Vaccines Aged Out No long er eligible based on patient's age to complete this topic Hepatitis B Vaccines Aged Out No long er eligible based on patient's age to complete this topic IPV Vaccines Aged Out No longer eligi ble based on patient's age to complete this topic MMR Vaccines Aged Out No longer eligi ble based on patient's age to complete this topic Meningococcal ACWY Vaccine Aged Out N o longer eligible based on patient's age to complete this topic Meningococcal B Vacine Aged Out No lo nger eligible based on patient's age to complete this topic RSV Immunization Patients Under 20 months Aged Out No longer eligible b ased on patient's age to complete this topic Varicella Vaccines Aged Out No longer eligible based on patient's age to complete this topic Procedures Procedure Name Priority Date/Time Associated Diagnosis Comments CBC WITH AUTO DIFFERENTIAL Routine 08/06/2024 2:01 PM EST Hereditary hemochromatosis (CMS/HCC) IRON AND TIBC Routine 08/06/2024 2:01 PM EST Hereditary hemochromatosis (CMS/HCC) FERRITIN Routine 08/06/2024 2:01 PM EST Hereditary hemochromatosis (CMS/HCC) CBC AND DIFFERENTIAL Routine 08/06/2024 2:01 PM EST Hereditary hemochromatosis (CMS/HCC) COMPREHENSIVE METABOLIC PANEL Routine 08/06/2024 2:01 PM EST Hereditary hemochromatosis (CMS/HCC) from Last 3 Months Results * (ABNORMAL) CBC auto differential (08/06/2024 2:01 PM EST) WBC 6.7 4.8 - 10.8 K/mcL LAB HEMETOLOGY METHOD 08/06/2024 4:50 PM [facility] RBC 5.20(H) 3.80 - 4.80 M/mcL LAB HEMETOLOGY METHOD 08/06/2024 4:50 PM [facility] Hemoglobin 12.0 11.5 - 16.0 g/dL LAB HEMETOLOGY METHOD 08/06/2024 4:50 PM [facility] Hematocrit 41.1 35.0 - 47.0 % LAB HEMETOLOGY METHOD 08/06/2024 4:50 PM [facility] MCV 79.5 79.0 - 98.0 FL LAB HEMETOLOGY METHOD 08/06/2024 4:50 PM [facility] MCH 23.2(L) 27.0 - 32.0 pcg LAB HEMETOLOGY METHOD 08/06/2024 4:50 PM [facility] MCHC 29.2(L) 32.0 - 37.0 g/dL LAB HEMETOLOGY METHOD 08/06/2024 4:50 PM [facility] RDW 18.9(H) 11.0 - 15.0 % LAB HEMETOLOGY METHOD 08/06/2024 4:50 PM [facility] Platelets 348 130 - 400 K/mcL LAB HEMETOLOGY METHOD 08/06/2024 4:50 PM [facility] MPV 9.4 7.0 - 11.0 FL LAB HEMETOLOGY METHOD 08/06/2024 4:50 PM [facility] NRBC 0.0 <1.0 % LAB HEMETOLOGY METHOD 08/06/2024 4:50 PM [facility] NRBC Absolute 0.00 <0.10 K/mcL LAB HEMETOLOGY METHOD 08/06/2024 4:50 PM [facility] Neutrophils Relative 46.2 % LAB HEMETOLOGY METHOD 08/06/2024 4:50 PM [facility] Lymphocytes Relative 38.0 % LAB HEMETOLOGY METHOD 08/06/2024 4:50 PM [facility] Monocytes Relative 11.8 % LAB HEMETOLOGY METHOD 08/06/2024 4:50 PM [facility] Eosinophils Relative 2.1 % LAB HEMETOLOGY METHOD 08/06/2024 4:50 PM [facility] Basophils Relative 1.6 % LAB HEMETOLOGY METHOD 08/06/2024 4:50 PM [facility] Immature Granulocytes Relative 0.3 % LAB HEMETOLOGY METHOD 08/06/2024 4:50 PM EST [facility] Neutrophils Absolute 3.08 1.50 - 7.00 K/[facility] LAB HEMETOLOGY METHOD 08/06/2024 4:50 PM EST [facility] Lymphocytes Absolute 2.54 1.00 - 5.00 K/mcL LAB HEMETOLOGY METHOD 08/06/2024 4:50 PM EST [facility] Monocytes Absolute 0.79 0.20 - 1.00 K/[facility] LAB HEMETOLOGY METHOD 08/06/2024 4:50 PM EST [facility] Eosinophils Absolute 0.14 0.00 - 0.50 K/[facility] LAB HEMETOLOGY METHOD 08/06/2024 4:50 PM EST [facility] Basophils Absolute 0.11 0.00 - 0.20 K/mcL LAB HEMETOLOGY METHOD 08/06/2024 4:50 PM EST [facility] Immature Granulocytes Absolute 0.02 0.00 - 0.03 K/[facility] LAB HEMETOLOGY METHOD 08/06/2024 4:50 PM EST [facility] Blood Venous blood specimen / Unknown Venipuncture / Unknown 08/06/2024 2:01 PM EST 08/06/2024 4:38 PM EST us Subramony Leslie BUTLER LAB BLOOD ORDERABLE S Final Result [facility] [address] [place] [address], * (ABNORMAL) Iron and TIBC (08/06/2024 2:01 PM EST) Iron 41 40 - 150 mcg/dL LAB CHEMISTRY METHOD 08/06/2024 5:01 PM EST [facility] TIBC 381 250 - 450 mcg/dL LAB CHEMISTRY METHOD 08/06/2024 5:01 PM EST [facility] Iron Saturation 11(L) 15 - 50 % LAB CHEMISTRY METHOD 08/06/2024 5:01 PM EST [facility] Blood Venous blood specimen / Unknown Venipuncture / Unknown 08/06/2024 2:01 PM EST 08/06/2024 4:37 PM EST us Bubba Nelson MD LAB BLOOD ORDERABLE S Final Result Performing Organization Address City/[facility]/ZIP Co de Phone Number [facility] [address] [place] [address], [place] [phone] * Ferritin (08/06/2024 2:01 PM EST) Pathologist [facility] Ferritin 14 8 - 252 ng/mL LAB CHEMISTRY METHOD 08/06/2024 5:03 PM [facility] Blood Venous blood specimen / Unknown Venipuncture / Unknown 08/06/2024 2:01 PM EST 08/06/2024 4:37 PM EST us Bubba Nelson MD LAB BLOOD ORDERABLE S Final Result Performing Organization Address [facility] Co de Phone Number [facility] [address] [place] [address], [place] [phone] * Comprehensive metabolic panel (08/06/2024 2:01 PM EST) Pathologist [facility] Sodium 139 133 - 145 mmol/L LAB CHEMISTRY METHOD 08/06/2024 5:03 PM [facility] Potassium 4.2 3.5 - 5.5 mmol/L LAB CHEMISTRY METHOD 08/06/2024 5:03 PM [facility] Chloride 104 96 - 110 mmol/L LAB CHEMISTRY METHOD 08/06/2024 5:03 PM [facility] CO2 28 21 - 32 mmol/L LAB CHEMISTRY METHOD 08/06/2024 5:03 PM [facility] Anion Gap 7 3 - 11 LAB CHEMISTRY METHOD 08/06/2024 5:03 PM [facility] Glucose 86 70 - 100 mg/dL LAB CHEMISTRY METHOD 08/06/2024 5:03 PM [facility] BUN 12 5 - 25 mg/dL LAB CHEMISTRY METHOD 08/06/2024 5:03 PM [facility] Creatinine 0.83 0.50 - 1.10 mg/dL LAB CHEMISTRY METHOD 08/06/2024 5:03 PM [facility] eGFR 77 >=60 mL/min/1. 73m2 LAB CHEMISTRY METHOD 08/06/2024 5:03 PM [facility] Comment:Calculation based on the??Chronic Kidney Disease Epidemiology Collaboration (CKD-EPI) equation refit??without adjustment for race. BUN/Creatinine Ratio 14.5 LAB CHEMISTRY METHOD 08/06/2024 5:03 PM [facility] Calcium 10.0 8.5 - 10.5 mg/dL LAB CHEMISTRY METHOD 08/06/2024 5:03 PM [facility] AST (SGOT) 19 10 - 42 unit/L LAB CHEMISTRY METHOD 08/06/2024 5:03 PM [facility] ALT (SGPT) 24 10 - 60 unit/L LAB CHEMISTRY METHOD 08/06/2024 5:03 PM [facility] Alkaline Phosphatase 98 42 - 121 unit/L LAB CHEMISTRY METHOD 08/06/2024 5:03 PM [facility] Total Protein 7.8 6.0 - 8.0 g/dL LAB CHEMISTRY METHOD 08/06/2024 5:03 PM [facility] Albumin 4.1 3.2 - 5.0 g/dL LAB CHEMISTRY METHOD 08/06/2024 5:03 PM [facility] Total Bilirubin 0.8 0.0 - 1.4 mg/dL LAB CHEMISTRY METHOD 08/06/2024 5:03 PM [facility] Blood Venous blood specimen / Unknown Venipuncture / Unknown 08/06/2024 2:01 PM EST 08/06/2024 4:37 PM EST Bubba Nelson MD LAB BLOOD ORDERABLE S Final Result [facility] [address] [place] [address], from Last 3 Months Insurance [place]ID - [place] [facility] Care Teams Lotteries Agent Relationship Specialty Start Date End Date Sowmya Solorio NP [address] [place] [address] [address] [place], [place] PCP - General Nurse Practitioner 04/28/24
--- OUTSIDE RECORDS SUMMARY | 2024-08-14 16:45 | XMS_ITS | Encounter Summary ---
Author Organization [facility] [place] [address] Care Team Providers Care Appeals Officer Name Role Phone Sowmya Solorio LUG BREAKER AND WIRE PULLER Primary Care Provider [phone] Encounter Details Date Type Department Care Team ([facility] Contact Info) Description 08/06/2024 2:05 PM EST Lab Draw Station - [address] [address] Hereditary hemochromatosis (CMS/HCC) Social History Tobacco Use Types Packs/Day Years Used Date Smoking Tobacco: Former Cigarettes S tarted: 1970 Smokeless Tobacco: Never Alcohol Use Standard Drinks/Week Comments Not Currently 0 (1 standard drink = 0.6 oz pur e alcohol) Comments Unknown Sex and Gender Information Value Date Recorded Sex Assigned at Not on file Legal Sex Female 3:18 PM EST Gender Identity Not on file Sexual Orientation Not on file documented as of this encounter Progress Notes * WILMER Silva - 08/06/2024 2:05 PM EST Colon/egd recall 08/2024. Please set up an appointment for scheduling, any provider. Thank you. documented in this encounter Plan of Treatment Upcoming Encounters Date Type Department Care Team ([facility] Contact Info) Description 11/06/2024 2:00 PM EDT Office Visit [facility] Hematology Oncology [address] [place] [phone] Bubba Nelson MD [address] [place] [phone] documented as of this encounter Procedures Procedure Name Priority Date/Time Associated Diagnosis Comments CBC WITH AUTO DIFFERENTIAL Routine 08/06/2024 2:01 PM EST Hereditary hemochromatosis (CMS/HCC) IRON AND TIBC Routine 08/06/2024 2:01 PM EST Hereditary hemochromatosis (CMS/HCC) CBC AND DIFFERENTIAL Routine 08/06/2024 2:01 PM EST Hereditary hemochromatosis (CMS/HCC) FERRITIN Routine 08/06/2024 2:01 PM EST Hereditary hemochromatosis (CMS/HCC) COMPREHENSIVE METABOLIC PANEL Routine 08/06/2024 2:01 PM EST Hereditary hemochromatosis (CMS/HCC) documented in this encounter Results * (ABNORMAL) CBC auto differential (08/06/2024 2:01 PM EST) WBC 6.7 4.8 - 10.8 K/mcL LAB HEMETOLOGY METHOD 08/06/2024 4:50 PM [facility] RBC 5.20(H) 3.80 - 4.80 M/mcL LAB HEMETOLOGY METHOD 08/06/2024 4:50 PM [facility] Hemoglobin 12.0 11.5 - 16.0 g/dL LAB HEMETOLOGY METHOD 08/06/2024 4:50 PM [facility] Hematocrit 41.1 35.0 - 47.0 % LAB HEMETOLOGY METHOD 08/06/2024 4:50 PM [facility] MCV 79.5 79.0 - 98.0 FL LAB HEMETOLOGY METHOD 08/06/2024 4:50 PM [facility] MCH 23.2(L) 27.0 - 32.0 pcg LAB HEMETOLOGY METHOD 08/06/2024 4:50 PM [facility] MCHC 29.2(L) 32.0 - 37.0 g/dL LAB HEMETOLOGY METHOD 08/06/2024 4:50 PM [facility] RDW 18.9(H) 11.0 - 15.0 % LAB HEMETOLOGY METHOD 08/06/2024 4:50 PM [facility] Platelets 348 130 - 400 K/mcL LAB HEMETOLOGY METHOD 08/06/2024 4:50 PM [facility] MPV 9.4 7.0 - 11.0 FL LAB HEMETOLOGY METHOD 08/06/2024 4:50 PM [facility] NRBC 0.0 <1.0 % LAB HEMETOLOGY METHOD 08/06/2024 4:50 PM [facility] NRBC Absolute 0.00 <0.10 K/mcL LAB HEMETOLOGY METHOD 08/06/2024 4:50 PM [facility] Neutrophils Relative 46.2 % LAB HEMETOLOGY METHOD 08/06/2024 4:50 PM [facility] Lymphocytes Relative 38.0 % LAB HEMETOLOGY METHOD 08/06/2024 4:50 PM [facility] Monocytes Relative 11.8 % LAB HEMETOLOGY METHOD 08/06/2024 4:50 PM [facility] Eosinophils Relative 2.1 % LAB HEMETOLOGY METHOD 08/06/2024 4:50 PM [facility] Basophils Relative 1.6 % LAB HEMETOLOGY METHOD 08/06/2024 4:50 PM [facility] Immature Granulocytes Relative 0.3 % LAB HEMETOLOGY METHOD 08/06/2024 4:50 PM [facility] Neutrophils Absolute 3.08 1.50 - 7.00 K/mcL LAB HEMETOLOGY METHOD 08/06/2024 4:50 PM EST [facility] Lymphocytes Absolute 2.54 1.00 - 5.00 K/mcL LAB HEMETOLOGY METHOD 08/06/2024 4:50 PM EST [facility] Monocytes Absolute 0.79 0.20 - 1.00 K/mcL LAB HEMETOLOGY METHOD 08/06/2024 4:50 PM EST [facility] Eosinophils Absolute 0.14 0.00 - 0.50 K/[facility] LAB HEMETOLOGY METHOD 08/06/2024 4:50 PM EST [facility] Basophils Absolute 0.11 0.00 - 0.20 K/[facility] LAB HEMETOLOGY METHOD 08/06/2024 4:50 PM EST [facility] Immature Granulocytes Absolute 0.02 0.00 - 0.03 K/mcL LAB HEMETOLOGY METHOD 08/06/2024 4:50 PM [facility] Blood Venous blood specimen / Unknown Venipuncture / Unknown 08/06/2024 2:01 PM EST 08/06/2024 4:38 PM EST Submonika Nelson MD LAB BLOOD ORDERABLE S Final Result [facility] [address] [place] [address], * (ABNORMAL) Iron and TIBC (08/06/2024 2:01 PM EST) Iron 41 40 - 150 mcg/dL LAB CHEMISTRY METHOD 08/06/2024 5:01 PM EST [facility] TIBC 381 250 - 450 mcg/dL LAB CHEMISTRY METHOD 08/06/2024 5:01 PM [facility] Iron Saturation 11(L) 15 - 50 % LAB CHEMISTRY METHOD 08/06/2024 5:01 PM EST [facility] Blood Venous blood specimen / Unknown Venipuncture / Unknown 08/06/2024 2:01 PM EST 08/06/2024 4:37 PM EST us Bubba Nelson MD LAB BLOOD ORDERABLE S Final Result Performing Organization Address [facility]/ZIP Co de Phone Number [facility] [address] [place] [address], [place] [phone] * Ferritin (08/06/2024 2:01 PM EST) [facility] Ferritin 14 8 - 252 ng/mL LAB CHEMISTRY METHOD 08/06/2024 5:03 PM [facility] Blood Venous blood specimen / Unknown Venipuncture / Unknown 08/06/2024 2:01 PM EST 08/06/2024 4:37 PM EST us Bubba Nelson MD LAB BLOOD ORDERABLE S Final Result Performing Organization Address [facility]/ZIP Co de Phone Number [facility] [address] [place] [address], [place] [phone] * Comprehensive metabolic panel (08/06/2024 2:01 PM EST) [facility] Sodium 139 133 - 145 mmol/L LAB CHEMISTRY METHOD 08/06/2024 5:03 PM [facility] Potassium 4.2 3.5 - 5.5 mmol/L LAB CHEMISTRY METHOD 08/06/2024 5:03 PM [facility] Chloride 104 96 - 110 mmol/L LAB CHEMISTRY METHOD 08/06/2024 5:03 PM [facility] CO2 28 21 - 32 mmol/L LAB CHEMISTRY METHOD 08/06/2024 5:03 PM [facility] Anion Gap 7 3 - 11 LAB CHEMISTRY METHOD 08/06/2024 5:03 PM [facility] Glucose 86 70 - 100 mg/dL LAB CHEMISTRY METHOD 08/06/2024 5:03 PM [facility] BUN 12 5 - 25 mg/dL LAB CHEMISTRY METHOD 08/06/2024 5:03 PM [facility] Creatinine 0.83 0.50 - 1.10 mg/dL LAB CHEMISTRY METHOD 08/06/2024 5:03 PM [facility] eGFR 77 >=60 mL/min/1. 73m2 LAB CHEMISTRY METHOD 08/06/2024 5:03 PM [facility] Comment:Calculation based on the??Chronic Kidney Disease Epidemiology Collaboration (CKD-EPI) equation refit??without adjustment for race. BUN/Creatinine Ratio 14.5 LAB CHEMISTRY METHOD 08/06/2024 5:03 PM [facility] Calcium 10.0 8.5 - 10.5 mg/dL LAB CHEMISTRY METHOD 08/06/2024 5:03 PM [facility] AST (SGOT) 19 10 - 42 unit/L LAB CHEMISTRY METHOD 08/06/2024 5:03 PM [facility] ALT (SGPT) 24 10 - 60 unit/L LAB CHEMISTRY METHOD 08/06/2024 5:03 PM [facility] Alkaline Phosphatase 98 42 - 121 unit/L LAB CHEMISTRY METHOD 08/06/2024 5:03 PM [facility] Total Protein 7.8 6.0 - 8.0 g/dL LAB CHEMISTRY METHOD 08/06/2024 5:03 PM [facility] Albumin 4.1 3.2 - 5.0 g/dL LAB CHEMISTRY METHOD 08/06/2024 5:03 PM [facility] Total Bilirubin 0.8 0.0 - 1.4 mg/dL LAB CHEMISTRY METHOD 08/06/2024 5:03 PM [facility] Blood Venous blood specimen / Unknown Venipuncture / Unknown 08/06/2024 2:01 PM EST 08/06/2024 4:37 PM EST us Subramony SubVivienne BUTLER LAB BLOOD ORDERABLE S Final Result [facility] [address] [place] [address], documented in this encounter Visit Diagnoses Diagnosis Hereditary hemochromatosis (CMS/HCC) Hereditary hemochromatosis documented in this encounter Care Teams Appeals Officer Relationship Specialty Start Date End Date Sowmya Solorio NP [address] [place] [address] Rd [address] [place], [place] PCP - General Nurse Practitioner 04/28/24 documented as of this encounter
--- OUTSIDE RECORDS SUMMARY | 2024-08-14 16:45 | XMS_ITS | Encounter Summary ---
Author Organization [facility] [place] [address] Care Team Providers Care Programmer Analyst Health It Name Role Phone Sowmya Solorio WORK ENVIRONMENT SAFETY INSPECTOR Primary Care Provider [phone] Encounter Details Date Type Department Care Team ([facility] [address] Contact Info) Description 08/12/2024 Telephone Gastroenterology - [address] [phone] Ailyn Wood MD [address] [address] Social History Tobacco Use Types Packs/Day Years [...] as of this encounter Progress Notes * Norma Espinosa - 08/12/2024 2:00 PM EST LMOM TO SCHED C&E W/YOLETTE WOOD PT 3 YR COLON PERSONAL HX POLYPS, ENIO documented in this encounter Plan of Treatment Upcoming Encounters Date Type Department Care Team ([facility] [address] Contact Info) Description 11/06/2024 2:00 PM EDT Office Visit [facility] Hematology Oncology [address] [place] [address] Luis-Bubba Borrego MD [address] [place] [address] documented as of this encounter Visit Diagnoses Not on filedocumented in this encounter Care Teams Programmer Analyst Health It Relationship Specialty Start Date End Date Sowmya Solorio NP [address] [place] [address] Rd [address] [place], [place] PCP - General Nurse Practitioner 04/28/24 documented as of this encounter
--- OUTSIDE RECORDS SUMMARY | 2024-08-14 16:45 | XMS_ITS | Encounter Summary ---
Author Organization [facility] Address [address] [place] [address] Care Team Providers Care Tree And Shrub Technician Name Role Phone Sowmya Solorio PROCESSING SPECIALIST Primary Care Provider [phone] Reason for Visit * Reason Comments Consult * Consultation (Routine) - Closed Specialty Diagnoses / Procedures Referred By Contac t Referred To Contact Hematology and Oncology Diagnoses Hereditary hemochromatosis (CMS/HCC) Sowmya Solorio NP [address] [place] [address] [address] [place], [place] Phone: tel: fax: Referral ID Status Reason Start Date Expiration Date V isits Requested Visits Authorized [id number] Closed Specialty Services Required 06/19/2024 06/19/2025 1 1 Encounter Details Date Type Department Care Team (Latest Contact Info) Description 08/06/2024 1:00 PM EST Office Visit [facility] Hematology Oncology [address] [place] [phone] Bubba Nelson MD [address] [place] [phone] Hereditary hemochromatosis (CMS/HCC) Social History Tobacco Use [...] on file documented as of this encounter Last Filed Vital Signs Vital Sign Reading [...] Mass Index 25.05 08/06/2024 1:20 PM EST documented in this encounter Ordered Prescriptions Prescription Sig Dispense Quantity Refills Last Filled Start Date End Date ferrous sulfate 325 mg (65 mg iron) EC tablet Take 1 tablet (325 mg total) by mouth every other day. Do not crush, chew, or split. 15 each 08/06/2024 08/14/2024 documented in this encounter Progress Notes * Bubba Nelson MD - 08/06/2024 1:00 PM EST Images from the original note were not included. Dear Dr. Solorio Thank you very much for referring this patient for consultation. HPI: This is a 69-year-old lady, who is accompanied by her daughter, who is also our patient. Patient ishere for evaluation regarding her adrenal, ptosis. Patient reports that approximately 10 years ago she started experiencing memory problems and issueswith her hair. After several years of evaluation, she had a neurology assessment and ferritin levelwas checked that proved to be in the 3000+ range. 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 Patient started on phlebotomy, was going every month. Approximately 6 months ago she was advised to hold phlebotomy for a while as ferritin levelreached 350. However patient wished to have a normal ferritin level and continued on phlebotomy andsubsequently developed anemia latest hemoglobin is 9.7. She reports ongoing issues with fatigue, occ asional dizziness, and dyspnea. 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 She reports stable weight. She denies any nausea or abdominal pain. 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 She recently had an ultrasound, will obtain the results from [facility]. She also reports having had an echocardiogram with [facility] cardiology, will obtain results Past medical history-reviewed below Medications-reviewed below Allergies-morphine, itching ROS: GENERAL: No malaise, significant weight loss or fever NECK: No lumps, goiter, pain or significant neck swelling RESPIRATORY: No cough, wheezing or shortness of breath CARDIOVASCULAR: No chest pain, leg swelling or palpitations GI: No abdominal discomfort, blood in stools or black stools MUSCULOSKELETAL: No joint pain or swelling, back pain, or muscle pain. 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 Degenerative arthritis of cervical spine 10/03/2010 Low back pain 07/29/2009 Radiculitis, cervical 08/10/2010 Radiculitis, lumbosacral 09/28/2009 Thoracic spine pain 10/25/2010 Resolved Ambulatory Problems Diagnosis Date Noted No Resolved Ambulatory Problems Past Medical History: Diagnosis Date Anxiety COPD (chronic obstructive pulmonary disease) (CMS/HCC) Hyperlipidemia PAST SURGICAL HISTORY: Past Surgical History: Procedure Laterality Date COLONOSCOPY 08/22/2021 3 year recall phx polyps COLONOSCOPY 09/06/2015 3 year recall ESOPHAGOGASTRODUODENOSCOPY 08/22/2021 3 year recall h/o barretts ESOPHAGOGASTRODUODENOSCOPY 01/02/2012 OTHER SURGICAL HISTORY 2001 PROCEDURE: AL LAMOT PRTL FFD EXC DISC REEXPL 1 NTRSPC CERVICAL OTHER SURGICAL HISTORY Left 2010 PROCEDURE: AL SURGICAL ARTHROSCOPY SHOULDER LMTD DBRDMT 1/2 TOTAL SHOULDER ARTHROPLASTY Left SOCIAL HISTORY: Social History Tobacco Use Smoking status: Former Types: Cigarettes Start date: 1968 Smokeless tobacco: Never Substance Use Topics Alcohol use: Not Currently FAMILY HISTORY: Family History Problem Relation Name Age of Onset Hyperlipidemia Neg Hx Diabetes Neg Hx Autoimmune disease Neg Hx Breast cancer Neg Hx Colon cancer Neg Hx Prostate cancer Neg Hx Coronary artery disease Neg Hx Mental illness Neg Hx Heart attack Neg Hx Heart failure Neg Hx Sleep apnea Neg Hx Hypertension Neg Hx Thyroid disease Neg Hx MEDICATIONS: Current Outpatient Medications: albuterol HFA (ProAir HFA) 90 mcg/actuation inhaler, 1 puff every 6 (six) hours if needed., Disp: ,Rfl: amphetamine-dextroamphetamine (ADDERALL) 30 mg tablet, TAKE 1 TABLET EVERY MORNING [employer] ONLY, Disp: , Rfl: Anoro Ellipta 62.5-25 mcg/actuation inhaler, Inhale 1 puff by mouth 1 (one) time each day., Disp: ,Rfl: cholecalciferol (VITAMIN D-3) 25 mcg (1,000 unit) capsule, 1 capsule (1,000 Units total)., Disp: , Rfl: clonazePAM (KlonoPIN) 0.5 mg tablet, TAKE 1 TABLET BY MOUTH 3 TIMES EVERY DAY, Disp: , Rfl: escitalopram (LEXAPRO) 10 mg tablet, Take 1 tablet (10 mg total) by mouth 1 (one) time each day., Disp: , Rfl: omeprazole (PriLOSEC) [address] capsule, Take 1 capsule (20 mg total) by mouth 1 (one) time each day., Disp: , Rfl: simvastatin (ZOCOR) 40 mg tablet, Take 1 tablet (40 mg total) by mouth at bedtime., Disp: , Rfl: tiZANidine (ZANAFLEX) 4 mg tablet, TAKE 1 TABLET BY MOUTH EVERY 8 HOURS NEEDED FOR MUSCLE SPASM FOR 30 DAYS, Disp: , Rfl: traMADoL (ULTRAM) 50 mg tablet, TAKE 1 TABLET BY MOUTH EVERY 4 TO 6 HOURS FOR 7 DAYS, Disp: , Rfl: traZODone (DESYREL) 100 mg tablet, Take 2 tablets (200 mg total) by mouth. at bedtime, Disp: , Rfl: aspirin 81 mg EC tablet, Take 1 tablet (81 mg total) by mouth 1 (one) time each day., Disp: , Rfl: ferrous sulfate 325 mg (65 mg iron) EC tablet, Take 1 tablet (325 mg total) by mouth every other day. Do not crush, chew, or split., Disp: 15 each, Rfl: 0 Allergies Allergen Reactions Morphine PHYSICAL EXAM: Visit Vitals BP (!) 146/87 (BP Location: Left arm, Patient Position: Sitting, BP Cuff Size: Small adult) Pulse 84 Temp 36.4 ??C (97.6 ??F) (Temporal) Ht 1.676 m (66 ) Wt 70.4 kg (155 lb 3.2 oz) SpO2 98% BMI 25.05 kg/m?? Smoking Status Former BSA 1.8 m?? APPEARANCE: Alert and in no acute distress Anxious EYES: PERRL, conjunctiva pink and sclera are Normal without icterus ORAL CAVITY: No erythema or exudates NECK: Neck supple, no adenopathy, HEART: RRR with normal S1 and S2, no murmurs, no gallops, no JVD appreciated LUNG: clear to auscultation bilaterally Percussion note normal LYMPH NODES: No palpable superficial adenopathy ABDOMEN: Bowel sounds normoactive, no bruits, soft, non-tender, without organomegaly or palpable masses EXTREMITIES: Extremities warm and well perfused without clubbing, cyanosis, rash or edema Bilateral small joint arthritis in the hands NEURO: Oriented X 3, no focal weakness; sensation is normal LABS: No results found for: WBC , HGB , HCT , MCV , PLT No results found for: NA , K , CO2 , CL , BUN , GLU Testing: Review of Lab results , interpreted No results found for: WBC , HGB , HCT , MCV , PLT No results found for: NA , K , CL , CO2 , GLUCOSE , BUN , CREATININE , CALCIUM , PROT , ALBUMIN , BILITOT , AST , ALT , URICACID , PHOS , MG , ALKPHOS , CKTOTAL , EGFR Review of Imaging, interpreted X-RAY EXAM OF FOOT, COMPLETE (3 VIEWS) Bilateral foot series: HISTORY: Bilateral foot pain Right foot (3 views): Mild osteoarthritis 1st MTP and interphalangeal joints. No fracture or focal bone pathology. Mild spurring Achilles tendon calcaneal insertion site. Left foot (3 views): Mild osteoarthritis left 1st MTP joint and interphalangeal joints. No fracture or focal bone pathology. IMPRESSION: IMPRESSION: Mild osteoarthritis both feet. Review of External Documentation Notes from PCP office Tests ordered - Labs ASSESSMENT 1. Hereditary hemochromatosis (CMS/HCC) PLAN: 69-year-old lady with homozygous hereditary hemochromatosis C282Y However currently with iron deficiency anemia due to continued phlebotomy #1 I recommend holding phlebotomy for now until ferritin level reaches greater than 300 and her anemia stabilizes at the normal hemoglobin range for at least 3 months #2 okay to use iron supplement 1 every other day along with multivitamin I sent in a prescription #3 discussed regarding dietary management, no need for severe restrictions of iron #4 optimal cooking of seafood, to prevent vibrio infection #5 testing of family members. -Her daughter underwent testing and is negative Lab monitoring at 3-month interval and I will contact her with results from today. Recheck CBC-D in1 month after iron supplements. Bubba Nelson MD Cc: Sowmya Solorio NP documented in this encounter Plan of Treatment Upcoming Encounters Date Type Department Care Team (Late st Contact Info) Description 11/06/2024 2:00 PM EDT Office Visit [facility] Hematology Oncology [address] [place] [phone] Bubba Nelson MD [address] [place] [phone] Scheduled Orders Name Type Priority Associated Diagnoses Orde r Schedule Comprehensive metabolic panel Lab Routine Hereditary hemochromatosis (CMS/HCC) Every 12 weeks for 2 Occurrences starting 08/06/2024 until 08/06/2025, 1 completed CBC and differential Lab Routine Hereditary hemochromatosis (CMS/HCC) Every 12 weeks for 2 Occurrences starting 08/06/2024 until 08/06/2025, 1 completed Ferritin Lab Routine Hereditary hemochromatosis (CMS/HCC) Every 12 weeks for 2 Occurrences starting 08/06/2024 until 08/06/2025, 1 completed Iron and TIBC Lab Routine Hereditary hemochromatosis (CMS/HCC) Every 12 weeks for 2 Occurrences starting 08/06/2024 until 08/06/2025, 1 completed documented as of this encounter Results * (ABNORMAL) Iron and TIBC (08/06/2024 2:01 PM EST) Pathologist [facility] Iron 41 40 - 150 mcg/dL LAB CHEMISTRY METHOD 08/06/2024 5:01 PM EST [facility] TIBC 381 250 - 450 mcg/dL LAB CHEMISTRY METHOD 08/06/2024 5:01 PM EST [facility] Iron Saturation 11(L) 15 - 50 % LAB CHEMISTRY METHOD 08/06/2024 5:01 PM EST [facility] Blood Venous blood specimen / Unknown Venipuncture / Unknown 08/06/2024 2:01 PM EST 08/06/2024 4:37 PM EST us Bubba Nelson MD LAB BLOOD ORDERABLE S Final Result Performing Organization Address City/[facility]/ZIP Co de Phone Number [facility] [address] [place] [address], [place] [phone] * Ferritin (08/06/2024 2:01 PM EST) [facility] Ferritin 14 8 - 252 ng/mL LAB CHEMISTRY METHOD 08/06/2024 5:03 PM EST [facility] Blood Venous blood specimen / Unknown Venipuncture / Unknown 08/06/2024 2:01 PM EST 08/06/2024 4:37 PM EST Bubba Nelson MD LAB BLOOD ORDERABLE S Final Result [facility] [address] [place] [address], [place] [phone] * Comprehensive metabolic panel (08/06/2024 2:01 PM EST) Pathologist [facility] Sodium 139 133 - 145 mmol/L LAB CHEMISTRY METHOD 08/06/2024 5:03 PM [facility] Potassium 4.2 3.5 - 5.5 mmol/L LAB CHEMISTRY METHOD 08/06/2024 5:03 PM [facility] Chloride 104 96 - 110 mmol/L LAB CHEMISTRY METHOD 08/06/2024 5:03 PM [facility] CO2 28 21 - 32 mmol/L LAB CHEMISTRY METHOD 08/06/2024 5:03 PM [facility] Anion Gap 7 3 - 11 LAB CHEMISTRY METHOD 08/06/2024 5:03 PM [facility] Glucose 86 70 - 100 mg/dL LAB CHEMISTRY METHOD 08/06/2024 5:03 PM [facility] BUN 12 5 - 25 mg/dL LAB CHEMISTRY METHOD 08/06/2024 5:03 PM [facility] Creatinine 0.83 0.50 - 1.10 mg/dL LAB CHEMISTRY METHOD 08/06/2024 5:03 PM [facility] eGFR 77 >=60 mL/min/1. 73m2 LAB CHEMISTRY METHOD 08/06/2024 5:03 PM [facility] Comment:Calculation based on the??Chronic Kidney Disease Epidemiology Collaboration (CKD-EPI) equation refit??without adjustment for race. BUN/Creatinine Ratio 14.5 LAB CHEMISTRY METHOD 08/06/2024 5:03 PM [facility] Calcium 10.0 8.5 - 10.5 mg/dL LAB CHEMISTRY METHOD 08/06/2024 5:03 PM [facility] AST (SGOT) 19 10 - 42 unit/L LAB CHEMISTRY METHOD 08/06/2024 5:03 PM [facility] ALT (SGPT) 24 10 - 60 unit/L LAB CHEMISTRY METHOD 08/06/2024 5:03 PM [facility] Alkaline Phosphatase 98 42 - 121 unit/L LAB CHEMISTRY METHOD 08/06/2024 5:03 PM EST [facility] Total Protein 7.8 6.0 - 8.0 g/dL LAB CHEMISTRY METHOD 08/06/2024 5:03 PM EST [facility] Albumin 4.1 3.2 - 5.0 g/dL LAB CHEMISTRY METHOD 08/06/2024 5:03 PM EST [facility] Total Bilirubin 0.8 0.0 - 1.4 mg/dL LAB CHEMISTRY METHOD 08/06/2024 5:03 PM EST [facility] Blood Venous blood specimen / Unknown Venipuncture / Unknown 08/06/2024 2:01 PM EST 08/06/2024 4:37 PM EST us Subramony Leslie BUTLER LAB BLOOD ORDERABLE S Final Result [facility] [address] [place] [address], documented in this encounter Visit Diagnoses Diagnosis Hereditary hemochromatosis (CMS/HCC) Hereditary hemochromatosis documented in this encounter Discontinued Medications Medication Sig Discontinue Reason Start Date End Da te acetaminophen (TYLENOL) 500 mg tablet Take 2 tablets (1,000 mg total) by mouth. 04/06/2024 08/06/2024 oxyCODONE (ROXICODONE) 5 mg immediate release tablet Take 1 tablet (5 mg total) by mouth every 4 (four) hours. 08/06/2024 documented as of this encounter Orders Outpatient Referral Count Last Ordered Date Fir st Ordered Date AMB REFERRAL TO HEMATOLOGY / ONCOLOGY 1 documented in this encounter Care Teams Tree And Shrub Technician Relationship Specialty Start Date End Date Sowmya Solorio NP [address] [place] [address] [address] [place], [place] PCP - General Nurse Practitioner 04/28/24 documented as of this encounter
== END 2024-08-14 15:08 | disposition home or self-care (01) ==
PROVIDERS: PCP Nurse Practitioner; Visit Provider Nurse Practitioner Family
DX: M54.16 Radiculopathy, lumbar region (principal); M54.59 Other low back pain; M51.369 Other intervertebral disc degeneration, lumbar region without mention of lumbar back pain or lower extremity pain; M47.816 Spondylosis without myelopathy or radiculopathy, lumbar region
CPT/HCPCS: 99214; G2211

== ENCOUNTER → 2024-08-14 14:35 | Outpatient (BNVA) | payer OTHER, SELFPAY | PROVIDERS: PCP Nurse Practitioner; Visit Provider Nurse Practitioner Family | DX: M47.26 Other spondylosis with radiculopathy, lumbar region (principal); M54.59 Other low back pain; M51.360 Other intervertebral disc degeneration, lumbar region with discogenic back pain only | CPT/HCPCS: 99212 ==

== ENCOUNTER 2025-01-08 09:14 | Day surgery (SDC) | payer OTHER, SELFPAY ==
--- OUTSIDE RECORDS SUMMARY | 2024-12-25 10:33 | XMS_ITS | Clinical Summary ---
Author Organization [facility] Address [address] [place] [address] Phone Care Team Providers Care [employer] Server Name Role Phone Sowmya Solorio COMPLAINT ADJUSTER Primary Care Provider [phone] Allergies Active Allergy Reactions Criticality Noted Date Comments Morphine Unknown 04/30/2024 Sulfamethoxazole-Trimetho prim 10/23/2024 Other Reaction(s): skin irritation Medications Anoro Ellipta 62.5-25 mcg/actuation inhaler Inhale 1 puff by mouth 1 (one) time each day. 4 Active traZODone (DESYREL) 100 mg tablet Take 2 tablets (200 mg total) by mouth. at bedtime Active traMADoL (ULTRAM) 50 mg tablet TAKE 1 TABLET BY MOUTH EVERY 4 TO 6 HOURS FOR 7 DAYS Active tiZANidine (ZANAFLEX) 4 mg tablet TAKE 1 TABLET BY MOUTH EVERY 8 HOURS NEEDED FOR MUSCLE SPASM FOR 30 DAYS 4 Active omeprazole (PriLOSEC) [address] capsule Take 1 capsule (20 mg total) by mouth 1 (one) time each day. 4 Active amphetamine-de xtroamphetamin e (ADDERALL) 30 mg tablet TAKE 1 TABLET EVERY MORNING [employer] ONLY 4 Active escitalopram (LEXAPRO) 10 mg tablet Take 1 tablet (10 mg total) by mouth 1 (one) time each day. 4 Active clonazePAM (KlonoPIN) 0.5 mg tablet TAKE 1 TABLET BY MOUTH 3 TIMES EVERY DAY 4 Active cholecalcifero l (VITAMIN D-3) 25 mcg (1,000 unit) capsule 1 capsule (1,000 Units total). 5 Active albuterol HFA (ProAir HFA) 90 mcg/actuation inhaler 1 puff every 6 (six) hours if needed. 5 Active ferrous sulfate 325 mg (65 mg iron) EC tablet TAKE 1 TABLET (325 MG TOTAL) BY MOUTH EVERY OTHER DAY. DO NOT CRUSH, CHEW, OR SPLIT. 90 tablet 1 5 08/14/19 26 Active polyethylene glycol (Golytely) 236-22.74-6.74 -5.86 gram solution Take 4L by mouth once for one dose. May substitue any PEG. Starting at 6PM the night before your procedure drink 1 8oz glasses at your own pace until you complete half of the gallon. Finish 2nd half of the gallon 5 hours before your procedure. 4000 mL 5 Active bisacodyL (DULCOLAX) 5 mg EC tablet Take 2 tablets by mouth right before beginning bowel prep. See instructions provided by the office 2 tablet 5 Active rosuvastatin (CRESTOR) 10 mg tablet Take 1 tablet (10 mg total) by mouth 1 (one) time each day. 5 Active ibuprofen (ADVIL,MOTRIN) 600 mg tablet 5 Active fluticasone propionate (FLONASE) 50 mcg/actuation nasal spray NEEDED APPLY 2 APPLICATION IN THE NOSTRILS DAILY 5 Active cetirizine (Aller-Igor) 10 mg tablet Take 1 tablet (10 mg total) by mouth. 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 Degenerative arthritis of cervical spine 011 Radiculitis, cervical 08/10/2010 Hand pain 04/24/2010 Radiculitis, lumbosacral 09/28/2009 Fibromyalgia 07/29/2009 Neck pain 07/29/2009 Low back pain 07/29/2009 Encounters Date Type Department Care Team Description 11/23/2024 Telephone Gastroenterology - [address] [phone] Ailyn Gray MD 11/19/2024 3:00 PM EDT Office Visit [facility] Hematology Oncology [address] [place] [address] Bubba Gordon MD Hereditary hemochromatosis ([facility] V24) (Primary Dx); Iron deficiency anemia due to chronic blood loss 11/03/2024 Telephone Gastroenterology - [address] [phone] Rossy Martin [place] 11/02/2024 7:33 AM EDT Anesthesia Event [facility] Endoscopy [address] [place] [address] Walter Smith MD 11/02/2024 6:56 AM EDT - 11/02/2024 11:59 PM EDT Hospital Encounter [facility] Endoscopy [address] [place] [address] Ailyn Gray MD Chang, Ling, CRNA GERD (gastroesophageal reflux disease); Constipation, unspecified constipation type Discharge Disposition: Home or Self Care 10/02/2024 Telephone Gastroenterology - [address] [phone] Ailyn Gray MD SPECIAL PROCEDURE from Last 3 Months Surgical History Surgery Date Site/Laterality Comments OTHER SURGICAL HISTORY 2000 PROCEDURE: NM LAMOT PRTL FFD EXC DISC REEXPL 1 NTRSPC CERVICAL OTHER SURGICAL HISTORY 2010 Left PROCEDURE: NM SURGICAL ARTHROSCOPY SHOULDER LMTD DBRDMT 1/2 ESOPHAGOGASTRODUODENOSCOPY 08/22/2021 3 year recall h/o barretts COLONOSCOPY 08/22/2021 3 year recall phx polyps COLONOSCOPY 09/06/2015 3 year recall ESOPHAGOGASTRODUODENOSCOPY 01/02/2012 TOTAL SHOULDER ARTHROPLASTY Left Medical History Medical History Date Comments COPD (chronic obstructive pu lmonary disease) ([facility] V24, [facility] V28) DX:COPD (chronic o bstructive pulmonary disease) ([facility]) Hyperlipidemia DX:Hyperlipidemi a Depression DX:Depression Anxiety DX:Anxiety [...] drink = 0.6 oz pur e alcohol) Interpersonal Safety Answer Date Record ed Physical Abuse 11/02/2024 Verbal Abuse 11/02/2024 Comments Unknown Sex and Gender Information Value Date Recorded Sex Assigned at Female 10/28/2024 12:15 PM EDT Legal Sex Female 3:18 PM EST Gender Identity Female 10/28/2024 12:15 PM EDT Sexual Orientation Not on file Obstetrics History Last Filed Vital Signs Vital Sign Reading Time Taken Comments Blood Pressure 119/79 11/19/2024 3:06 PM EDT Pulse 102 11/19/2024 3:06 PM EDT Temperature 37.2 C (99 F) 11/19/2024 3:06 PM EDT Respiratory Rate 16 11/02/2024 8:20 AM EDT Oxygen Saturation 96% 11/19/2024 3:06 PM EDT Inhaled Oxygen Concentration - - Weight 67.7 kg (149 lb 3.2 oz) 11/19/2024 3:06 P M EDT Height 167.6 cm (5' 6 ) 11/19/2024 3:06 PM EDT Body Mass Index 24.08 11/19/2024 3:06 PM EDT Plan of Treatment Upcoming Encounters Date Type Department Care Team (Late st Contact Info) Description 02/18/2025 2:45 PM EDT Office Visit [facility] Hematology Oncology [address] [place] [address] Bubba Nelson MD [address] [place] [phone] Health Maintenance Due Date Last Done Comments Breast Cancer Screening 1955 Hepatitis A Vaccines (1 of 2 - Risk 2-dose series) 01/31/1975 Zoster Vaccines (1 of 2) 01/31/2006 RSV Immunization Adult Patients (1 - Risk 60-74 years 1-dose series) 2016 DTaP,Tdap,and Td Vaccines (3 - Tdap) 10/12/2019 10/11/2009, 05/08/2001 Pneumococcal Vaccine: 50+ Years (2 of 2 - PCV) 07/28/2020 07/28/2019 Cholesterol Screening (Lipid Panel) 05/16/2022 Depression Screening 05/16/2022 Falls Risk Assessment 05/16/2022 Hepatitis C Screening 05/16/2022 Medicare Annual Wellness Visit 05/16/2022 Osteoporosis Screening (Bone Density Screening) 05/16/2022 Social Influencers of Health Screening 05/16/2022 COVID-19 Vaccine (1 - 2023-2 5 season) 2024 Influenza Vaccine (#1) 2025 03/03/2010 Colorectal Cancer Screening: Colonoscopy 11/02/2034 11/02/2024 HIB Vaccines Aged Out No longer eligi [...] age to complete this topic Meningococcal B Vaccine Aged Out No l onger eligible based on patient's age to complete this topic RSV Immunization Patients Under 20 months Aged Out No longer eligible b ased on patient's age to complete this topic Varicella Vaccines Aged Out No longer eligible based on patient's age to complete this topic Procedures Procedure Name Priority Date/Time Associated Diagnosis Comments COLONOSCOPY Routine 11/02/2024 7:59 AM EDT GERD (gastroesophageal reflux disease) Constipation, unspecified constipation type EGD Routine 11/02/2024 7:59 AM EDT GERD (gastroesophageal reflux disease) Constipation, unspecified constipation type TISSUE EXAM Routine 11/02/2024 7:40 AM EDT GERD (gastroesophageal reflux disease) Constipation, unspecified constipation type CBC WITH AUTO DIFFERENTIAL Routine 10/29/2024 3:58 PM EDT Hereditary hemochromatosis (CMS/HCC V24) COMPREHENSIVE METABOLIC PANEL Routine 10/29/2024 3:58 PM EDT Hereditary hemochromatosis (CMS/HCC V24) CBC AND DIFFERENTIAL Routine 10/29/2024 3:58 PM EDT Hereditary hemochromatosis (CMS/HCC V24) FERRITIN Routine 10/29/2024 3:58 PM EDT Hereditary hemochromatosis (CMS/HCC V24) IRON AND TIBC Routine 10/29/2024 3:58 PM EDT Hereditary hemochromatosis (CMS/HCC V24) from Last 3 Months Results * COLONOSCOPY Anesthesia - MAC; [facility] (11/02/2024 7:59 AM EDT) Anatomical Region Laterality Modality Other 11/02/2024 7:44 AM EDT Impressions 11/02/2024 8:00 AM EDT - The examined portion of the ileum was normal. - Three 2 to 5 mm polyps in the ascending colon, removed with a cold snare. Resected and retrieved. - Two 3 mm polyps in the transverse colon, removed with a cold snare. Resected and retrieved. - Diverticulosis in the sigmoid colon and in the descending colon. - Internal hemorrhoids. Recommendation: - Await pathology results. - Repeat colonoscopy for surveillance based on pathology results. Narrative 11/02/2024 8:00 AM EDT [facility] GI Patient Name: Almita Yoo Procedure Date: 11/02/2024 7:44 AM Date of : 1955 Age: 69 Gender: Female Note Status: Finalized Attending MD: Ailyn Gray MD, Procedure Date No Time: 11/02/2024 Procedure: Colonoscopy Indications: High risk colon cancer surveillance: Personal history of multiple (3 or more) adenomas Providers: Ailyn Gray MD Referring MD: Sowmya Solorio NP Medicines: Propofol per Anesthesia Complications: No immediate complications. Estimated Blood Loss: Estimated blood loss: none. Procedure: Pre-Anesthesia Assessment: - ASA Grade Assessment: II - A patient with mild systemic disease. - ASA Grade Assessment: II - A patient with mild systemic disease. After I obtained informed consent, the scope was passed under direct vision. Throughout the procedure, the patient's blood pressure, pulse, and oxygen saturations were monitored continuously.The Colonoscope was introduced through the anus and advanced to the terminal ileum. The colonoscopy was performed without difficulty. The patient tolerated the procedure well. The quality of the bowel preparation was excellent. Findings: The perianal and digital rectal examinations were normal. The terminal ileum appeared normal. Three sessile polyps were found in the ascending colon. The polyps were 2 to 5 mm in size. These polyps were removed with a cold snare. Resection and retrieval were complete. Two sessile polyps were found in the transverse colon. The polyps were 3 mm in size. These polyps were removed with a cold snare. Resection and retrieval were complete. Multiple medium-mouthed diverticula were found in the sigmoid colon and descending colon. Internal hemorrhoids were found during retroflexion. The hemorrhoids were Grade I (internal hemorrhoids that do not prolapse). Procedure Code(s): --- Professional --- 45166, Colonoscopy, flexible; with removal of tumor(s), polyp(s), or other lesion(s) by snare technique Diagnosis Code(s): --- Professional --- Z86.010, Personal history of colonic polyps D12.2, Benign neoplasm of ascending colon D12.3, Benign neoplasm of transverse colon (hepatic flexure or splenic flexure) CPT copyright 2020 [employer]. All rights reserved. The codes documented in this report are preliminary and upon money order clerk review may be revised to meet current compliance requirements. Ailyn Gray MD 11/02/2024 8:00:43 AM This report has been signed electronically.Ailyn Gray MD Number of Addenda: 0 Note Initiated On: 11/02/2024 7:44 AM Scope In: Scope Out: Endoscopy Department at [facility] - [address] [place] [phone] Procedure Note Ailyn Gray MD - 11/02/2024 [facility] GI Patient Name: Almita Yoo Procedure Date: 11/02/2024 7:44 AM Date of : 1955 Age: 69 Gender: Female Note Status: Finalized Attending MD: Ailyn Gray MD, Procedure Date No Time: 11/02/2024 Procedure: Colonoscopy Indications: High risk colon cancer surveillance: Personalhistory of multiple (3 or more) adenomas Providers: Ailyn Gray MD Referring MD: Sowmya Solorio NP Medicines: Propofol per Anesthesia Complications: No immediate complications. Estimated Blood Loss: Estimated blood loss: none. Procedure: Pre-Anesthesia Assessment: - ASA Grade Assessment: II - A patient with mild systemic disease. - ASA Grade Assessment: II - A patient with mild systemic disease. After I obtained informed consent, the scope was passed under direct vision. Throughout theprocedure, the patient's blood pressure, pulse, and oxygen saturations were monitored continuously.The Colonoscope was introduced through the anus and advanced to the terminal ileum. The colonoscopy was performed without difficulty. The patient tolerated the procedure well. The quality of the bowel preparation was excellent. Findings: The perianal and digital rectal examinations were normal. The terminal ileum appeared normal. Three sessile polyps were found in the ascending colon. The polyps were 2 to 5 mm in size. Thesepolyps were removed with a cold snare. Resection and retrieval were complete. Two sessile polyps were found in the transversecolon. The polyps were 3 mm in size. These polyps were removed with a cold snare. Resection and retrieval were complete. Multiple medium-mouthed diverticula were found inthe sigmoid colon and descending colon. Internal hemorrhoids were found duringretroflexion. The hemorrhoids were Grade I (internal hemorrhoids that do not prolapse). Procedure Code(s): --- Professional --- 86860, Colonoscopy, flexible; with removal of tumor(s), polyp(s), or other lesion(s) by snare technique Diagnosis Code(s): --- Professional --- Z86.010, Personal history of colonic polyps D12.2, Benign neoplasm of ascending colon D12.3, Benign neoplasm of transverse colon (hepatic flexure or splenic flexure) CPT copyright 2020 [employer]. All rights reserved. The codes documented in this report are preliminary and upon money order clerk reviewmay be revised to meet current compliance requirements. Ailyn Gray MD 11/02/2024 8:00:43 AM This report has been signed electronically.Ailyn Gray MD Number of Addenda: 0 Note Initiated On: 11/02/2024 7:44 AM Scope In: Scope Out: Endoscopy Department at [facility] - [address] [place] [phone] IMPRESSION: - The examined portion of the ileum was normal. - Three 2 to 5 mm polyps in the ascending colon, removed with a cold snare. Resected andretrieved. - Two 3 mm polyps in the transverse colon, removed with a cold snare. Resected and retrieved. - Diverticulosis in the sigmoid colon and in the descending colon. - Internal hemorrhoids. Recommendation: - Await pathology results. - Repeat colonoscopy for surveillance based on pathology results. Ailyn Gray MD GI~PROCEDURE ORDERABLES Final Result * EGD Anesthesia - MAC; [facility] (11/02/2024 7:59 AM EDT) Anatomical Region Laterality Modality Other 11/02/2024 7:35 AM EDT Impressions 11/02/2024 7:44 AM EDT - Small hiatal hernia. - Esophageal mucosal changes secondary to established short-segment Gaspar's disease. Biopsied. - Normal stomach. - Normal examined duodenum. Recommendation: - Continue present medications. - Await pathology results. Narrative 11/02/2024 7:44 AM EDT [facility] GI Patient Name: Almita Yoo Procedure Date: 11/02/2024 7:35 AM Date of : 1955 Age: 69 Gender: Female Note Status: Finalized Attending MD: Ailyn Gray MD, Procedure Date No Time: 11/02/2024 Procedure: Upper GI endoscopy Indications: Surveillance for malignancy due to personal history of Gaspar's esophagus Providers: Ailyn Gray MD Referring MD: Sowmya Solorio NP Medicines: Propofol per Anesthesia Complications: No immediate complications. Estimated Blood Loss: Estimated blood loss: none. Procedure: Pre-Anesthesia Assessment: - ASA Grade Assessment: II - A patient with mild systemic disease. After obtaining informed consent, the endoscope was passed under direct vision. Throughout the procedure, the patient's blood pressure, pulse, and oxygen saturations were monitored continuously.The Endoscope was introduced through the mouth, and advanced to the second part of duodenum. The upper GI endoscopy was accomplished without difficulty. The patient tolerated the procedure well. Findings: A small hiatal hernia was present. There were esophageal mucosal changes secondary to established short-segment Gaspar's disease present in the distal esophagus. The maximum longitudinal extent of these mucosal changes was 1 cm in length. Mucosa was biopsied with a cold forceps for histology. One specimen bottle was sent to pathology. The stomach was normal. The cardia and gastric fundus were normal on retroflexion. The examined duodenum was normal. Procedure Code(s): --- Professional --- 95123, Esophagogastroduodenoscopy, flexible, transoral; with biopsy, single or multiple Diagnosis Code(s): --- Professional --- K44.9, Diaphragmatic hernia without obstruction or gangrene K22.70, Gaspar's esophagus without dysplasia CPT copyright 2020 [employer]. All rights reserved. The codes documented in this report are preliminary and upon money order clerk review may be revised to meet current compliance requirements. Ailyn Gray MD 11/02/2024 7:44:28 AM This report has been signed electronically.Ailyn Gray MD Number of Addenda: 0 Note Initiated On: 11/02/2024 7:35 AM Scope In: Scope Out: Endoscopy Department at [facility] - [address] [place] [phone] Procedure Note Ailyn Gray MD - 11/02/2024 [facility] GI Patient Name: Almtia Yoo Procedure Date: 11/02/2024 7:35 AM Date of : 1955 Age: 69 Gender: Female Note Status: Finalized Attending MD: Ailyn Gray MD, Procedure Date No Time: 11/02/2024 Procedure: Upper GI endoscopy Indications: Surveillance for malignancy due to personal historyof Gaspar's esophagus Providers: Ailyn Gray MD Referring MD: Sowmya Solorio NP Medicines: Propofol per Anesthesia Complications: No immediate complications. Estimated Blood Loss: Estimated blood loss: none. Procedure: Pre-Anesthesia Assessment: - ASA Grade Assessment: II - A patient with mild systemic disease. After obtaining informed consent, the endoscope was passed under direct vision. Throughout theprocedure, the patient's blood pressure, pulse, and oxygen saturations were monitored continuously.TheEndoscope was introduced through the mouth, and advanced tothe second part of duodenum. The upper GI endoscopy was accomplished without difficulty. The patienttolerated the procedure well. Findings: A small hiatal hernia was present. There were esophageal mucosal changes secondary to established short-segment Agspar's disease presentin the distal esophagus. The maximum longitudinalextent of these mucosal changes was 1 cm in length. Mucosa was biopsied with a cold forceps for histology. One specimen bottle was sent to pathology. The stomach was normal. The cardia and gastric fundus were normal on retroflexion. The examined duodenum was normal. Procedure Code(s): --- Professional --- 62051, Esophagogastroduodenoscopy, flexible, transoral; with biopsy, single or multiple Diagnosis Code(s): --- Professional --- K44.9, Diaphragmatic hernia without obstruction or gangrene K22.70, Gaspar's esophagus without dysplasia CPT copyright 2020 [employer]. All rights reserved. The codes documented in this report are preliminary and upon money order clerk reviewmay be revised to meet current compliance requirements. Ailyn Gray MD 11/02/2024 7:44:28 AM This report has been signed electronically.Ailyn Gray MD Number of Addenda: 0 Note Initiated On: 11/02/2024 7:35 AM Scope In: Scope Out: Endoscopy Department at [facility] - [address] [place] [phone] IMPRESSION: - Small hiatal hernia. - Esophageal mucosal changes secondary toestablished short-segment Gaspar's disease. Biopsied. - Normal stomach. - Normal examined duodenum. Recommendation: - Continue present medications. - Await pathology results. Ailyn Gray MD GI~PROCEDURE ORDERABLES Final Result * Tissue exam (11/02/2024 7:40 AM EDT) Final Diagnosis A. Esophagus, distal, biopsies: Gaspar's esophagus. Negative for dysplasia. B. Ascending Colon, polyps x 3: Tubular adenomas, fragmented. C. Transverse Colon, polyps x 2: Two tubular adenomas. 11/03/2024 10:49 AM EDT [facility] Gross Description A. Esophagus, distal biopsies/gaspar s: Labeled distal esophagus . Received in formalin are two soft to rubbery, white-pink to red tissue fragments, approximately measuring 0.3 cm and 0.4 cm in greatest diameters, which are wrapped in paper and submitted in toto in one cassette, two pieces, multiple levels. B. Large Intestine, Right/Ascending Colon, polyp x3: Labeled ascend colon polyp x 3 . Received in formalin, are seven irregular soft to rubbery, solano tissue fragments, approximately ranging from 0.2 cm to 0.6 cm in greatest diameters, which are wrapped in paper and submitted in toto in one cassette, seven pieces, multiple levels. C. Large Intestine, Transverse Colon, polyp x2: Labeled trans colon polyp x 2 . Received in formalin are two soft to rubbery, solano-pink tissue fragments, approximately measuring 0.35 cm and 0.5 cm in greatest diameters, inked green at the margin, which are wrapped in paper and submitted in toto in one cassette, two pieces, multiple levels. hs/DG 11/03/2024 10:49 AM EDT [facility] Disclaimer Unless otherwise specified, all tissue is 10% NB formalin fixed and paraffin embedded. 11/03/2024 10:49 AM EDT [facility] Tissue Esophageal structure / Unknown 11/02/2024 7:40 AM EDT 11/02/2024 10:11 AM EDT Tissue specimen (specimen) Ascending colon structure / Unknown 11/02/2024 7:50 AM EDT 11/02/2024 10:11 AM EDT Tissue specimen (specimen) Transverse colon structure / Unknown 11/02/2024 7:53 AM EDT 11/02/2024 10:11 AM EDT Ailyn Gray MD LAB PATHOLOGY ORDERABLES Final Result [facility] [address] [place] [address], * (ABNORMAL) CBC auto differential (10/29/2024 3:58 PM EDT) WBC 7.7 4.8 - 10.8 K/mcL LAB HEMETOLOGY METHOD 10/29/2024 6:27 PM EDT [facility] RBC 4.90(H) 3.80 - 4.80 M/mcL LAB HEMETOLOGY METHOD 10/29/2024 6:27 PM EDT [facility] Hemoglobin 12.8 11.5 - 16.0 g/dL LAB HEMETOLOGY METHOD 10/29/2024 6:27 PM EDT [facility] Hematocrit 41.1 35.0 - 47.0 % LAB HEMETOLOGY METHOD 10/29/2024 6:27 PM EDT [facility] MCV 83.4 79.0 - 98.0 FL LAB HEMETOLOGY METHOD 10/29/2024 6:27 PM EDT [facility] MCH 26.0(L) 27.0 - 32.0 pcg LAB HEMETOLOGY METHOD 10/29/2024 6:27 PM EDT [facility] MCHC 31.1(L) 32.0 - 37.0 g/dL LAB HEMETOLOGY METHOD 10/29/2024 6:27 PM EDT [facility] RDW 19.9(H) 11.0 - 15.0 % LAB HEMETOLOGY METHOD 10/29/2024 6:27 PM EDT [facility] Platelets 242 130 - 400 K/mcL LAB HEMETOLOGY METHOD [facility] MPV 9.5 7.0 - 11.0 FL LAB HEMETOLOGY METHOD 10/29[facility]2024 6[facility] NRBC 0.0 <1.0 % LAB HEMETOLOGY METHOD 10/29[facility]2024 6[facility] NRBC Absolute 0.00 <0.10 K/mcL LAB HEMETOLOGY METHOD 10/29/2024 6:27 PM [facility] Neutrophils Relative 51.7 % LAB HEMETOLOGY METHOD 10/29/2024 6:27 PM [facility] Lymphocytes Relative 33.5 % LAB HEMETOLOGY METHOD 10/29/2024 6:27 PM [facility] Monocytes Relative 11.4 % LAB HEMETOLOGY METHOD 10/29/2024 6:27 PM [facility] Eosinophils Relative 2.1 % LAB HEMETOLOGY METHOD 10/29/2024 6:27 PM [facility] Basophils Relative 0.9 % LAB HEMETOLOGY METHOD 10/29/2024 6:27 PM [facility] Immature Granulocytes Relative 0.4 % LAB HEMETOLOGY METHOD 10/29/2024 6:27 PM [facility] Neutrophils Absolute 4.00 1.50 - 7.00 K/mcL LAB HEMETOLOGY METHOD 10/29/2024 6:27 PM [facility] Lymphocytes Absolute 2.59 1.00 - 5.00 K/mcL LAB HEMETOLOGY METHOD 10/29/2024 6:27 PM [facility] Monocytes Absolute 0.88 0.20 - 1.00 K/mcL LAB HEMETOLOGY METHOD 10/29/2024 6:27 PM EDT [facility] Eosinophils Absolute 0.16 0.00 - 0.50 K/[facility] LAB HEMETOLOGY METHOD 10/29/2024 6:27 PM EDT [facility] Basophils Absolute 0.07 0.00 - 0.20 K/[facility] LAB HEMETOLOGY METHOD 10/29/2024 6:27 PM EDT [facility] Immature Granulocytes Absolute 0.03 0.00 - 0.03 K/[facility] LAB HEMETOLOGY METHOD 10/29/2024 6:27 PM EDT [facility] Blood Venous blood specimen / Unknown Venipuncture / Unknown 10/29/2024 3:58 PM EDT 10/29/2024 3:58 PM EDT Submonika Nelson MD LAB BLOOD ORDERABLE S Final Result Performing Organization Address City/[facility]/ZIP Co de Phone Number [facility] [address] [place] [address], [place] [phone] * Iron and TIBC (10/29/2024 3:58 PM EDT) Iron 88 40 - 150 mcg/dL LAB CHEMISTRY METHOD 10/29/2024 7:44 PM EDT [facility] TIBC 306 250 - 450 mcg/dL LAB CHEMISTRY METHOD 10/29/2024 7:44 PM EDT [facility] Iron Saturation 29 15 - 50 % LAB CHEMISTRY METHOD 10/29/2024 7:44 PM EDT [facility] Blood Venous blood specimen / Unknown Venipuncture / Unknown 10/29/2024 3:58 PM EDT 10/29/2024 3:58 PM EDT Submonika Nelson MD LAB BLOOD ORDERABLE S Final Result [facility] [address] [place] [address], [place] [phone] * Ferritin (10/29/2024 3:58 PM EDT) [facility] Ferritin 31 8 - 252 ng/mL LAB CHEMISTRY METHOD 10/29/2024 7:27 PM EDT [facility] Blood Venous blood specimen / Unknown Venipuncture / Unknown 10/29/2024 3:58 PM EDT 10/29/2024 3:58 PM EDT Bubba Nelson MD LAB BLOOD ORDERABLE S Final Result [facility] [address] [place] [address], [place] [phone] * Comprehensive metabolic panel (10/29/2024 3:58 PM EDT) [facility] Sodium 136 133 - 145 mmol/L LAB CHEMISTRY METHOD 10/29/2024 7:27 PM [facility] Potassium 4.1 3.5 - 5.5 mmol/L LAB CHEMISTRY METHOD 10/29/2024 7:27 PM [facility] Chloride 104 96 - 110 mmol/L LAB CHEMISTRY METHOD 10/29/2024 7:27 PM [facility] CO2 25 21 - 32 mmol/L LAB CHEMISTRY METHOD 10/29/2024 7:27 PM [facility] Anion Gap 7 3 - 11 LAB CHEMISTRY METHOD 10/29/2024 7:27 PM [facility] Glucose 94 70 - 100 mg/dL LAB CHEMISTRY METHOD 10/29/2024 7:27 PM [facility] BUN 16 5 - 25 mg/dL LAB CHEMISTRY METHOD 10/29/2024 7:27 PM [facility] Creatinine 0.99 0.50 - 1.10 mg/dL LAB CHEMISTRY METHOD 10/29/2024 7:27 PM [facility] eGFR 62 >=60 mL/min/1. 73m2 LAB CHEMISTRY METHOD 10/29/2024 7:27 PM [facility] Comment:Calculation based on the Chronic Kidney Disease Epidemiology Collaboration (CKD-EPI) equation refit without adjustment for race. BUN/Creatinine Ratio 16.2 LAB CHEMISTRY METHOD 10/29/2024 7:27 PM [facility] Calcium 9.3 8.5 - 10.5 mg/dL LAB CHEMISTRY METHOD 10/29/2024 7:27 PM [facility] AST (SGOT) 24 10 - 42 unit/L LAB CHEMISTRY METHOD 10/29/2024 7:27 PM [facility] ALT (SGPT) 27 10 - 60 unit/L LAB CHEMISTRY METHOD 10/29/2024 7:27 PM [facility] Alkaline Phosphatase 93 42 - 121 unit/L LAB CHEMISTRY METHOD 10/29/2024 7:27 PM [facility] Total Protein 7.0 6.0 - 8.0 g/dL LAB CHEMISTRY METHOD 10/29/2024 7:27 PM [facility] Albumin 3.8 3.2 - 5.0 g/dL LAB CHEMISTRY METHOD 10/29/2024 7:27 PM [facility] Total Bilirubin 0.7 0.0 - 1.4 mg/dL LAB CHEMISTRY METHOD 10/29/2024 7:27 PM [facility] Blood Venous blood specimen / Unknown Venipuncture / Unknown 10/29/2024 3:58 PM EDT 10/29/2024 3:58 PM EDT us Bubba Nelson MD LAB BLOOD ORDERABLE S Final Result [facility] [address] [place] [address], from Last 3 Months Insurance [facility] [employer] Member Subscriber Plan / Payer (Ef fective 2022-Present) Name:Emily Yoo Relation to Subscriber:Self Name:Emily Yoo Payer ID:[id number] Group ID:Not on file Type:Not on file Address: [place] [address] [place] [id number] Care Teams 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
[2025-01-06 14:02] VITALS: BMI 25.0
--- NOTE | ~2025-01-08 | FL_ITS ---
EXAMINATION: FL GUIDANCE ONLY HISTORY: SPINAL CORD STIMULATOR TRIAL COMPARISON: None available. TECHNIQUE: Fluoroscopy time: 6 minutes, 26.3 seconds. Cumulative Dose: 133.90 mGy. DAP: 31.595 mGym2 Images: 5. FINDINGS: Fluoroscopic spot films of the thoracic spine demonstrate a stimulator in place with the tip of the lead at the level of the superior endplate of T7. FL/FL guidance in OR IMPRESSION: Fluoroscopy during procedure. Please see procedure report for additional information. Electronically signed by: Lazaro Bhagat MD 01/08/2025 01:41 PM EDT
[2025-01-08 09:16] VITALS: BMI 24.6
[2025-01-08 09:33] VITALS: BP 128/88; PULSE 77; RESP 20; TEMP 36.4; O2SAT 95
--- NOTE | 2025-01-08 11:32 | MHC.SHP ---
Pre-Procedural Eval Section A - 24 Hr Update-Section A only Date of Service: 01/08/25 The patient is an INPATIENT: No Changes since office visit: Yes Patient answered all questions The patient has been examined within 24 hours of the surgical procedure. The History & Physical has been completed within 30 days and I have reviewed it.: No Section B - Complete if H&P > 30 days Chief Complaint: Radiculopathy, lumbar region,low back pain Details of Present Illness: as above Relevant Family History (Specify if Yes): No Relevant Social History: None Present Medications: see Short Stay Collaborative assessment Medical History: No relevant PMH History of Previous Operations: No relevant previous surgery Allergies: Allergies Allergy/AdvReac Type Severity Reaction Status Date / Time sulfamethoxazole (From Allergy Mild Hives Verified 08/14/24 14:49 Bactrim) trimethoprim (From Bactrim) Allergy Mild Hives Verified 08/14/24 14:49 morphine AdvReac Severe CAN NOT Verified 08/14/24 14:49 CONTROL BEHAVIOR Review of Systems Sugical H&P ROS: Negative: Constitution, Cardiovascular, Respiratory, Neurological, Psychiatric, Hem-Onc, Allergic/Immunologic, Gastrointestinal, Genitourinary, Integumentary, Endocrine and Eyes/Ears/Nose/Throat and Yes, Specify: Musculoskeletal (Chronic pain syndrome, intractable low back pain, disc degeneration lumbar) Exam Surgical H&P Exam: Normal: HEENT, Normal: Heart, Normal: Lungs, Normal: Extremities, Normal: Abdomen, Normal: Skin and Normal: Neurological Plan Diagnosis/Plan: Unchanged I have reviewed the history and physical and performed a pertinent physical examination on my patient. No changes have occurred unless specified. Time Spent With Patient Time: Total time managing care of this patient today ____ minutes.
[2025-01-08 13:30] VITALS: BP 119/80; PULSE 66; RESP 20; TEMP 36.9; O2SAT 98
--- NOTE | 2025-01-08 13:36 | P.BOP_ITS ---
Brief Operative Note Date of Service: 01/08/25 Pre-op diagnosis: Chronic pain syndrome Post-op diagnosis: same Procedure: [place] scientific spinal cord stimulator trial. Surgeon: Ivan Sosa MD Anesthesia: local Was an Comfort Station Attendant used for this Procedure?: No Estimated blood loss (mL): 2 Pathology: none sent Condition: stable Disposition: PACU
--- NOTE | 2025-01-08 13:39 | W.PM.OPN ---
Operative Note Operative Note Date of Service: 01/08/25 Narrative: Trial of [place] scientific spinal cord stimulator. ?Preoperatively patient received ? cefazolin 2 g approximately 20 minutes before the incision. The patient received no anesthesia today because of the Anesthesiology department's concerns about her cardiac status. Before the procedure she was administered oxycodone 10 mg p.o. and Benadryl 50 mg p.o.. After obtaining informed consent where risks and benefits as well as alternatives were explained to the patient including risk of bleeding, infection, peripheral nerve damage, spinal cord damage and headache, the patient was taken to the operating room. She was positioned prone on operating table. ?Time-out was performed delineating correct site, side, the nature of the procedure, patient's allergy, preoperative antibiotic if needed.? All operating room staff was participating in OR time-out procedure. Patient's entire back was prepped with Chloraprep twice and draped with full body fenestrated laparoscopy drape.? Sterilely draped C-arm was brought over operating field and square picture of the T12, L1, L2 vertebrae? were demonstrated on the screen.?The position of the C-arm during the case was adjusted appropriately to receive images as close to sq as possible. ?Attention FIRST? was concentrated on the T12-L1 epidural interspace. Location of the projection of the right pedicle pedicle center of the L2 vertebra was found on the skin using C-arm.? This location was injected with mixture of lidocaine 2% and Marcaine 0.5% 5 cc.? After that 11 blade was used to make a jostin on the skin.? 10 cm 14 gauge introducer epidural needle was inserted through the jostin and advanced to T12-L1 epidural interspace.? The advancement of the needle was performed on anterior posterior and lateral views.? Guitar wire and loss of resistance to air technique were used to locate epidural space.? When guitar wire was spread in the epidural fashion, epidural lead was inserted through the needle. After the the epidural lead advanced into the posterior epidural space and advanced to the T7 epidural interspace, the advancement was rather difficult with significant amount of epidural adhesions at the projection of the T12 and T11 electrodes. Position of the lead in posterior epidural space was verified by C-arm. After that attention was concentrated on T12-T11 epidural space again from the left side. Location of the projection of the left pedicle center of the L2 vertebra was found on skin using C-arm. This location was injected with mixture of lidocaine 2% and Marcaine 0.5% 5 cc. After that 11 blade was used to make a jostin on the skin. 10 cm 14 gauge introducer epidural needle was inserted through the jostin and advanced to T12-L1 epidural interspace. The advancement of the needle was performed on anterior posterior and lateral views. Guitar wire and loss of resistance to air technique were used to locate the epidural space. When guitar wire was spread in the epidural fashion epidural lead was inserted through the needle. After that epidural lead was advanced into the posterior epidural space and considering that right-sided insertion electrode was positioned slightly to the left in the epidural space this electrodes was crossed over and positioned slightly to the right to the existing electrode. It was advanced to T7 epidural interspace. Again lateral view image was obtained demonstrating the leads in posterior epidural space. After that the epidural leads were connected to the testing device and testing was performed by [employer] underwriting account representative. He was satisfied with leads positioned. After that the needles were removed under x-ray guidance with care taken not to dislodge the epidural leads. Epidural stylettes were also removed from the leads. The anchoring devices were dislodged over the epidural leads to the level of the skin, each 1 of them was sutured to the skin using 0-0 silk needle. Two sutures were required per each anchor. After that anchoring screws were clicked on each anchoring device until 3 clicks were heard. After that a sterile dressing was applied and the electrodes were connected to testing device. Testing device and the dressing were taped to the skin using Medipore tape. The patient tolerated the procedure well. She was taken outside of the operating room to PACU where she recovered uneventfully.
== END 2025-01-08 15:27 | disposition home or self-care (01) ==
PROVIDERS: PCP Nurse Practitioner; Visit Provider Anesthesiology
PROC: (CPT 63650; principal; 2025-01-08 10:50)
DX: M47.26 Other spondylosis with radiculopathy, lumbar region (principal); M54.59 Other low back pain; M51.16 Intervertebral disc disorders with radiculopathy, lumbar region; M51.369 Other intervertebral disc degeneration, lumbar region without mention of lumbar back pain or lower extremity pain; G89.4 Chronic pain syndrome; G96.12 Meningeal adhesions (cerebral) (spinal); R07.9 Chest pain, unspecified; G58.8 Other specified mononeuropathies; E78.00 Pure hypercholesterolemia, unspecified; E83.119 Hemochromatosis, unspecified; J44.9 Chronic obstructive pulmonary disease, unspecified; Z88.5 Allergy status to narcotic agent; Z88.2 Allergy status to sulfonamides; Z98.890 Other specified postprocedural states; Z87.891 Personal history of nicotine dependence
CPT/HCPCS: 63650 ×2; C1889; C1897; J0690; J2003; J2795

== ENCOUNTER → 2025-01-08 09:14 | Outpatient (BNV) | payer OTHER, SELFPAY | PROVIDERS: PCP Nurse Practitioner; Visit Provider Anesthesiology | DX: G89.4 Chronic pain syndrome (principal) | CPT/HCPCS: 63650 ==

== ENCOUNTER 2025-01-15 10:57 | Outpatient (AMB) | payer OTHER, SELFPAY ==
--- NOTE | 2025-01-15 10:59 | MHC.OFFVIS ---
Vital Signs 01/15/25 11:03 Height 5 ft 6 in Weight 150 lb BMI 24.2 BP 144/70 H Blood Pressure Location Rt brachial Position Sitting Pulse 85 Pulse Source Pulse Oximeter Pulse Oximetry (%) 96 Oxygen Delivery Method Room Air Intake Visit Reasons: S/p [place] Sci SCS Trial 01/08/25 Intake Note: Pain today 12/24 Locomotive Firer/Fireman Required: No Accompanied by: Self / Same As Patient Allergies sulfamethoxazole (From Bactrim) Allergy (Mild, Verified 01/15/25 11:04) Hives trimethoprim (From Bactrim) Allergy (Mild, Verified 01/15/25 11:04) Hives morphine Adverse Reaction (Severe, Verified 01/15/25 11:04) CAN NOT CONTROL BEHAVIOR HPI Comments Details: The patient is a 69-year-old female presenting with postoperative evaluation following [employer] lumbar spinal cord stimulator trial. The patient underwent a lumbar spinal cord stimulator trial to manage chronic back and leg pain, particularly targeting neuropathic and radiculopathy-related pain. The trial provided approximately 50% relief for nerve pain, particularly in the legs, although the back pain remained significant. The patient reports that the stimulator trial did not significantly alleviate arthritic back pain. She experienced some improvement in nerve pain, with the left foot initially being more affected, but later the right foot also experienced pain relief. Reprogramming of the stimulator was performed mid-week to enhance pain relief in the hips and back, which improved the patient's condition by the end of the week. The patient describes postoperative pain at the site of the stimulator leads, particularly noting discomfort from the lead placement on the spine. She reports no adverse effects from the stimulator itself, although there was some itchiness and sensitivity due to the tape used at the surgical site. The surgical site shows no signs of infection, with no drainage, warmth, or swelling observed. - Pain level reported as 7/10, primarily in the back - Nerve pain in the legs improved by approximately 50% with the stimulator - Arthritic pain not significantly relieved by the stimulator - Postoperative pain at the site of the stimulator leads, particularly on the spine - Affect: No specific impact on mood or psychological wellbeing discussed - Analgesia: Current pain level is 7/10; tramadol and ibuprofen are used for pain management - Adverse Effects: No adverse effects from the stimulator; some itchiness and sensitivity due to tape - Activities of Daily Living: Some improvement in walking and daily activities noted - Aberrant Drug Related Behaviors: No signs of medication abuse or misuse discussed Past Procedure: 01/08/25: [employer] scientific lumbar spinal cord stimulator trial-50% pain relief 07/23/23: Bilateral L5-S1 TFESI-100% pain relief for right side, 40-50% pain relief for left side 04/05/23: Bilateral Therapeutic SIJ injections-0% pain relief 08/03/22: Left SIJ steroid injection-80% pain relief for 4 weeks 07/28/21: Bilateral L4-L5, L5-S1 facet therapeutic injections-0% pain relief PRIOR: Patient presents today to request a repeat of the sacroiliac joint injection. She requests me to perform bilateral sacroiliac joint injection. She complains on multiple widespread all body pain as well. She reports pain in the right shoulder, pain in bilateral hands, pain in bilateral lower extremities. She tried diclofenac however she cannot use diclofenac as much as she wants to because it effects children around her and her animals. I recommend her to were gloves when and after she applies diclofenac to herself. She tried meloxicam however meloxicam causes skin bruising on her. I recommend her to try vitamin P in combination with meloxicam it probably can help for her pain. And the past she reported 80% pain relief for 4 weeks after procedure with notable increase in her mobility, functioning, better sleep and better social interactions. Patient continues to endorse multiple joint pain especially in her both hands. She also presents with mild to moderate right sided SIJ pain and requests to repeat bilateral therapeutic SIJ injections with sedation. Her pain is localized in lower back extending to both upper buttocks and lateral hips with intermittent radiation of pain into her left groin. She will be scheduled for bilateral sacroiliac joint injection under sedation. She requests me to put her on opioid program here. I explained to her that due to staffing shortage we cannot put her on opioid program. I had explained to her that the longer she is staying on opioids chronically the worse her pain will become not better. I recommended her that her psychiatrist which prescribes her her antidepressant will attempt to switch her to amitriptyline or sertraline. She complains of cervicalgia I recommended her to get engaged with physical therapy. I will refer her for physical therapy. Past Procedure: 08/03/22: Left SIJ steroid injection-80% pain relief for 4 weeks 07/28/21: Bilateral L4-L5, L5-S1 facet therapeutic injections-0% pain relief PRIOR: Patient is a pleasant 66 years old female who has been previously seen in this office by Dr. Sosa. She presents today to assess response to bilateral facet joint therapeutic injections L4-L5 and L5-S1 on 07/28/21 under sedation. Patient reports previous injection on 07/28/21 provided her 0% pain relief. Prior to that, she had same injection on 04/27/2021 with 90% pain relief. Patient reports her mobility has decreased, with walking for any distance and standing over 10-15 minutes exacerbates her axial pain that goes across her lower back and her bilateral hip. We reviewed her MRI lumbar from 09/2020 that was significant for a large central disc osteophyte protrusion continues to compress the traversing S1 nerve roots within the subarticular zones bilaterally at L5-S1 level, and multifactorial degenerative changes result in stable moderate to severe bilateral foraminal stenosis with mass effect on the exiting L5 nerve roots bilaterally. Also, at L4-L5, a broad-based central disc protrusion continues to compress the traversing L5 nerve roots within the subarticular zones bilaterally. Patient competed physical therapy a year ago with very minimal improvements. Patient reports her neck pain has been most troublesome now that causes her significant headaches and muscle spasms. She reports history of anterior cervical fusion using titanium at C5-6 at [facility] over 20 years ago. She does not recall if she had any cervical injections since surgery. She has been regularly seen by Dr. Johnson and had cervical imaging completed at [facility]. She presents with painful cervical ROM, especially with extension, flexion, and right lateral bending. Patient denies any fever, abdominal or groin pain, numbness, tingling, dizziness, chest pain, weight changes, bladder/bowel dysfunction or saddle anesthesia. She reports intermittent weakness. 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 Surgical History H/O shoulder surgery Hx of cervical spine surgery History of surgery Family History Father Heart disease Mother Lung cancer Other Family history of osteoarthritis Social History Alcohol intake: current Alcohol intake frequency: does not drink Comment: chronic Patient Tobacco Use Status: Former Tobacco user Tobacco use type: Cigarette Review of Systems Const All systems reviewed & are unremarkable except as noted in HPI and below Physical Exam Vital Signs: Last Vital Signs Pulse 85 01/15/25 11:03 BP 144/70 H 01/15/25 11:03 Pulse Ox 96 01/15/25 11:03 Oxygen Delivery Method Room Air 01/15/25 11:03 BMI result Body Mass Index 24.2 General: Appears afebrile. Alert and oriented. Mood and affect appropriate. Follows and participates in conversation appropriately. Respiratory effort is unlabored. No cough. Able to transition from sit to stand unassisted. Ambulates with bilaterally normal heel strike and toe off, reports increased pain with toes standing, L>R. General: Yes no CVA tenderness Back/Spine/Pelvis Other: Trial leads pulled out with tip intact. Site looks clean dry intact. No pathological discharge, redness, swelling, erythema or tenderness. Site dressed with bacitracin and Tegaderm following lead removal. Back: no CVA tenderness Cervical Spine: cervical muscular tenderness, pain with cervical ROM, No Cervical spine tenderness and No step off deformity Thoracic/Lumbar Spine: thoracic and lumbar spine normal to inspection, Thoracic/lumbar spine scar(s), pain with thoraco-lumbar ROM, paraspinal muscle tenderness, No thoracic spinal tenderness and lumbar spinal tenderness at L4 and at L5 Pelvis: buttock tenderness bilaterally Sacroiliac joints: bilaterally tender to palpation Assessment & Plan Assessment & Plan (1) Spondylosis of lumbar spine: Code(s): M47.816 - Spondylosis without myelopathy or radiculopathy, lumbar region Category: Medical (2) Sacroiliac joint pain: Code(s): M53.3 - Sacrococcygeal disorders, not elsewhere classified Category: Medical (3) Lumbar degenerative disc disease: Code(s): M51.36 - Other intervertebral disc degeneration, lumbar region Category: Medical (4) Lumbar radiculopathy: Code(s): M54.16 - Radiculopathy, lumbar region Category: Medical (5) Bilateral hip pain: Code(s): M25.551 - Pain in right hip; M25.552 - Pain in left hip Category: Medical (6) Intractable low back pain: Code(s): M54.59 - Other low back pain Category: Medical (7) Chronic pain syndrome: Code(s): G89.4 - Chronic pain syndrome Category: Medical Plan The patient is advised to monitor pain levels after the removal of the spinal cord stimulator trial leads. She is encouraged to assess the difference in pain management without the stimulator and report back on Saturday. If the patient decides to proceed with the permanent implant, the same procedure will be followed, with leads placed in the same location and a small incision made for the battery placement. Expectations, risks and benefits were reviewed. The patient is informed that the battery for the implant typically lasts 10 to 12 years, and adjustments can be made as needed over time. Postoperative care will include antibiotics, abdominal brace, temporary activity modifications and pain management, with the device gradually adjusted to full capacity after healing. All questions and concerns have been answered and patient agreed with the plan. Follow up as needed. Patient was informed and verbally consented to the use of an ambient scribe for clinic note documentation during this visit. Patient Instructions: I discussed with the patient the outcomes of the spinal cord stimulator trial, noting the partial relief of nerve pain and the lack of significant impact on arthritic pain. We reviewed the plan to remove the trial leads and assess pain levels without the stimulator, with a follow-up scheduled for Saturday to decide on the permanent implant. I explained the procedure for the permanent implant, including risks and benefits, the placement of leads and battery, and the expected lifespan of the battery. The patient was informed about postoperative care, including antibiotics, activity limitations, wearing brace and pain management, and the gradual adjustment of the device to full capacity. Coding Level of Care Code Est Pt Level 3 (52393) Complex EM visit Add On G2211 Diagnoses Spondylosis of lumbar spine M47.816 Sacroiliac joint pain M53.3 Lumbar degenerative disc disease M51.36 Lumbar radiculopathy M54.16 Bilateral hip pain M25.551; M25.552 Intractable low back pain M54.59 Chronic pain syndrome G89.4
[2025-01-15 11:03] VITALS: BP 144/70; PULSE 85; O2SAT 96; BMI 24.2
--- OUTSIDE RECORDS SUMMARY | 2025-01-15 11:04 | XMS_ITS | Clinical Summary ---
Author Organization [facility] Address [address] [place] [address] Phone Care Team Providers Care Maintenance Mechanic Engine Name Role Phone Sowmya Solorio BEE BREEDER Primary Care Provider [phone] Allergies Active Allergy Reactions Criticality Noted Date [...] Problem Noted Date Diagnosed Date Hereditary hemochromatosis ([facility] V24) 025 Anxiety disorder 04/30/2024 Depression 04/30/2024 Emphysema/COPD ([facility] V24, [facility] V28) 2023 Multiple pulmonary nodules 04/30/2024 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/2024 Thoracic spine pain 10/25/2010 Cervicocranial syndrome 10/18/2010 Degenerative arthritis of cervical spine 011 Radiculitis, cervical 08/10/2010 Hand pain 04/24/2010 Radiculitis, lumbosacral 09/28/2009 Fibromyalgia 07/29/2009 Neck pain 07/29/2009 Low back pain 07/29/2009 Encounters Date Type Department Care Team Description 11/23/2024 Telephone Gastroenterology - [address] [place] [phone] Ailyn Gray MD 11/19/2024 3:00 PM EDT Office Visit [facility] Hematology Oncology [address] [place] [phone] Bubba Gordon MD Hereditary hemochromatosis ([facility] V24) (Primary Dx); Iron deficiency anemia due to chronic blood loss 11/03/2024 Telephone Gastroenterology - [address] [facility] [address] [place] [phone] Rossy Martin [place] 11/02/2024 7:33 AM EDT Anesthesia Event [facility] Endoscopy [address] [place] [phone] Walter Smith MD 11/02/2024 6:56 AM EDT - 11/02/2024 11:59 PM EDT Hospital Encounter [facility] Endoscopy [address] [place] [phone] Ailyn Gray MD Chang, Ling, CRNA GERD (gastroesophageal reflux disease); Constipation, unspecified constipation type Discharge Disposition: Home or Self Care from Last 3 Months Surgical History Surgery Date Site/Laterality Comments OTHER SURGICAL HISTORY 2000 PROCEDURE: MN LAMOT PRTL FFD EXC DISC REEXPL 1 NTRSPC CERVICAL OTHER SURGICAL HISTORY 2011 Left PROCEDURE: [place] SURGICAL ARTHROSCOPY SHOULDER LMTD DBRDMT / ESOPHAGOGASTRODUODENOSCOPY 08/22/2021 3 year recall h/o barretts COLONOSCOPY 08/22/2021 3 year recall phx polyps COLONOSCOPY 09/06/2015 3 year recall ESOPHAGOGASTRODUODENOSCOPY 01/02/2012 TOTAL SHOULDER ARTHROPLASTY Left Medical History Medical History Date Comments COPD (chronic obstructive pu lmonary disease) ([facility] V24, [facility] V28) DX:COPD (chronic o bstructive pulmonary disease) (HCC) Hyperlipidemia DX:Hyperlipidemi a Depression DX:Depression Anxiety DX:Anxiety [...] Office Visit [facility] Hematology Oncology [address] [place] [phone] Bubba Nelson MD [address] [place] [address] Health Maintenance Due Date Last [...] 07/28/2020 07/28/2019 Cholesterol Screening (Lipid Panel) 05/16/2022 Falls Risk Assessment 05/16/2022 Hepatitis C Screening 05/16/2022 Medicare Annual Wellness Visit 05/16/2022 Osteoporosis Screening (Bone Density Screening) 05/16/2022 Social Influencers of Health Screening 05/16/2022 COVID-19 Vaccine (1 - 2023-2 5 season) 2024 Depression Screening 06/17/2024 Influenza Vaccine (#1) 2025 03/03/2010 Colorectal Cancer [...] 3 Months Results * [place] [facility] [facility] ENDOSCOPY (11/02/2024 7:59 AM EDT) Anatomical Region [...] not prolapse). Procedure Code(s): --- Professional --- 66394, Colonoscopy, flexible; with removal of tumor(s), polyp(s), or other lesion(s) by snare technique Diagnosis Code(s): --- Professional --- Z86.010, Personal history of colonic polyps D12.2, Benign neoplasm of ascending colon D12.3, Benign neoplasm of transverse colon (hepatic flexure or splenic flexure) CPT copyright 2020 [employer]. All rights reserved. The codes documented in this report are preliminary and upon woodwind instrument repairer review may be revised to meet current compliance requirements. Ailyn Gray MD 11/02/2024 8:00:43 AM This report has been signed electronically.Ailyn Gray MD Number of Addenda: 0 Note Initiated On: 11/02/2024 7:44 AM Scope In: Scope Out: Endoscopy Department at [facility] - [address] [place] [phone] Procedure Note Ailyn Gray MD - 11/02/2024 [...] not prolapse). Procedure Code(s): --- Professional --- 74927, Colonoscopy, flexible; with removal of tumor(s), polyp(s), or other lesion(s) by snare technique Diagnosis Code(s): --- Professional --- Z86.010, Personal history of colonic polyps D12.2, Benign neoplasm of ascending colon D12.3, Benign neoplasm of transverse colon (hepatic flexure or splenic flexure) CPT copyright 2020 [employer]. All rights reserved. The codes documented in this report are preliminary and upon woodwind instrument repairer reviewmay be revised to meet current compliance requirements. Ailyn Gray MD 11/02/2024 8:00:43 AM This report has been signed electronically.Ailyn Gray MD Number of Addenda: 0 Note Initiated On: 11/02/2024 7:44 AM Scope In: Scope Out: Endoscopy Department at [facility] - [address] [place] [phone] IMPRESSION: - The examined portion of the [...] Final Result * EGD Anesthesia - MAC; [facility] ENDOSCOPY (11/02/2024 7:59 AM EDT) Anatomical Region [...] was normal. Procedure Code(s): --- Professional --- 09354, Esophagogastroduodenoscopy, flexible, transoral; with biopsy, single or multiple Diagnosis Code(s): --- Professional --- K44.9, Diaphragmatic hernia without obstruction or gangrene K22.70, Gaspar's esophagus without dysplasia CPT copyright 2020 [employer]. All rights reserved. The codes documented in this report are preliminary and upon woodwind instrument repairer review may be revised to meet current compliance requirements. Ailyn Gray MD 11/02/2024 7:44:28 AM This report has been signed electronically.Ailyn Gray MD Number of Addenda: 0 Note Initiated On: 11/02/2024 7:35 AM Scope In: Scope Out: Endoscopy Department at [facility] - [address] [place] [phone] Procedure Note Ailyn Gray MD - 11/02/2024 [...] changes secondary to established short-segment Gaspar's disease presentin the distal esophagus. The maximum longitudinalextent of these mucosal changes was 1 cm in length. Mucosa was biopsied with a cold forceps for histology. One specimen bottle was sent to pathology. The stomach was normal. The cardia and gastric fundus were normal on retroflexion. The examined duodenum was normal. Procedure Code(s): --- Professional --- 87800, Esophagogastroduodenoscopy, flexible, transoral; with biopsy, single or multiple Diagnosis Code(s): --- Professional --- K44.9, Diaphragmatic hernia without obstruction or gangrene K22.70, Gaspar's esophagus without dysplasia CPT copyright 2020 [employer]. All rights reserved. The codes documented in this report are preliminary and upon woodwind instrument repairer reviewmay be revised to meet current compliance requirements. Ailyn Gray MD 11/02/2024 7:44:28 AM This report has been signed electronically.Ailyn Gray MD Number of Addenda: 0 Note Initiated On: 11/02/2024 7:35 AM Scope In: Scope Out: Endoscopy Department at [facility] - [address] [place] [phone] IMPRESSION: - Small hiatal hernia. - Esophageal mucosal changes secondary toestablished short-segment Gaspar's disease. Biopsied. - Normal stomach. - Normal examined duodenum. Recommendation: - Continue present medications. - Await pathology results. us Ailyn Gray MD GI~PROCEDURE ORDERABLES Final Result * Tissue exam (11/02/2024 7:40 AM EDT) Final Diagnosis A. Esophagus, distal, biopsies: Gaspar's esophagus. Negative for dysplasia. B. Ascending Colon, polyps x 3: Tubular adenomas, fragmented. C. Transverse Colon, polyps x 2: Two tubular adenomas. 11/03/2024 10:49 AM EDT [facility] Gross Description A. Esophagus, distal [...] multiple levels. hs/DG 11/03/2024 10:49 AM EDT [facility] Disclaimer Unless otherwise specified, all tissue is 10% NB formalin fixed and paraffin embedded. 11/03/2024 10:49 AM EDT [facility] Tissue Esophageal structure / Unknown 11/02/2024 7:40 AM EDT 11/02/2024 10:11 AM EDT Tissue specimen (specimen) Ascending colon structure / Unknown 11/02/2024 7:50 AM EDT 11/02/2024 10:11 AM EDT Tissue specimen (specimen) Transverse colon structure / Unknown 11/02/2024 7:53 AM EDT 11/02/2024 10:11 AM EDT Ailyn Gray MD LAB PATHOLOGY ORDERABLES Final Result [facility] [address] [place] [address], * (ABNORMAL) CBC auto differential (10/29/2024 3:58 PM EDT) WBC 7.7 4.8 - 10.8 K/mcL LAB HEMETOLOGY METHOD 10/29/2024 6:27 PM EDT [facility] RBC 4.90(H) 3.80 - 4.80 M/mcL LAB HEMETOLOGY METHOD 10/29/2024 6:27 PM EDT [facility] Hemoglobin 12.8 11.5 - 16.0 g/dL LAB HEMETOLOGY METHOD 10/29/2024 6:27 PM EDT [facility] Hematocrit 41.1 35.0 - 47.0 % LAB HEMETOLOGY METHOD 10/29/2024 6:27 PM EDT [facility] MCV 83.4 79.0 - 98.0 FL LAB HEMETOLOGY METHOD 10/29/2024 6:27 PM EDT [facility] MCH 26.0(L) 27.0 - 32.0 pcg LAB HEMETOLOGY METHOD 10/29/2024 6:27 PM EDT [facility] MCHC 31.1(L) 32.0 - 37.0 g/dL LAB HEMETOLOGY METHOD 10/29/2024 6:27 PM EDT [facility] RDW 19.9(H) 11.0 - 15.0 % LAB HEMETOLOGY METHOD 10/29/2024 6:27 PM EDT [facility] Platelets 242 130 - 400 K/mcL LAB HEMETOLOGY METHOD 10/29/2024 6:27 PM EDT [facility] MPV 9.5 7.0 - 11.0 FL LAB HEMETOLOGY METHOD [facility] NRBC 0.0 <1.0 % LAB HEMETOLOGY METHOD 10/29/2024 6:[address] [facility] NRBC Absolute 0.00 <0.10 K/mcL LAB HEMETOLOGY METHOD 10/29/2024 6[facility] Neutrophils Relative 51.7 % LAB HEMETOLOGY METHOD 10/29/2024 6:[address] [facility] Lymphocytes Relative 33.5 % LAB HEMETOLOGY METHOD 10/29/2024 6:[address] [facility] Monocytes Relative 11.4 % LAB HEMETOLOGY METHOD 10/29/2024 6:[address] [facility] Eosinophils Relative 2.1 % LAB HEMETOLOGY METHOD 10/29/2024 6:[address] [facility] Basophils Relative 0.9 % LAB HEMETOLOGY METHOD 10/29/2024 6:[address] [facility] Immature Granulocytes Relative 0.4 % LAB HEMETOLOGY METHOD 10/29/2024 6:[address] [facility] Neutrophils Absolute 4.00 1.50 - 7.00 K/mcL LAB HEMETOLOGY METHOD 10/29/2024 6:[facility] Lymphocytes Absolute 2.59 1.00 - 5.00 K/mcL LAB HEMETOLOGY METHOD 10/29/2024 6[facility] Monocytes Absolute 0.88 0.20 - 1.00 K/mcL LAB HEMETOLOGY METHOD 10/29/2024 6:[address] [facility] Eosinophils Absolute 0.16 0.00 - 0.50 K/mcL LAB HEMETOLOGY METHOD 10/29/2024 6:27 PM EDT [facility] Basophils Absolute 0.07 0.00 - 0.20 K/[facility] LAB HEMETOLOGY METHOD 10/29/2024 6:27 PM EDT [facility] Immature Granulocytes Absolute 0.03 0.00 - 0.03 K/[facility] LAB HEMETOLOGY METHOD 10/29/2024 6:27 PM EDT [facility] Blood Venous blood specimen / Unknown Venipuncture / Unknown 10/29/2024 3:58 PM EDT 10/29/2024 3:58 PM EDT us Bubba Nelson MD LAB BLOOD ORDERABLE S Final Result Performing Organization Address [facility]/ZIP Co de Phone Number [facility] [address] [place] [address], [place] [phone] * Iron and TIBC (10/29/2024 3:58 PM EDT) Iron 88 40 - 150 mcg/dL LAB CHEMISTRY METHOD 10/29/2024 7:44 PM EDT [facility] TIBC 306 250 - 450 mcg/dL LAB CHEMISTRY METHOD 10/29/2024 7:44 PM EDT [facility] Iron Saturation 29 15 - 50 % LAB CHEMISTRY METHOD 10/29/2024 7:44 PM EDT [facility] Blood Venous blood specimen / Unknown Venipuncture / Unknown 10/29/2024 3:58 PM EDT 10/29/2024 3:58 PM EDT us Bubba Nelson MD LAB BLOOD ORDERABLE S Final Result Performing Organization Address [facility]/ZIP Co de Phone Number [facility] [address] [place] [address], [place] [phone] * Ferritin (10/29/2024 3:58 PM EDT) Ferritin 31 8 - 252 ng/mL LAB CHEMISTRY METHOD 10/29/2024 7:[address] [facility] Blood Venous blood specimen / Unknown Venipuncture / Unknown 10/29/2024 3:58 PM EDT 10/29/2024 3:58 PM EDT Subramelvia Nelson MD LAB BLOOD ORDERABLE S Final Result [facility] [address] [place] [address], * Comprehensive metabolic panel (10/29/2024 3:58 PM EDT) [facility] Sodium 136 133 - 145 mmol/L LAB CHEMISTRY METHOD 10/29/2024 7:[address] [facility] Potassium 4.1 3.5 - 5.5 mmol/L LAB CHEMISTRY METHOD 10/29/2024 7:[address] [facility] Chloride 104 96 - 110 mmol/L LAB CHEMISTRY METHOD 10/29/2024 7:[address] [facility] CO2 25 21 - 32 mmol/L LAB CHEMISTRY METHOD 10/29/2024 7:[address] [facility] Anion Gap 7 3 - 11 LAB CHEMISTRY METHOD 10/29/2024 7:[address] [facility] Glucose 94 70 - 100 mg/dL LAB CHEMISTRY METHOD 10/29/2024 7:[address] [facility] BUN 16 5 - 25 mg/dL LAB CHEMISTRY METHOD 10/29/2024 7:[address] [facility] Creatinine 0.99 0.50 - 1.10 mg/dL LAB CHEMISTRY METHOD 10/29/2024 7:[address] [facility] eGFR 62 >=60 mL/min/1. 73m2 LAB CHEMISTRY METHOD 10/29/2024 7:27 PM T [facility] Comment:Calculation based on the Chronic Kidney Disease Epidemiology Collaboration (CKD-EPI) equation refit without adjustment for race. BUN/Creatinine Ratio 16.2 LAB CHEMISTRY METHOD 10/29/2024 7:[address] [facility] Calcium 9.3 8.5 - 10.5 mg/dL LAB CHEMISTRY METHOD 10/29/2024 7:[address] [facility] AST (SGOT) 24 10 - 42 unit/L LAB CHEMISTRY METHOD 10/29/2024 7:[address] [facility] ALT (SGPT) 27 10 - 60 unit/L LAB CHEMISTRY METHOD 10/29/2024 7:[address] [facility] Alkaline Phosphatase 93 42 - 121 unit/L LAB CHEMISTRY METHOD 10/29/2024 7:[address] [facility] Total Protein 7.0 6.0 - 8.0 g/dL LAB CHEMISTRY METHOD 10/29/2024 7:[address] [facility] Albumin 3.8 3.2 - 5.0 g/dL LAB CHEMISTRY METHOD 10/29/2024 7:[address] [facility] Total Bilirubin 0.7 0.0 - 1.4 mg/dL LAB CHEMISTRY METHOD 10/29/2024 7:[address] [facility] Blood Venous blood specimen / Unknown Venipuncture / Unknown 10/29/2024 3:58 PM EDT 10/29/2024 3:58 PM EDT us Bubba Nelson MD LAB BLOOD ORDERABLE S Final Result [facility] [address] [place] [address], [place] [phone] from Last 3 Months Insurance [facility] [employer] Member Subscriber Plan / Payer (Ef fective 2022-Present) Name:Emily Yoo Relation to Subscriber:Self Name:Emily Yoo Payer ID:[id number] Group ID:Not on file Type:Not on file Address: [place] [address] [place] [phone] Care Teams Maintenance Mechanic Engine Relationship Specialty Start Date End Date Sowmya Solorio NP [address] [place] [address] [address] [place] PCP - General Nurse Practitioner 04/28/24
== END 2025-01-15 11:30 | disposition home or self-care (01) ==
LOC: HO.PMC 10:57
PROVIDERS: PCP Nurse Practitioner; Visit Provider Nurse Practitioner Family
DX: M47.816 Spondylosis without myelopathy or radiculopathy, lumbar region (principal); M53.3 Sacrococcygeal disorders, not elsewhere classified; M51.369 Other intervertebral disc degeneration, lumbar region without mention of lumbar back pain or lower extremity pain; M54.16 Radiculopathy, lumbar region; M25.551 Pain in right hip; M25.552 Pain in left hip; M54.59 Other low back pain; G89.4 Chronic pain syndrome
CPT/HCPCS: 99024

== ENCOUNTER → 2025-01-15 10:57 | Outpatient (BNVA) | payer OTHER, SELFPAY | PROVIDERS: PCP Nurse Practitioner; Visit Provider Nurse Practitioner Family | DX: M47.816 Spondylosis without myelopathy or radiculopathy, lumbar region (principal); M53.3 Sacrococcygeal disorders, not elsewhere classified; M51.360 Other intervertebral disc degeneration, lumbar region with discogenic back pain only; M25.551 Pain in right hip; G89.4 Chronic pain syndrome | CPT/HCPCS: 99212 ==

== ENCOUNTER 2025-02-17 15:01 | Outpatient (AMB) | payer OTHER, SELFPAY ==
--- OUTSIDE RECORDS SUMMARY | 2025-02-12 16:40 | XMS_ITS | Encounter Summary ---
Author Organization [facility] Address [address] [place] [address] Care Team Providers Care Electrolytic De Scaler Name Role Phone Sowmya Solorio NP Primary Care Provider [phone] Encounter Details Date Type Department Care Team ([facility] Contact Info) Description 02/12/2025 4:40 PM EDT Lab Draw Station - [address] [phone] Hereditary hemochromatosis (CMS/HCC V24) Social History Tobacco Use Types Packs/Day Years [...] PM EDT Sexual Orientation Not on file documented as of this encounter Plan of Treatment Upcoming Encounters Date Type Department Care Team (Late Contact Info) Description 02/19/2025 3:30 PM EDT Office Visit [facility] Hematology Oncology [address] [place] [phone] Bubba Nelson MD [address] [place] [phone] documented as of this encounter Procedures Procedure Name Priority Date/Time Associated Diagnosis Comments CBC WITH AUTO DIFFERENTIAL Routine 02/12/2025 4:40 PM EDT Hereditary hemochromatosis ([facility] V24) IRON AND TIBC Routine 02/12/2025 4:40 PM EDT Hereditary hemochromatosis ([facility] V24) CBC AND DIFFERENTIAL Routine 02/12/2025 4:40 PM EDT Hereditary hemochromatosis ([facility]/H[facility] V24) FERRITIN Routine 02/12/2025 4:40 PM EDT Hereditary hemochromatosis ([facility]/HCC V24) COMPREHENSIVE METABOLIC PANEL Routine 02/12/2025 4:40 PM EDT Hereditary hemochromatosis ([facility]/HCC V24) documented in this encounter Results * (ABNORMAL) CBC auto differential (02/12/2025 4:40 PM EDT) [facility] WBC 7.3 4.8 - 10.8 K/mcL LAB [facility]EMETOLOGY [facility] RBC 4.60 3.80 - 4.80 M/mcL LAB HEMETOLOGY METHOD 02/12[facility]2025 [facility] Hemoglobin 13.3 11.5 - 16.0 g/dL LAB HEMETOLOGY METHOD 02/12/2025 6:09 PM [facility] Hematocrit 40.8 35.0 - 47.0 % LAB HEMETOLOGY METHOD 02/12/2025 6:09 PM EDT [facility] MCV 87.9 79.0 - 98.0 FL LAB HEMETOLOGY METHOD 02/12/2025 6:[facility] MCH 28.7 27.0 - 32.0 pcg LAB HEMETOLOGY METHOD 02/12/2025 6:09 PM [facility] MCHC 32.6 32.0 - 37.0 g/dL LAB HEMETOLOGY METHOD 02/12/2025 6:09 PM [facility] RDW 14.9 11.0 - 15.0 % LAB HEMETOLOGY METHOD 02/12/2025 6:[facility] Platelets 227 130 - 400 K/mcL LAB HEMETOLOGY METHOD 02/12/2025 6:09 PM [facility] MPV 9.1 7.0 - 11.0 FL LAB HEMETOLOGY METHOD 02/12/2025 6:09 PM [facility] NRBC 0.0 <1.0 % LAB HEMETOLOGY METHOD 02/12/2025 6:09 PM [facility] NRBC Absolute 0.00 <0.10 K/mcL LAB HEMETOLOGY METHOD 02/12/2025 6:09 PM [facility] Neutrophils Relative 40.1 % LAB HEMETOLOGY METHOD 02/12/2025 6:09 PM [facility] Lymphocytes Relative 46.2 % LAB HEMETOLOGY METHOD 02/12/2025 6:09 PM [facility] Monocytes Relative 9.6 % LAB HEMETOLOGY METHOD 02/12/2025 6:09 PM [facility] Eosinophils Relative 2.6 % LAB HEMETOLOGY METHOD 02/12/2025 6:09 PM [facility] Basophils Relative 1.0 % LAB HEMETOLOGY METHOD 02/12/2025 6:09 PM [facility] Immature Granulocytes Relative 0.5 % LAB HEMETOLOGY METHOD 02/12/2025 6:09 PM [facility] Neutrophils Absolute 2.93 1.50 - 7.00 K/mcL LAB HEMETOLOGY METHOD 02/12/2025 6:09 PM [facility] Lymphocytes Absolute 3.38 1.00 - 5.00 K/mcL LAB HEMETOLOGY METHOD 02/12/2025 6:09 PM EDT [facility] Monocytes Absolute 0.70 0.20 - 1.00 K/mcL LAB HEMETOLOGY METHOD 02/12/2025 6:09 PM EDT [facility] Eosinophils Absolute 0.19 0.00 - 0.50 K/[facility] HEMETOLOGY METHOD 02/12/2025 6:09 PM EDT [facility] Basophils Absolute 0.07 0.00 - 0.20 K/[facility] HEMETOLOGY METHOD 02/12/2025 6:09 PM EDT [facility] Immature Granulocytes Absolute 0.04(H) 0.00 - 0.03 K/[facility] HEMETOLOGY METHOD 02/12/2025 6:09 PM EDT [facility] Blood Venous blood specimen / Unknown Venipuncture / Unknown 02/12/2025 4:40 PM EDT 02/12/2025 4:40 PM EDT us Bubba Nelson MD LAB BLOOD ORDERABLE S Final Result [facility] [address] [place] [address], * Iron and TIBC (02/12/2025 4:40 PM EDT) Iron 109 40 - 150 mcg/dL LAB CHEMISTRY METHOD 02/12/2025 6:24 PM EDT [facility] TIBC 313 250 - 450 mcg/dL LAB CHEMISTRY METHOD 02/12/2025 6:24 PM EDT [facility] Iron Saturation 35 15 - 50 % LAB CHEMISTRY METHOD 02/12/2025 6:24 PM EDT [facility] Blood Venous blood specimen / Unknown Venipuncture / Unknown 02/12/2025 4:40 PM EDT 02/12/2025 4:40 PM EDT us Bubba Nelson MD LAB BLOOD ORDERABLE S Final Result Performing Organization Address City/[facility]/ZIP Co de Phone Number [facility] [address] [place] [address], [place] [phone] * Ferritin (02/12/2025 4:40 PM EDT) Pathologist [facility] Ferritin 28 8 - 252 ng/mL LAB CHEMISTRY METHOD 02/12/2025 6:24 PM EDT [facility] Blood Venous blood specimen / Unknown Venipuncture / Unknown 02/12/2025 4:40 PM EDT 02/12/2025 4:40 PM EDT us Bubba Nelson MD LAB BLOOD ORDERABLE S Final Result Performing Organization Address [facility]/ZIP Co de Phone Number [facility] [address] [place] [address], [place] [phone] * (ABNORMAL) Comprehensive metabolic panel (02/12/2025 4:40 PM EDT) [facility] Sodium 139 133 - 145 mmol/L LAB CHEMISTRY METHOD 02/12/2025 6:24 PM EDT [facility] Potassium 3.8 3.5 - 5.5 mmol/L LAB CHEMISTRY METHOD 02/12/2025 6:24 PM EDT [facility] Chloride 107 96 - 110 mmol/L LAB CHEMISTRY METHOD 02/12/2025 6:24 PM EDT [facility] CO2 29 21 - 32 mmol/L LAB CHEMISTRY METHOD 02/12/2025 6:24 PM EDT [facility] Anion Gap 3 3 - 11 LAB CHEMISTRY METHOD 02/12/2025 6:24 PM EDT [facility] Glucose 105(H) 70 - 100 mg/dL LAB CHEMISTRY METHOD 02/12/2025 6:24 PM EDT [facility] BUN 17 5 - 25 mg/dL LAB CHEMISTRY METHOD 02/12/2025 6:24 PM [facility] Creatinine 0.96 0.50 - 1.10 mg/dL LAB CHEMISTRY METHOD 02/12/2025 6:24 PM [facility] eGFR 64 >=60 mL/min/1. 73m2 LAB CHEMISTRY METHOD 02/12/2025 6:24 PM [facility] Comment:Calculation based on the Chronic Kidney Disease Epidemiology Collaboration (CKD-EPI) equation refit without adjustment for race. BUN/Creatinine Ratio 17.7 LAB CHEMISTRY METHOD 02/12/2025 6:24 PM [facility] Calcium 9.3 8.5 - 10.5 mg/dL LAB CHEMISTRY METHOD 02/12/2025 6:24 PM [facility] AST (SGOT) 19 10 - 42 unit/L LAB CHEMISTRY METHOD 02/12/2025 6:24 PM [facility] ALT (SGPT) 28 10 - 60 unit/L LAB CHEMISTRY METHOD 02/12/2025 6:24 PM [facility] Alkaline Phosphatase 88 42 - 121 unit/L LAB CHEMISTRY METHOD 02/12/2025 6:24 PM [facility] Total Protein 6.7 6.0 - 8.0 g/dL LAB CHEMISTRY METHOD 02/12/2025 6:24 PM [facility] Albumin 3.9 3.2 - 5.0 g/dL LAB CHEMISTRY METHOD 02/12/2025 6:24 PM [facility] Total Bilirubin 0.8 0.0 - 1.4 mg/dL LAB CHEMISTRY METHOD 02/12/2025 6:24 PM [facility] Blood Venous blood specimen / Unknown Venipuncture / Unknown 02/12/2025 4:40 PM EDT 02/12/2025 4:40 PM EDT us Subramony SubramAngelina BUTLER LAB BLOOD ORDERABLE S Final Result [facility] [address] [place] [address], documented in this encounter Visit Diagnoses Diagnosis Hereditary hemochromatosis (CMS/HCC V24) Hereditary hemochromatosis documented in this encounter Care Teams Electrolytic De Scaler Relationship Specialty Start Date End Date Sowmya Solorio NP [address] [place] [address] Rd [address] [place], [place] PCP - General Nurse Practitioner 04/28/24 documented as of this encounter
--- NOTE | 2025-02-17 15:07 | A.OFFVIS_ITS ---
Vital Signs 02/17/25 15:08 Weight 151 lb BP 158/95 H Blood Pressure Location Lt brachial Position Sitting Respiration 18 Pulse 87 Pulse Source Pulse Oximeter Pulse Oximetry (%) 99 Oxygen Delivery Method Room Air Intake Visit Reasons: Discuss Treatment Riprap Placer Required: No Allergies sulfamethoxazole (From Bactrim) Allergy (Mild, Verified 02/17/25 15:10) Hives trimethoprim (From Bactrim) Allergy (Mild, Verified 02/17/25 15:10) Hives morphine Adverse Reaction (Severe, Verified 02/17/25 15:10) CAN NOT CONTROL BEHAVIOR HPI Comments Details: Emliy is in my office to discuss possibility of treatment of her pain with topical applications of lidocaine. She is also interested in continuation of try neuromodulation. She tried [employer] spinal cord stimulator trial and it was not effective for her. She also received multiple injections listed as below to help her pain. She brought us today the appeal note from the insurance [employer], we will fill it up and send it to insurance [employer] in the attempt to change the your decision to deny the lidocaine patch. I also discussed with the patient briefly possibility of treating her pain with intrathecal drug delivery system pain pump. Her pain is mostly nociceptive and the treatment with pain pump could be difficult. However I do not mind to perform several medications trials to help the pain of this patient. I gave her [employer] brochure to read. The patient will read the brochure and if she is interested she will give us a call and schedule appointment to discuss I DDD. Prior: The patient is a 69-year-old female presenting with postoperative evaluation following [employer] lumbar spinal cord stimulator trial. The patient underwent a lumbar spinal cord stimulator trial to manage chronic back and leg pain, particularly targeting neuropathic and radiculopathy-related pain. The trial provided approximately 50% relief for nerve pain, particularly in the legs, although the back pain remained significant. The patient reports that the stimulator trial did not significantly alleviate arthritic back pain. She experienced some improvement in nerve pain, with the left foot initially being more affected, but later the right foot also experienced pain relief. Reprogramming of the stimulator was performed mid-week to enhance pain relief in the hips and back, which improved the patient's condition by the end of the week. The patient describes postoperative pain at the site of the stimulator leads, particularly noting discomfort from the lead placement on the spine. She reports no adverse effects from the stimulator itself, although there was some itchiness and sensitivity due to the tape used at the surgical site. The surgical site shows no signs of infection, with no drainage, warmth, or swelling observed. - Pain level reported as 7/10, primarily in the back - Nerve pain in the legs improved by approximately 50% with the stimulator - Arthritic pain not significantly relieved by the stimulator - Postoperative pain at the site of the stimulator leads, particularly on the spine - Affect: No specific impact on mood or psychological wellbeing discussed - Analgesia: Current pain level is 7/10; tramadol and ibuprofen are used for pain management - Adverse Effects: No adverse effects from the stimulator; some itchiness and sensitivity due to tape - Activities of Daily Living: Some improvement in walking and daily activities noted - Aberrant Drug Related Behaviors: No signs of medication abuse or misuse discu ssed Past Procedure: 01/08/25: [employer] lumbar spinal cord stimulator trial-50% pain relief 07/23/23: Bilateral L5-S1 TFESI-100% pain relief for right side, 40-50% pain relief for left side 04/05/23: Bilateral Therapeutic SIJ injections-0% pain relief 08/03/22: Left SIJ steroid injection-80% pain relief for 4 weeks 07/28/21: Bilateral L4-L5, L5-S1 facet therapeutic injections-0% pain relief PRIOR: Patient presents today to request a repeat of the sacroiliac joint injection. She requests me to perform bilateral sacroiliac joint injection. She complains on multiple widespread all body pain as well. She reports pain in the right shoulder, pain in bilateral hands, pain in bilateral lower extremities. She tried diclofenac however she cannot use diclofenac as much as she wants to because it effects children around her and her animals. I recommend her to were gloves when and after she applies diclofenac to herself. She tried meloxicam however meloxicam causes skin bruising on her. I recommend her to try vitamin P in combination with meloxicam it probably can help for her pain. And the past she reported 80% pain relief for 4 weeks after procedure with notable increase in her mobility, functioning, better sleep and better social interactions. Patient continues to endorse multiple joint pain especially in her both hands. She also presents with mild to moderate right sided SIJ pain and requests to repeat bilateral therapeutic SIJ injections with sedation. Her pain is localized in lower back extending to both upper buttocks and lateral hips wi th intermittent radiation of pain into her left groin. She will be scheduled for bilateral sacroiliac joint injection under sedation. She requests me to put her on opioid program here. I explained to her that due to staffing shortage we cannot put her on opioid program. I had explained to her that the longer she is staying on opioids chronically the worse her pain will become not better. I recommended her that her psychiatrist which prescribes her her antidepressant will attempt to switch her to amitriptyline or sertraline. She complains of cervicalgia I recommended her to get engaged with physical therapy. I will refer her for physical therapy. Past Procedure: 08/03/22: Left SIJ steroid injection-80% pain relief for 4 weeks 07/28/21: Bilateral L4-L5, L5-S1 facet therapeutic injections-0% pain relief PRIOR: Patient is a pleasant 66 years old female who has been previously seen in this office by Dr. Sosa. She presents today to assess response to bilateral facet joint therapeutic injections L4-L5 and L5-S1 on 07/28/21 under sedation. Patient reports previous injection on 07/28/21 provided her 0% pain relief. Prior to that, she had same injection on 04/27/2021 with 90% pain relief. Patient reports her mobility has decreased, with walking for any distance and standing over 10-15 minutes exacerbates her axial pain that goes across her lower back and her bilateral hip. We reviewed her MRI lumbar from 09/2020 that was significant for a large central disc osteophyte protrusion continues to compress the traversing S1 nerve roots within the subarticular zones bilaterally at L5-S1 level, and multifactorial degenerative changes result in stable moderate to severe bilateral foraminal stenosis with mass effect on the exiting L5 nerve roots bilaterally. Also, at L4-L5, a broad-based central disc protrusion continues to compress the traversing L5 nerve roots within the subarticular zones bilaterally. Patient competed physical therapy a year ago with very minimal improvements. Patient reports her neck pain has been most troublesome now that causes her significant headaches and muscle spasms. She reports history of anterior cervical fusion using titanium at C5-6 at [facility] over 20 years ago. She does not recall if she had any cervical injections since surgery. She has been regularly seen by Dr. Johnson and had cervical imaging completed at [facility]. She presents with painful cervical ROM, especially with extension, flexion, and right lateral bending. Patient denies any fever, abdominal or groin pain, numbness, tingling, dizziness, chest pain, weight changes, bladder/bowel dysfunction or saddle anesthesia. She reports intermittent weakness. [facility] Medical History Chest pain HTN (hypertension) Hemochromatosis Elevated cholesterol Hx of attention deficit disorder COPD (chronic obstructive pulmonary disease) Hx of insomnia Depression 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 Surgical History H/O shoulder surgery Hx of cervical spine surgery History of surgery Family History Father Heart disease Mother Lung cancer Other Family history of osteoarthritis Social History Alcohol intake: current Alcohol intake frequency: does not drink Comment: chronic Patient Tobacco Use Status: Former Tobacco user Tobacco use type: Cigarette Review of Systems Const All systems reviewed & are unremarkable except as noted in HPI and below Physical Exam Vital Signs: Last Vital Signs Pulse 87 02/17/25 15:08 Resp 18 02/17/25 15:08 BP 158/95 H 02/17/25 15:08 Pulse Ox 99 02/17/25 15:08 Oxygen Delivery Method Room Air 02/17/25 15:08 General: Appears afebrile. Alert and oriented. Mood and affect appropriate. Follows and participates in conversation appropriately. Respiratory effort is unlabored. No cough. Able to transition from sit to stand unassisted. Ambulates with bilaterally normal heel strike and toe off, reports increased pain with toes standing, L>R. General: Yes no CVA tenderness Back/Spine/Pelvis Other: Trial leads pulled out with tip intact. Site looks clean dry intact. No pathological discharge, redness, swelling, erythema or tenderness. Site dressed with bacitracin and Tegaderm following lead removal. Back: no CVA tenderness Cervical Spine: cervical muscular tenderness, pain with cervical ROM, No Cervical spine tenderness and No step off deformity Thoracic/Lumbar Spine: thoracic and lumbar spine normal to inspection, Thoracic/lumbar spine scar(s), pain with thoraco-lumbar ROM, paraspinal muscle tenderness, No thoracic spinal tenderness and lumbar spinal tenderness at L4 and at L5 Pelvis: buttock tenderness bilaterally Sacroiliac joints: bilaterally tender to palpation Assessment & Plan Assessment & Plan (1) Spondylosis of lumbar spine: Code(s): M47.816 - Spondylosis without myelopathy or radiculopathy, lumbar region Category: Medical (2) Sacroiliac joint pain: Code(s): M53.3 - Sacrococcygeal disorders, not elsewhere classified Category: Medical (3) Lumbar degenerative disc disease: Code(s): M51.36 - Other intervertebral disc degeneration, lumbar region Category: Medical (4) Lumbar radiculopathy: Code(s): M54.16 - Radiculopathy, lumbar region Category: Medical (5) Bilateral hip pain: Code(s): M25.551 - Pain in right hip; M25.552 - Pain in left hip Category: Medical (6) Intractable low back pain: Code(s): M54.59 - Other low back pain Category: Medical (7) Chronic pain syndrome: Code(s): G89.4 - Chronic pain syndrome Category: Medical Plan Richard wants today to appeal the decision of the insurance company about lidocaine patch. We will fill up necessary paperwork. The prescription was sent to her pharmacy. Also she received brochure of [employer]. If she is interested she would need to give us a call and schedule appointment we will discuss this modality of pain treatment. Medications: New lidocaine 5% leave on most painful area for up to 12 hrs 2 patches topical DAILY 30 ea 8RF 30 days Coding Level of Care Code Est Pt Level 3 (08329) Diagnoses Spondylosis of lumbar spine M47.816 Sacroiliac joint pain M53.3 Lumbar degenerative disc disease M51.36 Lumbar radiculopathy M54.16 Bilateral hip pain M25.551; M25.552 Intractable low back pain M54.59 Chronic pain syndrome G89.4
[2025-02-17 15:08] VITALS: BP 158/95; PULSE 87; RESP 18; O2SAT 99
--- OUTSIDE RECORDS SUMMARY | 2025-02-17 17:11 | XMS_ITS | Clinical Summary ---
Author Organization [facility] Address [address] [place] [address] Phone Care Team Providers Care Industrial Psychology Professor Name Role Phone Sowmya Solorio NP Primary Care Provider [phone] Allergies Active Allergy Reactions Criticality Noted Date [...] Problem Noted Date Diagnosed Date Hereditary hemochromatosis ([facility] V24) 025 Anxiety disorder 04/30/2024 Depression 04/30/2024 Emphysema/COPD ([facility] V24, [facility] V28) 2023 Multiple pulmonary nodules 04/30/2024 Jones's esophagus without dysplasia 04/30/2024 Thoracic spine pain 10/25/2010 Cervicocranial syndrome 10/18/2010 Degenerative arthritis of cervical spine 011 Radiculitis, cervical 08/10/2010 Hand pain 04/24/2010 Radiculitis, lumbosacral 09/28/2009 Fibromyalgia 07/29/2009 Neck pain 07/29/2009 Low back pain 07/29/2009 Encounters Date Type Department Care Team Description 02/12/2025 4:40 PM EDT Lab Draw Station - [address] [phone] Hereditary hemochromatosis ([facility] V24) 11/23/2024 Telephone Gastroenterology - [address] [facility] [address] [facility] [address] [place] [phone] Ailyn Gray MD 11/19/2024 3:00 PM EDT Office Visit [facility] Hematology Oncology [address] [place] [address] Luis-Bubba Marlow MD Hereditary hemochromatosis ([facility] V24) (Primary Dx); Iron deficiency anemia due to chronic blood loss from Last 3 Months Surgical History Surgery Date Site/Laterality Comments OTHER SURGICAL HISTORY 2000 PROCEDURE: [place] LAMOT PRTL FFD EXC DISC REEXPL 1 NTRSPC CERVICAL OTHER SURGICAL HISTORY 2010 Left PROCEDURE: [place] SURGICAL ARTHROSCOPY SHOULDER LMTD DBRDMT 06/18 ESOPHAGOGASTRODUODENOSCOPY 08/22/2021 3 year recall h/o barretts COLONOSCOPY 08/22/2021 3 year recall phx polyps COLONOSCOPY 09/06/2015 3 year recall ESOPHAGOGASTRODUODENOSCOPY 01/02/2012 TOTAL SHOULDER ARTHROPLASTY Left Medical History Medical History Date Comments COPD (chronic obstructive pu lmonary disease) ([facility] V24, [facility] V28) DX:COPD [...] Care Team (Late st Contact Info) Description 02/19/2025 3:30 PM EDT Office Visit [facility] Hematology Oncology [address] [place] [phone] Bubba Nelson MD [address] [place] [phone] Health Maintenance Due Date Last Done Comments [...] 05/16/2022 Social Influencers of Health Screening 05/16/2022 Depression Screening 06/17/2024 COVID-19 Vaccine (2023-2 5 season) 2025 Influenza Vaccine (#1) 2025 03/03/2010 Colorectal Cancer [...] Routine 02/12/2025 4:40 PM EDT Hereditary hemochromatosis (CMS/HCC V24) IRON AND TIBC Routine 02/12/2025 4:40 PM EDT Hereditary hemochromatosis (CMS/HCC V24) FERRITIN Routine 02/12/2025 4:40 PM EDT Hereditary hemochromatosis (CMS/HCC V24) CBC AND DIFFERENTIAL Routine 02/12/2025 4:40 PM EDT Hereditary hemochromatosis (CMS/HCC V24) COMPREHENSIVE METABOLIC PANEL Routine 02/12/2025 4:40 PM EDT Hereditary hemochromatosis (CMS/HCC V24) COLONOSCOPY Routine 11/02/2024 7:59 AM EDT GERD (gastroesophageal reflux disease) Constipation, unspecified constipation type from Last 3 Months or Most Recently Relevant to Health Maintenance Results * (ABNORMAL) CBC auto differential (02/12/2025 4:40 PM EDT) [facility] WBC 7.3 4.8 - 10.8 K/mcL LAB [facility] RBC 4.60 3.80 - 4.80 M/mcL LAB HEMETOLOGY METHOD 02/12/2025 6:09 PM EDT [facility] Hemoglobin 13.3 11.5 - 16.0 g/dL LAB HEMETOLOGY METHOD 02/12/2025 6:09 PM [facility] Hematocrit 40.8 35.0 - 47.0 % LAB HEMETOLOGY METHOD 02/12/2025 6:09 PM [facility] MCV 87.9 79.0 - 98.0 FL LAB HEMETOLOGY METHOD [facility] MCH 28.7 27.0 - 32.0 pcg LAB HEMETOLOGY METHOD 02/12/2025 6:09 PM [facility] MCHC 32.6 32.0 - 37.0 g/dL LAB HEMETOLOGY METHOD 02/12/2025 6:09 PM [facility] RDW 14.9 11.0 - 15.0 % LAB HEMETOLOGY METHOD 02/12/2025 6:09 PM [facility] Platelets 227 130 - 400 K/mcL LAB HEMETOLOGY METHOD 02/12/2025 6:09 PM [facility] MPV 9.1 7.0 - 11.0 FL LAB HEMETOLOGY METHOD [facility] NRBC 0.0 <1.0 % LAB HEMETOLOGY METHOD 02/12/2025 6:09 PM [facility] NRBC Absolute 0.00 <0.10 K/mcL LAB HEMETOLOGY METHOD 02/12/2025 6:09 PM [facility] Neutrophils Relative 40.1 % LAB HEMETOLOGY METHOD 02/12/2025 6:09 PM [facility] Lymphocytes Relative 46.2 % LAB HEMETOLOGY METHOD 02/12/2025 6:09 PM [facility] Monocytes Relative 9.6 % LAB HEMETOLOGY METHOD 02/12/2025 6:09 PM [facility] Eosinophils Relative 2.6 % LAB HEMETOLOGY METHOD 02/12/2025 6:09 PM [facility] Basophils Relative 1.0 % LAB HEMETOLOGY METHOD 02/12/2025 6:09 PM [facility] Immature Granulocytes Relative 0.5 % LAB HEMETOLOGY METHOD 02/12/2025 6:09 PM [facility] Neutrophils Absolute 2.93 1.50 - 7.00 K/mcL LAB HEMETOLOGY METHOD 02/12/2025 6:09 PM [facility] Lymphocytes Absolute 3.38 1.00 - 5.00 K/mcL LAB HEMETOLOGY METHOD 02/12/2025 6:09 PM [facility] Monocytes Absolute 0.70 0.20 - 1.00 K/mcL LAB HEMETOLOGY METHOD 02/12/2025 6:09 PM [facility] Eosinophils Absolute 0.19 0.00 - 0.50 K/mcL LAB HEMETOLOGY METHOD 02/12/2025 6:09 PM [facility] Basophils Absolute 0.07 0.00 - 0.20 K/mcL LAB HEMETOLOGY METHOD 02/12/2025 6:09 PM [facility] Immature Granulocytes Absolute 0.04(H) 0.00 - 0.03 K/mcL LAB HEMETOLOGY METHOD 02/12/2025 6:09 PM EDT [facility] Blood Venous blood specimen / Unknown Venipuncture / Unknown 02/12/2025 4:40 PM EDT 02/12/2025 4:40 PM EDT us Bubba Nelson MD LAB BLOOD ORDERABLE S Final Result Performing Organization Address [facility] Co de Phone Number [facility] [address] [place] [address], [place] [phone] * Iron and TIBC (02/12/2025 4:40 PM EDT) Iron 109 40 - 150 mcg/dL LAB CHEMISTRY METHOD 02/12/2025 6:24 PM EDT [facility] TIBC 313 250 - 450 mcg/dL LAB CHEMISTRY METHOD 02/12/2025 6:24 PM EDT [facility] Iron Saturation 35 15 - 50 % LAB CHEMISTRY METHOD 02/12/2025 6:24 PM EDT [facility] Blood Venous blood specimen / Unknown Venipuncture / Unknown 02/12/2025 4:40 PM EDT 02/12/2025 4:40 PM EDT us Bubba Nelson MD LAB BLOOD ORDERABLE S Final Result Performing Organization Address City/[facility] Co de Phone Number [facility] [address] [place] [address], [place] [phone] * Ferritin (02/12/2025 4:40 PM EDT) Ferritin 28 8 - 252 ng/mL LAB CHEMISTRY METHOD 02/12/2025 6:24 PM EDT [facility] Blood Venous blood specimen / Unknown Venipuncture / Unknown 02/12/2025 4:40 PM EDT 02/12/2025 4:40 PM EDT us Bubba Nelson MD LAB BLOOD ORDERABLE S Final Result [facility] [address] [place] [address], [place] [phone] * (ABNORMAL) Comprehensive metabolic panel (02/12/2025 4:40 PM EDT) Sodium 139 133 - 145 mmol/L LAB CHEMISTRY METHOD 02/12/2025 6:24 PM EDT [facility] Potassium 3.8 3.5 - 5.5 mmol/L LAB CHEMISTRY METHOD 02/12/2025 6:24 PM [facility] Chloride 107 96 - 110 mmol/L LAB CHEMISTRY METHOD 02/12/2025 6:24 PM [facility] CO2 29 21 - 32 mmol/L LAB CHEMISTRY METHOD 02/12/2025 6:24 PM [facility] Anion Gap 3 3 - 11 LAB CHEMISTRY METHOD 02/12/2025 6:24 PM [facility] Glucose 105(H) 70 - 100 mg/dL LAB CHEMISTRY METHOD 02/12/2025 6:24 PM [facility] BUN 17 5 - 25 mg/dL LAB CHEMISTRY METHOD 02/12/2025 6:24 PM [facility] Creatinine 0.96 0.50 - 1.10 mg/dL LAB CHEMISTRY METHOD 02/12/2025 6:24 PM [facility] eGFR 64 >=60 mL/min/1. 73m2 LAB CHEMISTRY METHOD 02/12/2025 6:24 PM [facility] Comment:Calculation based on the Chronic Kidney Disease Epidemiology Collaboration (CKD-EPI) equation refit without adjustment for race. BUN/Creatinine Ratio 17.7 LAB CHEMISTRY METHOD 02/12/2025 6:24 PM [facility] Calcium 9.3 8.5 - 10.5 mg/dL LAB CHEMISTRY METHOD 02/12/2025 6:24 PM EDT [facility] AST (SGOT) 19 10 - 42 unit/L LAB CHEMISTRY METHOD 02/12/2025 6:24 PM EDT [facility] ALT (SGPT) 28 10 - 60 unit/L LAB CHEMISTRY METHOD 02/12/2025 6:24 PM EDT [facility] Alkaline Phosphatase 88 42 - 121 unit/L LAB CHEMISTRY METHOD 02/12/2025 6:24 PM EDT [facility] Total Protein 6.7 6.0 - 8.0 g/dL LAB CHEMISTRY METHOD 02/12/2025 6:24 PM EDT [facility] Albumin 3.9 3.2 - 5.0 g/dL LAB CHEMISTRY METHOD 02/12/2025 6:24 PM EDT [facility] Total Bilirubin 0.8 0.0 - 1.4 mg/dL LAB CHEMISTRY METHOD 02/12/2025 6:24 PM EDT [facility] Blood Venous blood specimen / Unknown Venipuncture / Unknown 02/12/2025 4:40 PM EDT 02/12/2025 4:40 PM EDT Subramony Leslie BUTLER LAB BLOOD ORDERABLE S Final Result [facility] [address] [place] [address], * COLONOSCOPY Anesthesia - MAC; [facility] ENDOSCOPY (11/02/2024 7:59 AM EDT) Anatomical Region [...] pathology results. Narrative 11/02/2024 8:00 AM EDT [facility] GI Patient Name: Almita Yoo Procedure [...] not prolapse). Procedure Code(s): --- Professional --- 30356, Colonoscopy, flexible; with removal of tumor(s), polyp(s), or other lesion(s) by snare technique Diagnosis Code(s): --- Professional --- Z86.010, Personal history of colonic polyps D12.2, Benign neoplasm of ascending colon D12.3, Benign neoplasm of transverse colon (hepatic flexure or splenic flexure) CPT copyright 2020 [employer]. All rights reserved. The codes documented in this report are preliminary and upon animal chiropractor review may be revised to meet current compliance requirements. Ailyn Gray MD 11/02/2024 8:00:43 AM This report has been signed electronically.Ailyn Gray MD Number of Addenda: 0 Note Initiated On: 11/02/2024 7:44 AM Scope In: Scope Out: Endoscopy Department at [facility] - [address] [place] [phone] Procedure Note Ailyn Gray MD - 11/02/2024 [facility] GI Patient Name: Almita Yoo Procedure [...] not prolapse). Procedure Code(s): --- Professional --- 02475, Colonoscopy, flexible; with removal of tumor(s), polyp(s), or other lesion(s) by snare technique Diagnosis Code(s): --- Professional --- Z86.010, Personal history of colonic polyps D12.2, Benign neoplasm of ascending colon D12.3, Benign neoplasm of transverse colon (hepatic flexure or splenic flexure) CPT copyright 2020 [employer]. All rights reserved. The codes documented in this report are preliminary and upon animal chiropractor reviewmay be revised to meet current compliance requirements. Ailyn Gray MD 11/02/2024 8:00:43 AM This report has been signed electronically.Ailyn Gray MD Number of Addenda: 0 Note Initiated On: 11/02/2024 7:44 AM Scope In: Scope Out: Endoscopy Department at [facility] - [address] [place] [phone] IMPRESSION: - The examined portion of the [...] Ailyn Gray MD GI~PROCEDURE ORDERABLES Final Result from Last 3 Months or Most Recently Relevant to Health Maintenance Insurance [facility] [employer] Member Subscriber Plan / Payer (Ef fective 2022-Present) Name:Emily Yoo Relation to Subscriber:Self Name:Emily Yoo Payer ID:[id number] Group ID:[id number] Type:Not on file Address: [place] [address] [place] [phone] Care Teams Industrial Psychology Professor Relationship Specialty Start Date End Date Sowmya Solorio NP [address] [facility] [address] [place], [place] PCP - General Nurse Practitioner 04/28/24
== END 2025-02-17 15:23 | disposition home or self-care (01) ==
LOC: HO.PMC 15:02
PROVIDERS: PCP Nurse Practitioner; Visit Provider Anesthesiology
DX: M47.816 Spondylosis without myelopathy or radiculopathy, lumbar region (principal); M53.3 Sacrococcygeal disorders, not elsewhere classified; M51.369 Other intervertebral disc degeneration, lumbar region without mention of lumbar back pain or lower extremity pain; M54.16 Radiculopathy, lumbar region; M25.551 Pain in right hip; M25.552 Pain in left hip; M54.59 Other low back pain; G89.4 Chronic pain syndrome
CPT/HCPCS: 99213

== ENCOUNTER → 2025-02-17 15:01 | Outpatient (BNVA) | payer OTHER, SELFPAY | PROVIDERS: PCP Nurse Practitioner; Visit Provider Anesthesiology | DX: M47.816 Spondylosis without myelopathy or radiculopathy, lumbar region (principal); M53.3 Sacrococcygeal disorders, not elsewhere classified; M51.360 Other intervertebral disc degeneration, lumbar region with discogenic back pain only; M54.16 Radiculopathy, lumbar region; M25.551 Pain in right hip; M25.552 Pain in left hip; G89.4 Chronic pain syndrome | CPT/HCPCS: 99212 ==